=== PATIENT | female | born 1960 | race Caucasian/White ===

== ENCOUNTER → 2017-11-04 09:16 | Outpatient (CLI) | payer OTHER, SELFPAY ==
--- NOTE | 2017-11-04 | DI.MRI.S_ITS ---
PROCEDURE: MR KNEE RT W CON INDICATIONS: Right knee tear TECHNIQUE: After the administration of 50 mL of dilute intra-articular Gadolinium contrast, sagittal T1 spin echo with fat saturation and PD fast spin echo with fat saturation, coronal T1 spin echo with and without fat saturation, coronal T2 fast spin echo with fat saturation, axial PD fast spin echo with fat saturation through the knee. COMPARISON: [facility], MR, KNEE WITH CONTRAST, 07/26/2015, 10:11. FINDINGS: Image quality: Excellent. Menisci: Poorly defined, intrasubstance signal change within the medial meniscal body and posterior horn suggesting fluid degeneration. No definite intrasubstance gadolinium signal intensity. Overall, this appearance is unchanged The lateral meniscus appears intact. Cruciate ligaments: Postsurgical changes related to ACL graft as before. The graft appears intact. The PCL appears intact. Medial structures: The medial collateral ligament appears intact. The posterior oblique ligament, semimembranosus tendon insertions, oblique popliteal ligament, and meniscocapsular junction appear intact. Visualized portions of the pes anserinus tendons appear normal. No abnormal bursal fluid. Lateral structures: The lateral collateral ligament, long and short heads of the biceps femoris tendon appear intact. The popliteus tendon appears normal; the popliteofibular ligament appears intact. The posterosuperior and anteroinferior popliteomeniscal fascicles appear intact. The arcuate and fabellofibular ligaments appear intact around the lateral inferior geniculate artery. Iliotibial band appears normal. Anterior structures: The quadriceps and patellar tendons appear intact. Although there is mild, probably chronic patellar tendinopathy with unchanged appearance Patellar alignment is normal. No femoral trochlear dysplasia or ventral trochlear prominence. No edema in the infrapatellar fat pad. Bone and cartilage: No bone marrow contusions or fractures. Within the medial compartment, there are areas of central full-thickness femoral and tibial articular cartilage loss which appear progressed since the prior study. Within the lateral compartment, there is diffuse surface fraying and partial-thickness loss of the femoral cartilage. There is near full-thickness loss of the tibial cartilage adjacent to the tibial eminence, which appears progressed since prior study. Within the patellofemoral compartment, there is a full-thickness fissuring and small articular cartilage defects are present which are grossly unchanged. There is also full-thickness fissuring of the central femoral trochlear cartilage which appears unchanged. Joint space: No Guo's cyst. No intra-articular bodies. IMPRESSION: Intact ACL graft. 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 Interval progression of degenerative joint disease, most pronounced in the medial and lateral compartments. Chronic patellar tendinopathy. Dictated by: Jeffery Weinberg M.D. on 11/04/2017 at 11:37 Approved by: Jeffery Weinberg M.D. on 11/04/2017 at 11:48
--- NOTE | 2017-11-04 | DI.RAD.S_ITS ---
PROCEDURE: FL KNEE INJECTION MR/CT RT INDICATIONS: knee pain TECHNIQUE: The indications, alternatives, benefits, risks, and complications of the procedure were explained to the patient. Written informed consent was obtained and placed in the chart. The knee was examined fluoroscopically, and a site chosen for knee joint injection. The skin was prepped and draped in a sterile fashion, and 1% Lidocaine infiltrated from the skin down to the articular surface. A hypodermic needle was then introduced into the joint and iodinated contrast media was instilled to confirm the intra-articular needle tip placement. This was followed by approximately 50 mL dilute solution of a gadolinium containing MR contrast agent. The needle was removed and a bandage was applied. An Austin wrap was then applied around the knee joint to keep the contrast from collecting in the suprapatellar recess. The patient experienced no complications throughout the procedure and left the fluoroscopic suite in no apparent distress. FINDINGS: Single fluoroscopic spot image demonstrates intra-articular location to injected iodinated contrast. IMPRESSION: Successful fluoroscopically guided administration of dilute Gadolinium solution into the knee joint for MR arthrogram. Dictated by: Washington Granda M.D. on 11/04/2017 at 10:41 Approved by: Washington Granda M.D. on 11/04/2017 at 10:41
== END ==
PROVIDERS: PCP Nurse Practitioner Family; Visit Provider Orthopaedic Surgery
DX: S83.281A Other tear of lateral meniscus, current injury, right knee, initial encounter (principal); M17.11 Unilateral primary osteoarthritis, right knee
CPT/HCPCS: 20610; 73722; 77002

== ENCOUNTER → 2018-01-01 13:15 | Outpatient (CLI) | payer OTHER, SELFPAY ==
[2018-01-01 13:49] LABS: Add Manual Diff / Slide Review NO; Basophils Percent Auto 0.6 % (0-2); Eosinophils Percent Auto 0.9 % (2-4); Hematocrit 43.6 % (36-46); Hemoglobin 14.5 g/dL (12.0-16.0); Lymphocytes Percent Auto 26.9 % (25-40); Mean Corpuscular HGB Conc 33.2 % (30-36); Mean Corpuscular Hemoglobin 29.8 PG (26-34); Mean Corpuscular Volume 89.7 fL (80-100); Neutrophils Absolute Auto 5000 /uL (3000-5900); Neutrophils Percent Auto 65.6 % (50-75); Platelet Count 303 X10^3/uL (150-400); Red Blood Cell Count 4.86 X10^6/uL (4.0-5.2); Red Cell Distribution Width 13.6 % (11.6-14.8); White Blood Cell Count 7.6 X10^3/uL (4.5-11.0)
[2018-01-01 14:01] LABS: Carbon Dioxide 30 mmol/L (22-32); Chloride 102 mmol/L (98-107); HEMOLYSIS 17 (0-50); Potassium 4.3 mmol/L (3.4-5.1); Sodium 142 mmol/L (137-145)
== END ==
PROVIDERS: PCP Nurse Practitioner Family; Visit Provider Orthopaedic Surgery
DX: Z01.818 Encounter for other preprocedural examination (principal); Z01.812 Encounter for preprocedural laboratory examination
CPT/HCPCS: 36415; 80051; 85025; 93005; 93010

== ENCOUNTER 2018-01-18 13:41 | Emergency (ER) | payer OTHER, SELFPAY ==
[2018-01-18 13:45] VITALS: BP 139/75; PULSE 94; RESP 20; TEMP 36.6; O2SAT 100
--- NOTE | 2018-01-18 13:49 | ED.ABDPAIN ---
HPI - Abdominal Pain <MILE Camarena - Last Filed: 01/18/18 22:17> General Chief Complaint: Abdominal Pain Stated Complaint: states Lap band removed, complications Time Seen by Provider: 01/18/18 13:49 Source: patient Mode of arrival: ambulatory Limitations: no limitations History of Present Illness HPI narrative: a 57-year-old female with history of hypertension and lap band surgery that is a nonsmoker here for complaint of epigastric pain over the past couple of days. She reports that she had lap band removal surgery 10 days ago. She reports 2 days ago she started developing epigastric pain that radiates to her right upper quadrant and also into her back. She states she also has pain with deep inspiration. She denies any fevers or chills. She denies any complications with the incisions of the abdomen. Last bowel movement was yesterday and was unremarkable except she did have 1 episode of loose stool yesterday. She denies any urinary symptoms. she states that she has increased pain with standing. Decreased pain with lying down. She denies any chest pain. No cough no shortness of breath. MD complaint: abdominal pain Related Data Home Medications Medication Instructions Recorded Confirmed cyclobenzaprine 10 mg PO BIDP PRN 01/13/18 01/13/18 fluocinonide 1 sera TP BID PRN 01/13/18 polyethylene glycol 3350 1 cap PO DAILY 01/13/18 01/13/18 Previous Rx's Medication Instructions Recorded fluocinonide-emollient 1 sera TOPICAL BID #15 gm 01/31/17 [Fluocinonide-E] duloxetine 20 mg capsule,delayed 20 mg PO QDAY #90 cap 10/16/17 release duloxetine 30 mg capsule,delayed 30 mg PO QDAY #90 cap 10/16/17 release eletriptan 40 mg tablet 40 mg PO BID PRN #30 tab 10/16/17 estradiol 0.01% (0.1 mg/gram) 0.01 % VAGINAL HS #42.5 gram 10/16/17 vaginal cream gabapentin 300 mg capsule 300 mg PO TID #180 cap 10/16/17 lisinopril 20 1 tab PO Q DAY #90 tab 10/16/17 mg-hydrochlorothiazide 12.5 mg tablet ondansetron 4 mg disintegrating 4 mg SUBLINGUAL Q6HP PRN #20 odt 10/16/17 tablet oxycodone-acetaminophen 5 mg-325 1 tab PO Q4-6H PRN #60 tab 10/16/17 mg tablet valacyclovir 1 gram tablet 1,000 mg PO QDAY #90 tab 10/16/17 Allergies Allergy/AdvReac Type Severity Reaction Status Date / Time No Known Allergies Allergy Unknown Verified 01/13/18 14:02 [NO KNOWN ALLERGIES] NSAIDS (Non-Steroidal AdvReac Intermediate GI feels Verified 01/13/18 14:04 Anti-Inflamma like I've been punched in the stomach Review of Systems <MILE Camarena - Last Filed: 01/18/18 22:17> Constitutional Denies chills, Denies fever(s), Denies lethargy and Denies weakness Eyes Denies change in vision, Denies eye discharge, Denies irritation and Denies loss of vision Cardiovascular Denies chest pain, Denies irregular heart rhythm, Denies lightheadedness, Denies palpitations, Denies dyspnea, Denies dyspnea on exertion and Denies orthopnea Respiratory Denies cough, Denies dyspnea, Denies dyspnea on exertion and Denies wheezing Gastrointestinal Comments: Epigastric pain Genitourinary Denies hematuria, Denies flank pain, Denies urinary incontinence and Denies urinary urgency Musculoskeletal Denies back pain, Denies muscle weakness, Denies numbness and Denies tingling Integumentary/Breasts Denies pruritus, Denies erythema, Denies rash and Denies wounds Neurologic Denies confusion, Denies loss of vision, Denies numbness, Denies tingling and Denies weakness Psychiatric Denies anxiety, Denies confusion, Denies depression, Denies homicidal ideation and Denies suicidal ideation Endocrine Denies palpitations Hematologic/Lymphatic Denies easy bruising Allergic/Immunologic Denies wheezing Exam <MILE Camarena - Last Filed: 01/18/18 22:17> Initial Vital Signs Initial Vital Signs: Vital Signs Temperature 97.8 F 01/18/18 13:45 Pulse Rate 94 H 01/18/18 13:45 Respiratory Rate 20 01/18/18 13:45 Blood Pressure 139/75 01/18/18 13:45 Pulse Oximetry 100 01/18/18 13:45 Const General: cooperative and well developed Nutritional Appearance: well nourished Orientation: alert, awake, oriented x3 and not confused HENMT Mouth: oral mucosae normal and oropharynx normal Eyes Conjunctivae: conjunctivae normal Sclera: sclerae normal Pupils: PERRL EOM: EOM intact bilaterally Chest Chest: normal inspection of the chest Resp Effort & Inspection: normal respiratory effort, able to speak in complete sentences, no respiratory distress and no use of accessory muscles Auscultation: clear to auscultation bilaterally, no rales, no rhonchi and no wheezes Cardio Rate: regular rate Rhythm: regular rhythm Heart Sounds: no click, no gallops, no murmurs and no rubs Pulses: normal peripheral pulses GI Inspection: non-distended Palpation: soft, no hepatosplenomegaly, No guarding, No pulsatile mass and tender ( tenderness to epigastric area) Auscultation: normal bowel sounds Other: laparoscopic incision sites appear to be healing well with no signs of infection slight amount of ecchymosis to the incision site. no induration or fluctuance. General: No CVA tenderness Skin General: no rashes or lesions noted, No jaundice and No petechiae Neuro General: alert, oriented x3, gait normal and no focal motor deficits Speech: speech normal <Efren Tavarez DO - Last Filed: 01/21/18 04:51> Initial Vital Signs Initial Vital Signs: Vital Signs Temperature 97.8 F 01/18/18 13:45 Pulse Rate 94 H 01/18/18 13:45 Respiratory Rate 20 01/18/18 13:45 Blood Pressure 139/75 01/18/18 13:45 Pulse Oximetry 100 01/18/18 13:45 Course <MILE Camarena - Last Filed: 01/18/18 22:17> Orders Ordered: Discontinued Medications Sodium Chloride (Normal Saline 0.9%) 1,000 mls @ 150 mls/hr IV CONT MIREYA Last Infusion: 01/18/18 17:17 Dose: 150 mls/hr Admin: 01/18/18 14:28 Dose: 150 mls/hr Vital Signs - 8 hr 01/18/18 14:20 01/18/18 15:30 01/18/18 16:30 Pulse Rate 87 87 89 Respiratory Rate 13 13 13 Blood Pressure [Right Arm] 124/78 117/70 114/60 Pulse Oximetry 98 99 98 01/18/18 17:00 Pulse Rate 93 H Respiratory Rate 14 Blood Pressure [Right Arm] 124/75 Pulse Oximetry 97 <Efren Tavarez DO - Last Filed: 01/21/18 04:51> Orders Ordered: Discontinued Medications Sodium Chloride (Normal Saline 0.9%) 1,000 mls @ 150 mls/hr IV CONT MIREYA Last Infusion: 01/18/18 17:17 Dose: 150 mls/hr Admin: 01/18/18 14:28 Dose: 150 mls/hr Vital Signs - 8 hr 01/18/18 14:20 01/18/18 15:30 01/18/18 16:30 Pulse Rate 87 87 89 Respiratory Rate 13 13 13 Blood Pressure [Right Arm] 124/78 117/70 114/60 Pulse Oximetry 98 99 98 01/18/18 17:00 Pulse Rate 93 H Respiratory Rate 14 Blood Pressure [Right Arm] 124/75 Pulse Oximetry 97 MDM - Abdominal Pain <MILE Camarena - Last Filed: 01/18/18 22:17> Lab Data Result diagrams: 01/18/18 14:15 01/18/18 14:15 Lab Results 01/18/18 01/18/18 01/18/18 Range/Units 14:15 14:15 15:11 WBC 7.8 (4.5-11.0) X10^3/uL RBC 4.44 (4.0-5.2) X10^6/uL Hgb 13.3 (12.0-16.0) g/dL Hct 39.3 (36-46) % MCV 88.5 (80-100) fL MCH 30.0 (26-34) PG MCHC 33.9 (30-36) % RDW 13.5 (11.6-14.8) % Plt Count 282 (150-400) X10^3/uL Neut % (Auto) 65.1 (50-75) % Lymph % (Auto) 25.8 (25-40) % Toole % (Auto) 6.3 (3-14) % Eos % (Auto) 1.9 L (2-4) % Baso % (Auto) 0.9 (0-2) % Neut # (Auto) 5100 (8620-1909) /uL Sodium 141 (137-145) mmol/L Potassium 3.6 (3.4-5.1) mmol/L Chloride 104 (98-107) mmol/L Carbon Dioxide 29 (22-32) mmol/L BUN 14 (7-17) mg/dL Creatinine 0.70 (0.52-1.04) mg/dL Estimated GFR > 60.0 (>60) mL/min BUN/Creatinine Ratio 20.0 (6-22) Glucose 90 (70-100) mg/dL Calcium 8.8 (8.4-10.2) mg/dL Total Bilirubin 0.4 (0.2-1.3) mg/dL AST 25 (14-36) IU/L ALT 43 (9-52) IU/L Alkaline Phosphatase 81 (38-126) U/L Troponin I < 0.012 (0.01-0.034) ng/mL Total Protein 6.8 (6.3-8.2) g/dL Albumin 3.8 (3.5-5.0) g/dL Globulin 3.0 (1.7-4.1) g/dL Albumin/Globulin Ratio 1.3 (1.0-2.8) Lipase 161 (23-300) U/L Urine RBC 0-1/hpf (0-5/HPF) Urine WBC None seen (0-5/HPF) Urine Bacteria None seen (None) Ur Culture Indicated? Cult not indicated Micro UA Comment Not Reportable Point of care testing: Urine Dip Bedside Urine Glucose Negative Bedside Urine Bilirubin - Negative Bedside Urine Ketone - Negative Urine Specific [place] 1.010 Bedside Urine Occult Blood +/- Bedside Urine pH 6.5 Bedside Urine Protein - Negative Bedside Urine Urobilinogen - Negative Bedside Urine Nitrite - Negative Bedside Urine Leukocytes - Negative Esterase Imaging Data CT scan - abdomen: Radiologist's impression: Patient: Amy Thurston [facility]#: [id number] : 1960Acct:[id number] Age/Sex: 57 / FDate of Service: 01/18/18 Loc: ED Accession Number: [id number] Procedure: CT abdomen pelvis w con Ordering Provider: Ken Rosario PROCEDURE: CT ABDOMEN PELVIS W CON INDICATIONS: epigastric pain last 2 days status post lap band removal TECHNIQUE: After the administration of intravenous contrast, 5 mm thick sections acquired from the diaphragm to the symphysis. 5 mm coronal and sagittal reformats were acquired. For radiation dose reduction, the following was used: automated exposure control, adjustment of mA and/or kV according to patient size. COMPARISON: [facility], CT, CT ANGIO CHEST PE PROTOCOL, 01/18/2018, 15:26. FINDINGS: Image quality: Excellent. ABDOMEN: Lung bases: Lung bases are clear. Heart size is normal. A small hiatal hernia is incidentally noted. Solid organs: Liver is normal in size and enhancement. Gallbladder has been removed. Biliary system is non dilated. Pancreas enhances normally. Spleen is normal in size and enhancement. No adrenal nodules. Kidneys demonstrate normal size and enhancement, without hydronephrosis. Peritoneum and bowel: Bowel loops demonstrate normal wall thickness and caliber. No free fluid or air. Incidental note is made of a normal-appearing appendix. Nodes and vessels: No retroperitoneal or mesenteric adenopathy by size criteria. Aorta and inferior vena cava are normal in size. Miscellaneous: No ventral hernias. Postoperative changes in the anterior abdominal wall can be seen. PELVIS: Genitourinary: Bladder wall thickness is normal. This patient is status post hysterectomy. No adnexal masses are seen. Miscellaneous: No inguinal hernias or adenopathy. Bones: No suspicious bony lesions. No acute vertebral body compression fractures. There is a chronic appearing T12 anterior wedge deformity seen. This patient has transitional lumbar anatomy. For the purposes of this examination, the level with the vestigial ribs is considered to be T12. By this numbering scheme, the L5 level is transitional and highly sacralized on the left. IMPRESSION: No imaging explanation is found for this patient's presenting symptoms. Postoperative changes are seen of the anterior abdominal wall. Incidental note is made of: Cholecystectomy Normal appendix Chronic T12 compression deformity Transitional lumbar anatomy, with a partially sacralized L5 level. Dictated by: Jesus Singleton M.D. on 01/18/2018 at 16:19 Approved by: Jesus Singleton M.D. on 01/18/2018 at 16:22 CT scan - chest: Radiologist's impression: PROCEDURE: CT ANGIO CHEST PE PROTOCOL INDICATIONS: epigastric pain and pain with inspiration sp lap band chastity TECHNIQUE: After the administration of intravenous contrast, 2 mm thick sections acquired from the pulmonary apices to the posterior costophrenic angles. 3-dimensional maximum intensity projection (MIP) coronal and sagittal reformats were then acquired through the thorax. For radiation dose reduction, the following was used: automated exposure control, adjustment of mA and/or kV according to patient size. COMPARISON: [facility], CT, CT ABDOMEN PELVIS W CON, 01/18/2018, 15:26. [facility], CR, CHEST 2 VIEW, 12/05/2016, 7:38. FINDINGS: Image quality: Excellent. Pulmonary arteries: Pulmonary arteries are normal in size, and demonstrate no intraluminal filling defects to suggest central pulmonary embolism. Lungs and pleura: Lungs are clear. No pleural effusions or pneumothorax. Central and peripheral airways are patent. Mediastinum: Heart size is normal, without pericardial effusion. No mediastinal or hilar adenopathy. Thoracic aorta is normal in caliber and enhancement. Esophagus is normal in caliber. There is a small hiatal hernia. Bones and chest wall: No suspicious bony lesions. Age-appropriate bony degenerative changes are seen. Ribs and thoracic spine appear intact throughout. Thyroid gland demonstrates no significant CT abnormality. No axillary or supraclavicular adenopathy. Abdomen: Cholecystectomy clips are seen. Please see the accompanying report of the CT of the abdomen and pelvis. IMPRESSION: Negative for pulmonary embolism. Incidental note is made of: Small hiatal hernia Cholecystectomy Dictated by: Jesus Singleton M.D. on 01/18/2018 at 16:16 Approved by: Jesus Singleton M.D. on 01/18/2018 at 16:19 ECG Data Interpretation: EKG shows sinus rhythm with no ST elevation or depression. No ectopy. Ventricular rate of 86. Pr interval of 182. QRS duration of 98. QT of 369. EKG similar to prior EKG dated 01 January 2018 MDM Narrative Medical decision making narrative: CT of the abdomen was obtained was negative for acute findings. CT of chest was obtained to rule out PE was also negative for any acute findings. EKG shows sinus rhythm with no ST elevation or depression. No ectopy. Cardiac enzymes were obtained were negative. CBC and Chem panel lipase were obtained were negative. No apparent cause of her pain is seen on diagnostics today. Discussed case with Dr. hetal Waters who was on-call for [place] [facility] who is where patient had her lap band removal completed recommends her go using soft diet for the next couple of days and Prilosec. Patient refused the Prilosec she states she is currently on a anti acid medication that she has been prescribed before that she does not remember the name and she will use that instead. Patient is to follow up with the surgical office next week. [id number] Tylenol as needed for any discomfort. For any worsening symptoms return to the emergency room. <Efren Tavarez DO - Last Filed: 01/21/18 04:51> Lab Data Lab Results 01/18/18 01/18/18 01/18/18 Range/Units 14:15 14:15 15:11 WBC 7.8 (4.5-11.0) X10^3/uL RBC 4.44 (4.0-5.2) X10^6/uL Hgb 13.3 (12.0-16.0) g/dL Hct 39.3 (36-46) % MCV 88.5 (80-100) fL MCH 30.0 (26-34) PG MCHC 33.9 (30-36) % RDW 13.5 (11.6-14.8) % Plt Count 282 (150-400) X10^3/uL Neut % (Auto) 65.1 (50-75) % Lymph % (Auto) 25.8 (25-40) % [place]ole % (Auto) 6.3 (3-14) % Eos % (Auto) 1.9 L (2-4) % Baso % (Auto) 0.9 (0-2) % Neut # (Auto) 5100 (0856-3394) /uL Sodium 141 (137-145) mmol/L Potassium 3.6 (3.4-5.1) mmol/L Chloride 104 (98-107) mmol/L Carbon Dioxide 29 (22-32) mmol/L BUN 14 (7-17) mg/dL Creatinine 0.70 (0.52-1.04) mg/dL Estimated GFR > 60.0 (>60) mL/min BUN/Creatinine Ratio 20.0 (6-22) Glucose 90 (70-100) mg/dL Calcium 8.8 (8.4-10.2) mg/dL Total Bilirubin 0.4 (0.2-1.3) mg/dL AST 25 (14-36) IU/L ALT 43 (9-52) IU/L Alkaline Phosphatase 81 (38-126) U/L Troponin I < 0.012 (0.01-0.034) ng/mL Total Protein 6.8 (6.3-8.2) g/dL Albumin 3.8 (3.5-5.0) g/dL Globulin 3.0 (1.7-4.1) g/dL Albumin/Globulin Ratio 1.3 (1.0-2.8) Lipase 161 (23-300) U/L Urine RBC 0-1/hpf (0-5/HPF) Urine WBC None seen (0-5/HPF) Urine Bacteria None seen (None) Ur Culture Indicated? Cult not indicated Micro UA Comment Not Reportable Point of care testing: Urine Dip Bedside Urine Glucose Negative Bedside Urine Bilirubin - Negative Bedside Urine Ketone - Negative Urine Specific [place] 1.010 Bedside Urine Occult Blood +/- Bedside Urine pH 6.5 Bedside Urine Protein - Negative Bedside Urine Urobilinogen - Negative Bedside Urine Nitrite - Negative Bedside Urine Leukocytes - Negative Esterase Discharge Plan Departure Patient Disposition: Home Clinical Impression: Abdominal pain Discharge Date/Time: 01/18/18 17:20 Interventions: ED Discharge Assessment Last Done: 01/18/18 17:19 Activity Restrictions/Additional Instructions: laboratory results and imaging today were unremarkable. cause of your discomfort is not seen today on testing. Discussed case with Dr. Armendariz was on-call for Dr. velásquez who recommends using antiacid medication that you have already got prescribed and also soft diet for the next few days. Follow up with Dr. velásquez here later this week. Use [id number] Tylenol as needed for any discomfort. For any worsening symptoms return to the emergency room. Prescriptions: No Action duloxetine 20 mg capsule,delayed release(DR/EC) 20 mg PO QDAY Qty: 90 RF: 3 duloxetine [Cymbalta] 30 mg capsule,delayed release(DR/EC) 30 mg PO QDAY Qty: 90 RF: 3 eletriptan 40 mg tablet 40 mg PO BID PRN (Reason: migraine headache) Qty: 30 RF: 11 estradiol [Estrace] 0.01 % (0.1 mg/gram) cream 0.01 % Vaginal HS Qty: 42.5 RF: 11 gabapentin [Neurontin] 300 mg capsule 300 mg PO TID Qty: 180 RF: 3 lisinopril-hydrochlorothiazide 20-12.5 mg tablet 1 tab PO Q DAY Qty: 90 RF: 3 ondansetron [Zofran ODT] 4 mg tablet,disintegrating 4 mg Sublingual Q6HP PRN (Reason: nausea) Qty: 20 RF: 11 valacyclovir 1 gram tablet 1,000 mg PO QDAY Qty: 90 RF: 3 oxycodone-acetaminophen 5-325 mg tablet 1 tab PO Q4-6H PRN (Reason: pain) Qty: 60 RF: 0 fluocinonide-emollient [Fluocinonide-E] 0.05 % cream 1 sera Topical BID Qty: 15 RF: 5 cyclobenzaprine 10 MG tablet 10 mg PO BIDP PRN (Reason: Muscle Spasm) RF: 0 fluocinonide 0.1 % cream 1 sera TP BID PRN (Reason: Eczema) RF: 0 polyethylene glycol 3350 17 gram/dose Powder 1 cap PO DAILY RF: 0 Referrals: April Belcher ARNP [Primary Care Provider] - <Efren Tavarez DO - Last Filed: 01/21/18 04:51> Cosign ED Attending Jayshree Attestation: I was immediately available in the department for consultation. Documentation has been reviewed. I agree with assessment and plan.
--- NOTE | 2018-01-18 14:03 | DI.CT.S_ITS ---
PROCEDURE: CT ANGIO CHEST PE PROTOCOL INDICATIONS: epigastric pain and pain with inspiration sp lap band chastity TECHNIQUE: After the administration of intravenous contrast, 2 mm thick sections acquired from the pulmonary apices to the posterior costophrenic angles. 3-dimensional maximum intensity projection (MIP) coronal and sagittal reformats were then acquired through the thorax. For radiation dose reduction, the following was used: automated exposure control, adjustment of mA and/or kV according to patient size. COMPARISON: [facility], CT, CT ABDOMEN PELVIS W CON, 01/18/2018, 15:26. [facility], CR, CHEST 2 VIEW, 12/05/2016, 7:38. FINDINGS: Image quality: Excellent. Pulmonary arteries: Pulmonary arteries are normal in size, and demonstrate no intraluminal filling defects to suggest central pulmonary embolism. Lungs and pleura: Lungs are clear. No pleural effusions or pneumothorax. Central and peripheral airways are patent. Mediastinum: Heart size is normal, without pericardial effusion. No mediastinal or hilar adenopathy. Thoracic aorta is normal in caliber and enhancement. Esophagus is normal in caliber. There is a small hiatal hernia. Bones and chest wall: No suspicious bony lesions. Age-appropriate bony degenerative changes are seen. Ribs and thoracic spine appear intact throughout. Thyroid gland demonstrates no significant CT abnormality. No axillary or supraclavicular adenopathy. Abdomen: Cholecystectomy clips are seen. Please see the accompanying report of the CT of the abdomen and pelvis. IMPRESSION: Negative for pulmonary embolism. Incidental note is made of: Small hiatal hernia Cholecystectomy Dictated by: Jesus Singleton M.D. on 01/18/2018 at 16:16 Approved by: Jesus Singleton M.D. on 01/18/2018 at 16:19
--- NOTE | 2018-01-18 14:04 | DI.CT.S_ITS ---
PROCEDURE: CT ABDOMEN PELVIS W CON INDICATIONS: epigastric pain last 2 days status post lap band removal TECHNIQUE: After the administration of intravenous contrast, 5 mm thick sections acquired from the diaphragm to the symphysis. 5 mm coronal and sagittal reformats were acquired. For radiation dose reduction, the following was used: automated exposure control, adjustment of mA and/or kV according to patient size. COMPARISON: [facility], CT, CT ANGIO CHEST PE PROTOCOL, 01/18/2018, 15:26. FINDINGS: Image quality: Excellent. ABDOMEN: Lung bases: Lung bases are clear. Heart size is normal. A small hiatal hernia is incidentally noted. Solid organs: Liver is normal in size and enhancement. Gallbladder has been removed. Biliary system is non dilated. Pancreas enhances normally. Spleen is normal in size and enhancement. No adrenal nodules. Kidneys demonstrate normal size and enhancement, without hydronephrosis. Peritoneum and bowel: Bowel loops demonstrate normal wall thickness and caliber. No free fluid or air. Incidental note is made of a normal-appearing appendix. Nodes and vessels: No retroperitoneal or mesenteric adenopathy by size criteria. Aorta and inferior vena cava are normal in size. Miscellaneous: No ventral hernias. Postoperative changes in the anterior abdominal wall can be seen. PELVIS: Genitourinary: Bladder wall thickness is normal. This patient is status post hysterectomy. No adnexal masses are seen. Miscellaneous: No inguinal hernias or adenopathy. Bones: No suspicious bony lesions. No acute vertebral body compression fractures. There is a chronic appearing T12 anterior wedge deformity seen. This patient has transitional lumbar anatomy. For the purposes of this examination, the level with the vestigial ribs is considered to be T12. By this numbering scheme, the L5 level is transitional and highly sacralized on the left. IMPRESSION: No imaging explanation is found for this patient's presenting symptoms. Postoperative changes are seen of the anterior abdominal wall. Incidental note is made of: Cholecystectomy Normal appendix Chronic T12 compression deformity Transitional lumbar anatomy, with a partially sacralized L5 level. Dictated by: Jesus Singleton M.D. on 01/18/2018 at 16:19 Approved by: Jesus Singleton M.D. on 01/18/2018 at 16:22
[2018-01-18 14:20] VITALS: BP 124/78; PULSE 87; RESP 13; O2SAT 98
[2018-01-18 14:25] LABS: Add Manual Diff / Slide Review NO; Basophils Percent Auto 0.9 % (0-2); Eosinophils Percent Auto 1.9 % (2-4); Hematocrit 39.3 % (36-46); Hemoglobin 13.3 g/dL (12.0-16.0); Lymphocytes Percent Auto 25.8 % (25-40); Mean Corpuscular HGB Conc 33.9 % (30-36); Mean Corpuscular Volume 88.5 fL (80-100); Monocytes Percent Auto 6.3 % (3-14); Neutrophils Absolute Auto 5100 /uL (3000-5900); Neutrophils Percent Auto 65.1 % (50-75); Platelet Count 282 X10^3/uL (150-400); Red Blood Cell Count 4.44 X10^6/uL (4.0-5.2); Red Cell Distribution Width 13.5 % (11.6-14.8); White Blood Cell Count 7.8 X10^3/uL (4.5-11.0)
[2018-01-18] MEDS: SODIUM CHLORIDE 0.9% 1,000 ML 150 ML IV (14:28)
[2018-01-18 14:34] LABS: Alanine Aminotransferase 43 IU/L (9-52); Albumin 3.8 g/dL (3.5-5.0); Albumin Globulin Ratio 1.3 (1.0-2.8); Alkaline Phosphatase 81 U/L (38-126); Aspartate Aminotransferase 25 IU/L (14-36); Bilirubin Total 0.4 mg/dL (0.2-1.3); Blood Urea Nitrogen 14 mg/dL (7-17); Calcium 8.8 mg/dL (8.4-10.2); Carbon Dioxide 29 mmol/L (22-32); Chloride 104 mmol/L (98-107); Estimated Glomerular Filt Rate > 60.0 mL/min (>60); Glucose 90 mg/dL (70-100); HEMOLYSIS 20 (0-50); Lipase 161 U/L (23-300); Potassium 3.6 mmol/L (3.4-5.1); Sodium 141 mmol/L (137-145); Total Protein 6.8 g/dL (6.3-8.2)
[2018-01-18 14:49] LABS: Troponin I < 0.012 ng/mL (0.01-0.034)
[2018-01-18 15:27] LABS: Bacteria Urine None Seen; WBC Urine None Seen (0-5/HPF)
[2018-01-18 15:30] VITALS: BP 117/70; PULSE 87; RESP 13; O2SAT 99
[2018-01-18 15:41] LABS: RBC Urine 0-1/HPF (0-5/HPF)
[2018-01-18 15:42] LABS: Culture Indicated Urine Cult Not Indicated
[2018-01-18 16:30] VITALS: BP 114/60; PULSE 89; RESP 13; O2SAT 98
[2018-01-18 17:00] VITALS: BP 124/75; PULSE 93; RESP 14; O2SAT 97
== END 2018-01-18 17:20 | disposition home or self-care (01) ==
PROVIDERS: Emergency Provider Nurse Practitioner Family; PCP Nurse Practitioner Family
DX: R10.9 Unspecified abdominal pain (principal)
CPT/HCPCS: 71275; 74177; 80053; 81003; 81015; 83690; 84484; 85025; 93005; 96360; 96361; 99283; 99285; Q9967

== ENCOUNTER 2018-01-30 09:06 | Inpatient (IN) | payer OTHER, SELFPAY ==
[2018-01-13 13:47] VITALS: BMI 32.5
[2018-01-30] VITALS (11 sets, daily range): BP systolic 108–139; BP diastolic 67–82; PULSE 82–106; RESP 12–18; TEMP 35.8–36.8; O2SAT 90–98; BMI 32.5
--- NOTE | 2018-01-30 06:00 | DI.RAD.S_ITS ---
PROCEDURE: XR KNEE RT 1TO2V INDICATIONS: prosthesis placement TECHNIQUE: 2 view(s) of the knee acquired. COMPARISON: None. FINDINGS: Bones: Patient is status post right knee joint arthroplasty. Hardware components are in expected positions. Postsurgical changes compatible with prior anterior cruciate ligament tear noted. Visualized bony structures are intact. Soft tissues: Overlying postoperative changes are noted. Multiple skin joaquim noted. IMPRESSION: Expected postsurgical change for right knee arthroplasty. Dictated by: Sybil Henry MD, PhD on 01/30/2018 at 15:23 Approved by: Sybil Henry MD, PhD on 01/30/2018 at 15:24
[2018-01-30] MEDS: LACTATED RINGERS 1,000 ML 42 ML IV ×2 (09:46→13:48)
[2018-01-30] MEDS: ACETAMINOPHEN 325 MG TABLET 975 MG PO ×3 (09:48→22:43)
[2018-01-30] MEDS: PREGABALIN 75 MG CAPSULE PO (09:48)
[2018-01-30] MEDS: CELECOXIB 200 MG CAPSULE PO (09:48)
[2018-01-30] MEDS: ONDANSETRON 4 MG/2 ML INJ IV ×2 (10:16→15:53)
[2018-01-30] MEDS: DEXAMETHASONE 10 MG/ML VIAL 8 MG IV (10:17)
--- NOTE | 2018-01-30 11:10 | PM.PREOP ---
Pre-operative Note Interval Note Pre-op Check: Yes History & Physical Reviewed by Physician and Yes Exam Performed Changes: No
[2018-01-30] MEDS: CEFAZOLIN 2 GM/100 ML FROZ.PIGGY IV ×2 (12:02→20:01)
--- NOTE | 2018-01-30 12:17 | PM.OP.1 ---
Operative Date/Time/Diagnoses Date of procedure: 01/30/18 Time of procedure: 13:35 Pre-op diagnosis: Right knee osteoarthritis Post-op diagnosis: same Procedure & Clinicians Procedure: Right total knee arthroplasty Same procedure as scheduled: Yes Indications: The patient presents today for total knee arthroplasty after failure of conservative treatment. The nature of the procedure including the risks and benefits, alternatives, postoperative course and expected outcome were discussed and all questions answered. Consent was obtained. Operative site confirmed and marked. Surgeon: Hao Michaud Engraver Machine: Fabien Diaz Anesthesia Type: General, Spinal and Local Operative Notes Findings: Osteoarthritis. Closure Type: primary Specimen(s): none sent Implants & Drains: [employer] Journey 2 BCS : 5 femur, 3 tibia, 9 mm BCS poly and 32 mm x 9 mm patella. Applied: implant(s) Estimated Blood Loss (mL): 5 Blood products transfused: none Tourniquet time (min): 20 Procedure in detail: The patient was taken to the operative suite and placed under general and spinal anesthesia. The patient was given prophylactic antibiotics prior to surgery. The patient was also given tranexamic acid, 1 g, just prior to surgery for postoperative hemostasis. The lateral knee was prepped and the joint injected with 20 mL of 1% Lidocaine with epinephrine. The knee was then prepped and draped in usual sterile fashion. The leg was exsanguinated with an Esmarch dressing and the tourniquet raised to 250 torr. A 15 cm anterior incision was made. Next a medial trivector arthrotomy was made. The extensor mechanism was marked to ensure accurate repair. Initial exposing dissection was carried out medially and laterally. The knee was then extended and the patellar thickness was measured and a cut made removing approximately 9 mm of bone with a goal of restoring normal patellar thickness. The patella was then sized and drilled. Some excess lateral bone was excised and the patellofemoral ligament released. The tourniquet was then released. The knee was then flexed and the [employer] Visionaire femoral guide was placed. The anterior pins were placed and the distal rotation holes drilled. The distal cutting guide was placed and the templated distal femoral cut was made. The templating cutting block was then placed and the anterior, posterior and chamfer cuts made. The patient had metal in the tibia and a Visionaire guide could not be made. The external tibial guide was positioned to take approximately 9 mm off the less affected lateral side. The proximal tibial cut was then made with an oscillating saw. All meniscus and bony debris was then removed. Flexion extension gaps were checked. No specific balancing was required other than routine exposure and removal of osteophytes. The soft tissues were then injected with a combination of 20 mL of half percent Marcaine with epinephrine and 20 mL of Exparel. The trial components were then placed. The knee went into full extension and flexion beyond 120?. There was excellent medial- lateral balance throughout motion with just slight increased lateral laxity. Patellar tracking was excellent. The trial components were removed and size is confirmed for the final implants. The knee was then exsanguinated with an Esmarch dressing and the tourniquet reapplied for cementing. The knee was cleansed with Pulsavac irrigation and dried. The final components were cemented in with high viscosity vacuum mixed bone cement with antibiotics. The knee was held in extension and the patellar clamp until the cement had adequately cured. The knee was then irrigated with dilute Betadine solution. The extensor mechanism was closed with 5 interrupted #1 Vicryl sutures in 90 degrees of flexion. The joint was then injected with a combination of 1 g of tranexamic acid and 20 mL of quarter percent Marcaine with epinephrine. The subcutaneous tissue was closed with 2-0 Vicryl. The skin was closed with joaquim and surgical adhesive. An Aquacell] dressing and Austin wrap were then applied. Condition: stable Disposition: PACU Plan for aftercare: [facility] protocol for total knee arthroplasty.
--- NOTE | 2018-01-30 12:41 | SUR.OPER ---
Supine on padded OR bed. Pillow under head, arms secured on padded armboards <90 degree abduction. Safety belt across torso. Non-operative leg secured with tape over blanket over lower leg. Operative leg secured in DeMayo/Wyatt positioner. Foam padded brace at thigh of operative leg.
[2018-01-30] MEDS: BUPIVACAINE 0.5% W/ EPI (PF) 20 ML, BUPIVACAINE LIPOSOME 266 MG, SODIUM CHLORIDE 0.9% 2... INJ (12:48)
[2018-01-30] MEDS: BUPIVACAINE 0.5% (PF) 10 ML, TRANEXAMIC ACID 1,000 MG, SODIUM CHLORIDE 0.9% 20 ML INJ (12:50)
[2018-01-30] MEDS: LIDOCAINE 1% W/EPI INJ 20 ML INJ (12:51)
[2018-01-30] MEDS: POVIDONE-IODINE 15 ML, SODIUM CHLORIDE 0.9% 250 ML TOP (12:52)
[2018-01-30] MEDS: TRANEXAMIC ACID 1,000 MG VIAL 1000 MG INJ (12:54)
[2018-01-30] MEDS: LACTATED RINGERS 1,000 ML 125 ML IV ×2 (14:53→22:52)
--- NOTE | 2018-01-30 15:00 | PC.NURSE ---
Admission Pt arrived to floor a/o x3, 96% RA, Spinal effective, ache to R knee, 07/06. CMS+ PP+ SCDs in place, IVF running. Medicated for nausea/premedicated for narcotic. Dilaudid given. Pt feels meds wear off quickly, addressed options for pain control. Spouse at bedside.
[2018-01-30] MEDS: HYDROMORPHONE 0.5 MG INJ IV ×2 (15:56→18:16)
--- NOTE | 2018-01-30 17:12 | PT.IPTN ---
Current Diagnoses Unilateral primary osteoarthritis, right knee (01/30/18) Surgery Performed Operation Date: 01/30/18 10:30 Actual Procedures p Total Knee Arthroplasty(Right) - Hao Michaud MD Physical Therapy Treatment Note M3 PT-IP Subjective Start: 01/30/18 17:08 Freq: NEEDED Status: Active Protocol: Document 01/30/18 17:09 EA (Rec: 01/30/18 17:12 EA [id number]) Subjective Physical Therapy Visit Type Type Patient Refusal Notes Patient refused to participate in PT evaluation at this time (1700) due to incomplete sensation to RLE. Patient agreeable to perform it tomorrow a.m. Nurse in-charge informed with refusal and patient's pre- caution.
[2018-01-30] MEDS: ACYCLOVIR 400 MG TABLET 800 MG PO ×2 (17:53→22:42)
[2018-01-30] MEDS: GABAPENTIN 300 MG CAPSULE PO ×2 (17:56→20:03)
[2018-01-30] MEDS: CYCLOBENZAPRINE 10 MG TABLET PO (18:09)
[2018-01-30] MEDS: OXYCODONE IR 5 MG TABLET PO ×2 (20:01→22:42)
[2018-01-30] MEDS: ASPIRIN EC 81 MG TABLET PO (20:03)
[2018-01-30] MEDS: ONDANSETRON 4 MG ODT PO (20:06)
[2018-01-31] MEDS: HYDROMORPHONE 0.5 MG INJ IV ×7 (01:56→20:25)
--- NOTE | 2018-01-31 02:53 | PC.NURSE ---
Addendum entered by Rama Lord R.N. 01/31/18 05:25: States pain is again up to 8/10; medicated with IV Dilaudid. IVF stopped per MD order since patient taking good po intake. Original Note: Addendum entered by Rama Lord R.N. 01/31/18 03:27: Up to ambulate in tello. Walked with 2 assist and walker to room 223 and back. States pain is now 6/10; medicated with Oxycodone (+ Zofran to prevent nausea from narcotics). Original Note: Patient is alert and oriented. Breath sounds CTA with RA sat of 97%. HRR. Denies nausea. BT present but denies flatus. Able to move self in bed but requires 1 assist + walker when out of bed. Still has some numbness in plantar surface of right foot. Complains of 7/10 right knee pain and was medicated with IV Dilaudid and now states pain is 4/10. Voiding without difficulty. Wearing bilateral SCD's. Reports recent fall so fall risk score is high and bed alarm is activated.
[2018-01-31] MEDS: ONDANSETRON 4 MG ODT PO ×2 (03:21→07:34)
[2018-01-31] MEDS: OXYCODONE IR 5 MG TABLET PO ×5 (03:22→20:24)
[2018-01-31 03:25] VITALS: BP 124/76; PULSE 95; RESP 20; TEMP 36.5; O2SAT 97
[2018-01-31] MEDS: CEFAZOLIN 2 GM/100 ML FROZ.PIGGY IV (03:33)
[2018-01-31 05:30] LABS: Hematocrit 35.8 % (36-46)
[2018-01-31] MEDS: ACYCLOVIR 400 MG TABLET 800 MG PO ×5 (05:36→21:27)
[2018-01-31] MEDS: CYCLOBENZAPRINE 10 MG TABLET PO (07:35)
[2018-01-31 08:00] VITALS: BP 125/73; PULSE 91; RESP 16; TEMP 36.6; O2SAT 99
--- NOTE | 2018-01-31 09:15 | PT.IIE ---
Current Diagnoses Rheumatoid arthritis, unspecified (01/30/18) Unilateral primary osteoarthritis, right knee (01/30/18) Fibromyalgia (01/30/18) Presence of unspecified artificial knee joint (01/30/18) Surgery Performed Operation Date: 01/30/18 10:30 Actual Procedures p Total Knee Arthroplasty(Right) - Hao Michaud MD Surgical History (Last Reviewed 01/18/18 @ 14:21 by MILE Camarena) Hx of laparoscopic gastric banding (Chronic) History of esophagogastroduodenoscopy (EGD) (Acute) History of removal of laparoscopic gastric banding device (Acute 01/08/18) Status post delivery Status post knee surgery Medical History (Last Reviewed 01/30/18 @ 16:34 by Sean Baires, PT, [place]) Arthritis (Acute) Fatigue (Acute) History of hysterectomy (Acute) Knee pain, right (Acute) Postmenopausal (Acute) Rheumatoid arthritis (Acute) Actinic keratitis (Chronic 1979) Allergy (Chronic Unknown) Anxiety (Chronic 2000) Eczema (Chronic 2012) Fibromyalgia (Chronic 2002) Generalized headaches (Chronic Unknown) Hyperlipidemia (Chronic Unknown) Hypertension (Chronic Unknown) Hypothyroidism (Chronic Unknown) Migraines (Chronic Unknown) Rosacea (Chronic Unknown) Urinary incontinence (Chronic Unknown) Chickenpox (Resolved Unknown) Fibroids (Resolved Unknown) Foot pain (Resolved Unknown) Herpes (Resolved 1979) Shoulder pain (Resolved 2014) Skin cancer (Resolved Unknown) Physical Therapy Inpatient Evaluation/Re-Eval M1 PT/OT-IP Prior Functional Status Start: 01/30/18 17:08 Freq: NEEDED Status: Active Protocol: Document 01/31/18 09:15 AB (Rec: 01/31/18 11:26 AB [id number]) Medical Review Prior Functional Status Medical History Reviewed Yes Communication able to make needs known Mobility and Gait pt stated that she is independent with all mobilities and ambulation without AD but has used a SPC for ambulation after previous knee arthroscopy Social History Household Members spouse Living Arrangements House Number of Floors (Floors) Two Floors Number of Stairs To Enter/Railing? 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 Additional Social History Comment pt works at home and spouse works at home as well and can assist pt 19/11 if needed M2 PT-IP Current Condition Start: 01/30/18 17:08 Freq: NEEDED Status: Active Protocol: Document 01/31/18 09:15 AB (Rec: 01/31/18 11:26 AB [id number]) Physical Therapy Current Condition Current Condition Evaluation Date 01/31/18 Treatment Diagnosis s/p R TKA; difficulty in walking Onset Date 01/30/18 Weight Bearing Status Weight Bearing Status Weight Bear as Tolerated M3 PT-IP Subjective Start: 01/30/18 17:08 Freq: NEEDED Status: Active Protocol: Document 01/31/18 09:15 AB (Rec: 01/31/18 11:26 AB [id number]) Subjective Physical Therapy Visit Type Type Initial Evaluation Visit Start Time 09:15 Visit Stop Time 10:26 Total Visit Minutes 45 Notes pt seen for split visits due to request of having pain meds take effect first prior to moving Number of DIRECTOR REACTOR PROJECTS Visits 0 Physical Therapy Visit Comments Patient Comments c/o increase R knee pain but agreeable to do PT Therapy Pain Assessment Pain When Pain Assessed At Rest Pain Present Pain Present Pain Reported Location rt knee Intensity 8 Scale Used Numeric (1 - 10) Description Tightness Throbbing Pain Management Techniques Apply Cold Re-positioning Timing of Activity with Medications M4 PT-IP Mobility and Gait Start: 01/30/18 17:08 Freq: NEEDED Status: Active Protocol: Document 01/31/18 09:15 AB (Rec: 01/31/18 11:26 AB [id number]) PT-Bed Mobility Assessment Supine to Sit Supine to Sit Standby Assistance Head of Bed Elevated Sit to Supine Sit to Supine Moderate Assistance Maximum Assistance 1 Person Assistance Head of Bed Elevated Scooting Scooting to Edge of Bed Contact Guard Assistance PT-Transfer Assessment Sit to and From Stand Sit to and from Stand Minimal Assistance 1 Person Assistance Use of Upper Extremities Equipment Transfer Assistive Device Gait Belt Front Wheeled Walker Orthotic/Prosthetic Devices or Brace: No Transfers Transfer Destination Bed Chair Transfer Technique pt ambulated using FWW bed <> chair Transfer Ability Level of Assist Minimal Assistance 1 Person Assistance Use of Upper Extremities Comments Mobility Comments pt required mod to max A for elevating RLE up to bed. spouse assisted pt with LE per pt's requested. Gait Assessment Gait Gait Assistance Required: Minimum Assistance Distance (Feet) 12 Able to Maintain Weight Bearing Status Yes During Gait Assistive Devices Assistive Device Gait Belt Front Wheeled Walker Orthotic/Prosthetic Devices or Brace: No Gait Deviations General Gait Pattern Antalgic Decreased Stride Length Decreased Feet Clearance Step-to Gait Factors Limiting Gait Function Factors Limiting Gait Function Decreased Activity Tolerance Decreased Strength Limited Range of Motion Pain Poor Balance Comments Gait Comments pt ambulated to the chair using FWW ~ 12 ft min A and cues. pt presents with antalgic gait with difficulty weight bearing on RLE due to c /o pain. encouraged pt to sit up on chair but stated that she only had 2 hours of sleep and requested to go back to bed after ~ 5 min of sitting on chair. pt ambulated back to bed using FWW requiring min A and cues. positioned pt in bed. ice pack provided. call light and table placed within reach. Left pt with spouse in room. PT-Balance Assessment Sitting Balance and Reactions Static Sitting Balance Ability Good Dynamic Sitting Balance Ability Good Standing Balance and Reactions Static Standing Balance Ability Fair Dynamic Standing Balance Ability Fair Device Used FWW M5 PT-IP Objective Assessments Start: 01/30/18 17:08 Freq: NEEDED Status: Active Protocol: Document 01/31/18 09:15 AB (Rec: 01/31/18 11:26 AB [id number]) Orientation Orientation/Cognition Level of Alertness Alert Orientation Name Age Birthday Month Date Year Day of Week Place Situation Safety Awareness Decreased Safety Awareness Gross Range of Motion Lower Extremity ROM Assessment Right Impaired Impairments R knee flexion ~ 30 degrees with pain limiting movement Strength Lower Extremity Strength Assessment Right Impaired Knee 3+/5 Ankle 5/5 Sensation Assessment Sensation Gross Sensation WNL M6 PT-IP Treatment Start: 01/30/18 17:08 Freq: NEEDED Status: Active Protocol: Document 01/31/18 09:15 AB (Rec: 01/31/18 11:26 AB [id number]) Physical Therapy Treatment Education Education Provided Precautions Weight Bearing Status Post-Op Packet Safety M7 PT-IP Assessment and Plan Start: 01/30/18 17:08 Freq: NEEDED Status: Active Protocol: Document 01/31/18 09:15 AB (Rec: 01/31/18 11:26 AB [id number]) PT Summary Assessment and Plan Potential Rehabilitation Potential Good Status of Condition at Evaluation Evolving Summary Impairments Pain ROM Strength Balance Sensation Bed Mobility Transfers Gait Activity Tolerance Assessment Summary pt with c/o increase pain on RLE affecting mobility. pt requires min A with transfers and ambulation using FWW and unable to tolerate much activity due to pain. pt plans to go home with spouse to assist her. caregiver training will be conducted when appropriate and stair climbing training will be completed prior to d/c. Goals Bed Mobility Goal Standby Assistance Transfer Goal Standby Assistance Gait Goal Standby Assistance Gait Distance 150 Other Goals up/down 2 platform steps without rails Days to Meet Goals 3 Frequency of Treatment Frequency Of Treatment Twice a Day Treatment Plan Physical Therapy Treatment Plan Bed Mobility Training Transfer Training Gait Training Therapeutic Exercise Balance Retraining Post Op Education Discharge Planning Hot or Cold Pack Neuromuscular Re-ed Coordination Retraining Manual Therapy Recommendations To Nursing Amount of Assist Needed 1 Person Assist Discharge Recommendations PT Discharge Recommendations Home with Assistance Outpatient PT
[2018-01-31] MEDS: ACETAMINOPHEN 325 MG TABLET 975 MG PO ×3 (09:22→20:26)
[2018-01-31] MEDS: ASPIRIN EC 81 MG TABLET PO ×2 (09:22→20:26)
[2018-01-31] MEDS: DULOXETINE 20 MG CAPSULE PO (09:34)
[2018-01-31] MEDS: LISINOPRIL 20 MG TABLET PO (09:34)
[2018-01-31] MEDS: DULOXETINE 30 MG CAPSULE PO (09:34)
[2018-01-31] MEDS: valACYclovir 500 MG TABLET PO (09:34)
[2018-01-31] MEDS: GABAPENTIN 300 MG CAPSULE PO ×3 (09:34→20:26)
[2018-01-31] MEDS: IBUPROFEN 600 MG TABLET PO (09:36)
[2018-01-31] MEDS: SODIUM CHLORIDE 0.9% FLUSH 10 ML IV ×2 (09:43→20:26)
--- NOTE | 2018-01-31 10:11 | RT ---
Patient encouraged to use IS Q1 hour while awake. States this is her third surgery in a short amount of time, she knows she is to use the IS. Encouraged her to cough as well with IS use for secretion clearance.
--- NOTE | 2018-01-31 11:05 | PM.PNPO.1 ---
Subjective Date Patient Seen: 01/31/18 Time Patient Seen: 11:05 Interval history: POD #1 status post right total knee arthroplasty with Dr. Michaud. Patient's pain is not well controlled with Tylenol, IV Dilaudid, Percocet, and Flexeril, she states she is still at a 10/10 pain. Patient has history of fibromyalgia and rheumatoid arthritis. She has an intolerance to NSAIDs that cause nausea but no true anaphylactic allergy. She has taken Toradol in the past with no side effects. She has also taken Vistaril in the past with no side effects. She states she is both having muscle spasms and a deep pain in her knee. Exam Vital Signs (past 8 hours): - 01/31/18 03:25 01/31/18 08:00 Temperature 97.7 F 97.9 F Pulse Rate 95 H 91 H Respiratory Rate 20 16 Blood Pressure 124/76 125/73 Pulse Oximetry 97 99 Oxygen Delivery Method Room Air Oxygen Flow Rate 0 Narrative Exam Narrative: Patient lying in bed, visibly in pain. She is alert and oriented x3. Calves are soft, compressible, nontender bilaterally. Sensation intact light touch throughout bilateral lower extremities. She is able to actively dorsiflex and plantar flex. Objective Labs Result Diagrams: 01/31/18 05:10 Labs: Laboratory Results - last 24 hr 01/31/18 05:10 Hgb 12.0 Hct 35.8 L Assessment & Plan Post-op (1) S/P total knee arthroplasty: Current Visit: Yes Status: Acute (2) Rheumatoid arthritis: Current Visit: Yes Status: Acute (3) Fibromyalgia: Current Visit: Yes Status: Acute Postoperative Procedures Operation Date: 01/30/18 10:30 Actual Procedures Side Surgeon p Total Knee Arthroplasty Right Hao Michaud MD POD #1 status post right total knee arthroplasty with Dr. Michaud. DC ibuprofen. Patient renal function labs are normal and reviewed. Will do 1 time dose of IV Toradol 15 mg now. She will then do Toradol 10 mg p.o. dose every 8 hr for 24 hr. Flexeril DCd and changed to Vistaril. Patient has been up with physical therapy. Plan to discharge in next 1-2 days once pain is adequately controlled and mobilizing safely.
[2018-01-31] MEDS: hydrOXYzine pamoate 25 MG CAPSULE PO ×3 (11:24→19:17)
[2018-01-31] MEDS: KETOROLAC 15 MG/ML VIAL IV (11:27)
[2018-01-31 12:00] VITALS: BP 94/56; PULSE 83; RESP 16; TEMP 36.6; O2SAT 99
--- NOTE | 2018-01-31 12:30 | PC.NURSE ---
Lala states If there was an 11 on the 10 pain scale, that would be my pain when I get up and move. She states she has periodic stabbing pain even while resting in bed. Currently while at rest her pain is rated as 5/10. She currently seems a bit more relaxed as evidenced by no longer grimacing and crying out as compared to this AM. Lala has recently been given Percolone and Vistaril together as well as the stat IV Toradol 15 mg dose. Her R leg is elevated with ice packs. Ortho checks WDL except slight numbness bottom of R foot which has been on-going. Austin bandage clean/dry/intact. She has some edema present in R thigh. VSS. Able to eat general diet and to get up and void in BR. Slava supportive at bedside. Plan to pre-medicate with IV Dilaudid prior to PT session this PM. Verbal update given to Chandrika DODSON. PM discharge uncertain at this point due to pain management.
--- NOTE | 2018-01-31 13:20 | PC.NURSE ---
Lala states she cannot stand it anymore and Wants/needs stronger pain meds. FAX note sent to edmond Singh, who is in OR currently. Meantime yet another dose IV Dilaudid given for breakthru.
--- NOTE | 2018-01-31 15:40 | PT.IPTN ---
Current Diagnoses Rheumatoid arthritis, unspecified (01/30/18) Unilateral primary osteoarthritis, right knee (01/30/18) Fibromyalgia (01/30/18) Presence of unspecified artificial knee joint (01/30/18) Surgery Performed Operation Date: 01/30/18 10:30 Actual Procedures p Total Knee Arthroplasty(Right) - Hao Michaud MD Physical Therapy Treatment Note M2 PT-IP Current Condition Start: 01/30/18 17:08 Freq: NEEDED Status: Active Protocol: Document 01/31/18 09:15 AB (Rec: 01/31/18 11:26 AB [id number]) Physical Therapy Current Condition Current Condition Evaluation Date 01/31/18 Treatment Diagnosis s/p R TKA; difficulty in walking Onset Date 01/30/18 Weight Bearing Status Weight Bearing Status Weight Bear as Tolerated M3 PT-IP Subjective Start: 01/30/18 17:08 Freq: NEEDED Status: Active Protocol: Document 01/31/18 15:40 (Rec: 01/31/18 18:09 [email or web address]) Subjective Physical Therapy Visit Type Type Treatment Note Visit Start Time 15:40 Visit Stop Time 16:11 Total Visit Minutes 31 Number of HL7 INTERFACE DEVELOPER Visits 0 Physical Therapy Visit Comments Patient Comments Pain remains high. 4/10 at rest. 8/10 after any in-room ambulation. Pt agreeable to ambulation and attempting stairs with PT. Therapy Pain Assessment Pain When Pain Assessed At Rest Pain Present Pain Present Pain Reported Location rt knee Intensity 4 Scale Used Numeric (1 - 10) Pain Behaviors Calling Out Facial Grimacing Holding Area Wincing Pain Management Techniques Apply Cold Elevation Timing of Activity with Medications M4 PT-IP Mobility and Gait Start: 01/30/18 17:08 Freq: NEEDED Status: Active Protocol: Document 01/31/18 15:40 (Rec: 01/31/18 18:09 [email or web address]) PT-Bed Mobility Assessment Supine to Sit Supine to Sit Standby Assistance Sit to Supine Sit to Supine Minimal Assistance Scooting Scooting to Edge of Bed Standby Assistance Scooting Up and Down in Bed Standby Assistance PT-Transfer Assessment Sit to and From Stand Sit to and from Stand Contact Guard Assistance Use of Upper Extremities Equipment Transfer Assistive Device Gait Belt Front Wheeled Walker Orthotic/Prosthetic Devices or Brace: No Transfers Transfer Destination Bed Wheelchair Transfer Technique Pt ambulates to w/c using FWW with CGA Transfer Ability Level of Assist Standby Assistance Contact Guard Assistance Comments Mobility Comments Pt performs sit > supine with Michelle to assist lifting/guiding RLE to bed. All other bed mobilities are SBA. Pt reporting high levels of pain and needs Michelle x1 for placing pillows under her RLE to elevate. Sit <> stand is CGA for tactile cues to reach for the bed and remind pt to put RLE out in front. Gait Assessment Gait Gait Assistance Required: Standby Assistance Contact Guard Assist Distance (Feet) 80 Able to Maintain Weight Bearing Status Yes During Gait Assistive Devices Assistive Device Gait Belt Front Wheeled Walker Orthotic/Prosthetic Devices or Brace: No Gait Deviations General Gait Pattern Antalgic Decreased Stride Length Decreased Feet Clearance Step-to Gait Factors Limiting Gait Function Factors Limiting Gait Function Decreased Activity Tolerance Decreased Strength Limited Range of Motion Pain Poor Balance Poor Safety Awareness Comments Gait Comments Pt with antalgic gait. Pt remains CGA with FWW for all ambulation due to poor standing balance and very poor tolerance to weight bearing on post op leg. Ambulates 80 ft with FWW with CGA towards the stairs, then additional 55ft with FWW and CGA to return to room. Stair Climbing Assessment Evaluation Level of Assist On Stairs Maximal Assistance 2 Person Assistance Devices Stair Climbing Assistive Devices Front Wheel Walker Technique/Endurance Stair Climbing Direction Ascend and Descend Stair Climbing Technique Step to Step Number of Steps Climbed 1 Query Text: Stair Climbing Set # Repetitions (reps) 1 Comments Stair Climbing Comments Pt requiring max A x 2 with FWW to to perform 1 platform rising step up. She returns going backward with FWW, max A x2. She complains of sharp increased pain and refuses to attempt stairs again this session. Has significant difficulty bearing weight into RLE for up/down stairs. PT-Balance Assessment Sitting Balance and Reactions Static Sitting Balance Ability Good Dynamic Sitting Balance Ability Good Standing Balance and Reactions Static Standing Balance Ability Fair Dynamic Standing Balance Ability Fair Device Used FWW M5 PT-IP Objective Assessments Start: 01/30/18 17:08 Freq: NEEDED Status: Active Protocol: Document 01/31/18 15:40 (Rec: 01/31/18 18:09 [email or web address]) Orientation Orientation/Cognition Level of Alertness Alert Safety Awareness Decreased Safety Awareness Comments Pt is somewhat impulsive. M6 PT-IP Treatment Start: 01/30/18 17:08 Freq: NEEDED Status: Active Protocol: Document 01/31/18 15:40 (Rec: 01/31/18 18:09 [email or web address]) Physical Therapy Treatment Education Education Provided Precautions Weight Bearing Status Safety M7 PT-IP Assessment and Plan Start: 01/30/18 17:08 Freq: NEEDED Status: Active Protocol: Document 01/31/18 15:40 (Rec: 01/31/18 18:09 [email or web address]) PT Summary Assessment and Plan Potential Rehabilitation Potential Good Summary Impairments Pain ROM Strength Balance Coordination Transfers Gait Activity Tolerance Progress Towards Goals Slow Progress due to Pain Slow Progress due to Activity Tolerance Assessment Summary Pt progressing slowly with ambulation due to c/o high levels of pain. Requiring CGA and FWW for ambulation as she demonstrates poor tolerances to weight bearing on RLE. She is still unable to safely complete up/down 1 stair and currently requiring max A X2. Plan for next PT session is to continue progressing gait and stair training as well as caregiver instruction. Goals Bed Mobility Goal Independent Transfer Goal Standby Assistance Front Wheeled Walker Gait Goal Standby Assistance Front Wheel Walker Gait Distance 200 Other Goals Perform 1 platform steps x2 safely with CGA and FWW. Days to Meet Goals 3 Frequency of Treatment Frequency Of Treatment Twice a Day Treatment Plan Physical Therapy Treatment Plan Bed Mobility Training Transfer Training Gait Training Therapeutic Exercise Balance Retraining Post Op Education Discharge Planning Hot or Cold Pack Neuromuscular Re-ed Coordination Retraining Manual Therapy Recommendations To Nursing Amount of Assist Needed 1 Person Assist Discharge Recommendations PT Discharge Recommendations Home with Assistance Outpatient PT
--- NOTE | 2018-01-31 15:58 | CM.IDA ---
Discharge Planning/Care Management CM Discharge Assessment Start: 01/31/18 15:55 Freq: Status: Active Protocol: Document 01/31/18 15:55 EMMY (Rec: 01/31/18 15:58 EMMY [id number]) Discharge Planning Assessment Assigned Tripoler Idliaarchana Thomas, WEB MERCHANT DPOA/Assigned Designee Name Slava Thurston, spouse Contact Information [phone] Advance Directives? Yes History Provided By Patient Prior Living Arrangements House Household Members spouse Type of transporation used prior to Drives own vehicle admit Independent with ADL's Yes Is patient alert and oriented? Yes Barriers to Discharge No Comment Pt's biggest concern today is the amount of pain she has been in since her surgery. Pt states once they find the right coctail of drugs to manage her pain she will feel more confident about her return home w/her spouse. Discharge Plan Home Transportation Arrangement Spouse Referrals Initiated None needed Additional Comment Pt/spouse state they likely have what they need. Pt had increasing pain while this WEB MERCHANT in the room and requests WEB MERCHANT return tomorrow. Supportive spouse at bedside. RN Edna aware and attempting all pain mangement strategies that are available. Whiteboard Updated in Patient Room with Yes name and ext. # of Tripoler Review Status In Process Please Provide Date Initial DC 01/31/18 Assessment Was Performed Pre-Anesthesia Assessment Start: 01/13/18 13:47 Freq: Status: Complete Protocol: Document 01/13/18 13:47 RICKY (Rec: 01/13/18 14:01 [email or web address])
[2018-01-31 16:09] VITALS: BP 96/58; PULSE 80; RESP 18; TEMP 36.8; O2SAT 98
[2018-01-31] MEDS: HYDROMORPHONE 2 MG TABLET 4 MG PO ×2 (17:36→21:27)
[2018-01-31] MEDS: INFLUENZA VACCINE 0.5 ML SYRINGE IM (17:57)
[2018-01-31] MEDS: diazePAM 5 MG TABLET PO (19:17)
[2018-01-31] MEDS: KETOROLAC 10 MG TABLET PO (20:26)
[2018-01-31 20:30] VITALS: BP 97/57; PULSE 73; RESP 18; TEMP 36.7; O2SAT 97
--- NOTE | 2018-02-01 | DI.US.S_ITS ---
PROCEDURE: US PERIPH VENOUS LOW EXTREM BI INDICATIONS: rule out DVT TECHNIQUE: Real-time imaging, as well as color and pulse Doppler interrogation, were performed of the deep veins of both legs from the inguinal ligament to the popliteal fossa. COMPARISON: None. FINDINGS: The deep veins are normally compressible, and free of intraluminal thrombus. Color and pulse Doppler demonstrate normal phasic intravascular flow. There is normal augmentation response to distal compression maneuver. IMPRESSION: 1. No evidence of deep venous thrombosis in the right or left lower extremity. Dictated by: Hao Rice M.D. on 02/01/2018 at 11:14 Approved by: Hao Rice M.D. on 02/01/2018 at 11:14
[2018-02-01 04:40] VITALS: BP 107/68; PULSE 88; RESP 20; TEMP 36.6; O2SAT 92
[2018-02-01] MEDS: HYDROMORPHONE 2 MG TABLET 4 MG PO ×5 (04:54→21:04)
[2018-02-01] MEDS: KETOROLAC 10 MG TABLET PO ×3 (04:54→21:03)
--- NOTE | 2018-02-01 05:30 | PC.NURSE ---
Addendum entered by Rama Lord R.N. 02/01/18 06:21: Still unable to void but bladder scan indicates only 80cc in bladder so encouraging increased po fluid intake. Still with pain upon ambulation/ movement, but subjectively much improved from prior to pain meds. Assisted back into bed. Remains fuzzy and drowsy. Original Note: Patient slept entire shift until awakened at 0430. States pain at rest upon waking is 3/10 but after getting out of bed and walking to bathroom, during which she continually complained how awful the pain was, she stated pain was 9/10. Seems unsteady and forgetful; needed reminders of what meds she had taken and what meds this RN was gave for pain after receiving Dilaudid and Toradol. Was unable to void but states she just hasn't drank enough water and doesn't have any difficulty urinating so will allow her time to hydrate and try toileting again by 0600 and if still unable to void will bladder scan. Still has some numbness in plantar surface of right foot, otherwise CMS is intact. Had refused to have SCD's on per previous shift. Currently sitting up in chair talking on her cell phone.
[2018-02-01] MEDS: ACYCLOVIR 400 MG TABLET 800 MG PO (06:00)
[2018-02-01 08:40] VITALS: BP 112/67; PULSE 80; RESP 18; TEMP 36.6; O2SAT 96
--- NOTE | 2018-02-01 08:45 | PM.PN.1 ---
Subjective Date Patient Seen: 02/01/18 Time Patient Seen: 08:46 Interval history: Lala continues to note significant pain in her right leg from the thigh distally. She does not note specific or focal calf pain. She notes that she did sleep through the night and is doing much better on oral Dilaudid. She says that the medication is causing a little bit of confusion but is helping significantly with her pain control. She denies shortness of breath chest pain or other symptoms. Exam Vital Signs (past 8 hours): - 02/01/18 04:40 Temperature 98 F Pulse Rate 88 Respiratory Rate 20 Blood Pressure 107/68 Pulse Oximetry 92 Oxygen Delivery Method Room Air Oxygen Flow Rate 0 Narrative Exam Narrative: She is alert and oriented lungs are clear, cor regular rate and rhythm, right leg focal tenderness to palpation along the thigh and right calf with moderate guarding and slight dysesthetic sensation, ft is warm dorsalis pedis 2+ posterior tibial 2+ calf to is soft with global tenderness moderate pain with knee range of motion. Dressing is dry, no erythema Objective Labs Result Diagrams: 01/31/18 05:10 Assessment & Plan Plan: Assessment/Plan Narrative: Significant ongoing pain status post total knee arthroplasty. Unlikely but possible DVT. I am recommending an ultrasound to rule out a DVT. We will continue to mobilize her with physical therapy and continue with oral Dilaudid over the decreased her to 2 mg p.o. every 4-6 hours and only use 4 mg if needed.
[2018-02-01] MEDS: ACETAMINOPHEN 325 MG TABLET 975 MG PO ×3 (09:30→21:05)
[2018-02-01] MEDS: GABAPENTIN 300 MG CAPSULE PO ×3 (09:31→21:03)
[2018-02-01] MEDS: DULOXETINE 20 MG CAPSULE PO (09:31)
[2018-02-01] MEDS: ASPIRIN EC 81 MG TABLET PO ×2 (09:31→21:05)
[2018-02-01] MEDS: DULOXETINE 30 MG CAPSULE PO (09:31)
[2018-02-01] MEDS: valACYclovir 500 MG TABLET PO (09:33)
[2018-02-01] MEDS: SODIUM CHLORIDE 0.9% FLUSH 10 ML IV ×2 (09:33→21:04)
--- NOTE | 2018-02-01 10:05 | PT.IPTN ---
Current Diagnoses Rheumatoid arthritis, unspecified (01/30/18) Unilateral primary osteoarthritis, right knee (01/30/18) Fibromyalgia (01/30/18) Presence of unspecified artificial knee joint (01/30/18) Surgery Performed Operation Date: 01/30/18 10:30 Actual Procedures p Total Knee Arthroplasty(Right) - Hao Michaud MD Physical Therapy Treatment Note M2 PT-IP Current Condition Start: 01/30/18 17:08 Freq: NEEDED Status: Active Protocol: Document 01/31/18 09:15 AB (Rec: 01/31/18 11:26 AB [id number]) Physical Therapy Current Condition Current Condition Evaluation Date 01/31/18 Treatment Diagnosis s/p R TKA; difficulty in walking Onset Date 01/30/18 Weight Bearing Status Weight Bearing Status Weight Bear as Tolerated M3 PT-IP Subjective Start: 01/30/18 17:08 Freq: NEEDED Status: Active Protocol: Document 02/01/18 10:05 AB (Rec: 02/01/18 12:15 AB [id number]) Subjective Physical Therapy Visit Type Type Treatment Note Visit Start Time 10:05 Visit Stop Time 10:41 Total Visit Minutes 36 Number of SPRAYER AUTOMATIC SPRAY MACHINE Visits 0 Physical Therapy Visit Comments Patient Comments c/o too much pain on R thigh and knee Therapy Pain Assessment Pain When Pain Assessed At Rest Pain Present Pain Present Pain Reported Location rt knee Intensity 4 Scale Used increases to 9/10 with movement Description Stabbing Pain Behaviors Calling Out Facial Grimacing Guarding Wincing Pain Management Techniques Apply Cold Re-positioning Timing of Activity with Medications M4 PT-IP Mobility and Gait Start: 01/30/18 17:08 Freq: NEEDED Status: Active Protocol: Document 02/01/18 10:05 AB (Rec: 02/01/18 12:15 AB [id number]) PT-Bed Mobility Assessment Sit to Supine Sit to Supine Minimal Assistance 1 Person Assistance Head of Bed Elevated PT-Transfer Assessment Sit to and From Stand Sit to and from Stand Contact Guard Assistance 1 Person Assistance Equipment Transfer Assistive Device Gait Belt Front Wheeled Walker Orthotic/Prosthetic Devices or Brace: No Transfers Transfer Destination Toilet Transfer Technique pt ambulated to the toilet using FWW CGA Gait Assessment Gait Gait Assistance Required: Contact Guard Assist Distance (Feet) 20 Able to Maintain Weight Bearing Status Yes During Gait Assistive Devices Assistive Device Gait Belt Front Wheeled Walker Orthotic/Prosthetic Devices or Brace: No Gait Deviations General Gait Pattern Antalgic Decreased Stride Length Decreased Feet Clearance Factors Limiting Gait Function Factors Limiting Gait Function Decreased Activity Tolerance Decreased Strength Limited Range of Motion Pain Poor Balance Poor Safety Awareness Comments Gait Comments pt ambulated from the chair to the toilet using FWW CGA with spouse assisting. pt completed sit to stand from the toilet CGA and ambulated to the sink using FWW CGA and was able to maintain standing CGA while completing handwashing. pt ambulated back to bed using FWW CGA and cues. Stair Climbing Assessment Comments Stair Climbing Comments pt stated that she is not ready to do stair M5 PT-IP Objective Assessments Start: 01/30/18 17:08 Freq: NEEDED Status: Active Protocol: Document 01/31/18 15:40 (Rec: 01/31/18 18:09 [id number]) Orientation Orientation/Cognition Level of Alertness Alert Safety Awareness Decreased Safety Awareness Comments Pt is somewhat impulsive. M6 PT-IP Treatment Start: 01/30/18 17:08 Freq: NEEDED Status: Active Protocol: Document 02/01/18 10:05 AB (Rec: 02/01/18 12:15 AB [id number]) Physical Therapy Treatment Exercises Exercises Ankle Pumps Heel Slides Supine Hip Abduction Education Education Provided Precautions Weight Bearing Status Post-Op Packet Safety M7 PT-IP Assessment and Plan Start: 01/30/18 17:08 Freq: NEEDED Status: Active Protocol: Document 02/01/18 10:05 AB (Rec: 02/01/18 12:15 AB [id number]) PT Summary Assessment and Plan Potential Rehabilitation Potential Fair Summary Impairments Pain ROM Strength Balance Cognition Bed Mobility Transfers Gait Activity Tolerance Progress Towards Goals Slow Progress due to Pain Assessment Summary pt continues to c/o increase pain on R knee affecting mobility and activity tolerance. US was ordered by doctor to determine possible DVT. Pt's spouse was able to assist pt with mobility. will continue to assess. Goals Bed Mobility Goal Independent Transfer Goal Standby Assistance Front Wheeled Walker Gait Goal Standby Assistance Front Wheel Walker Gait Distance 200 Other Goals Perform 1 platform steps x2 safely with CGA and FWW. Days to Meet Goals 3 Frequency of Treatment Frequency Of Treatment Twice a Day Treatment Plan Physical Therapy Treatment Plan Bed Mobility Training Transfer Training Gait Training Therapeutic Exercise Balance Retraining Post Op Education Discharge Planning Hot or Cold Pack Neuromuscular Re-ed Coordination Retraining Manual Therapy Recommendations To Nursing Amount of Assist Needed 1 Person Assist Discharge Recommendations PT Discharge Recommendations Home with Assistance Outpatient PT
[2018-02-01] MEDS: SENNOSIDES 8.6 MG TABLET PO (11:18)
[2018-02-01] MEDS: diazePAM 5 MG TABLET PO ×2 (11:21→17:32)
[2018-02-01] MEDS: hydrOXYzine pamoate 25 MG CAPSULE PO ×3 (11:58→21:03)
[2018-02-01] MEDS: BISACODYL 10 MG SUPP PR (11:58)
--- NOTE | 2018-02-01 12:33 | CM.DPC ---
DCP Cont: Per Ortho MD, pt seems to be having better pain management but ordering an Ultrasound to rule out DVT prior to discharge. Per PT, currently recommending safe d/c home with spouse assist and outpt PT. Plan: SW to follow after ultrasound for likely pt d/c home with spouse assist and outpt PT. No SW needs at this time, please refer if indicated. PAT Gutierrez
--- NOTE | 2018-02-01 13:57 | PC.NURSE ---
Lala started the day very whoozy and only able to amb. to outside room 227 until she felt she had to sit down. She was uncoordinated, dropped her coffee cup full of coffee, and was recalling events from last night that did not occur, such as I had a [employer] game and democrat in the room with my sister last night. Therefore, her morning dose of Dilaudid was only 2 mg. At noontime she was given Valium 5 mg. Most recent dose of Dilaudid was 4 mg as Lala was clock watching, bargaining for early dosing, moaning, and stating pain was back up to a 10/10. She also received scheduled Toradol. [place]. of R leg was essentially normal per the report. [place] bandage was removed. Thigh of R leg has some eccymosis and edema present, however, Aquacel drsg. on knee is clean/dry/intact, and lower leg appears normal. Lala is worried she is quite constipated. Last documented BM 01/29. She was given Senna 8.6 mg PO and a Dulcolox suppository. She was able to expel some flatus but so far no BM. Additionally, she felt like she was not emptying her bladder. Lala was able to void after sitting on toilet and using noe-rinse bottle over perineum. However, later, she felt again unable to empty bladder. Bladder scan revealed 417 ml. Lala then became very focused on the fear that I'm really a germ freak and I'm afraid I have a UTI. Straight catheter done using sterile technique. 500 ml obtained. UOP clear, yellow, with no odor.
[2018-02-01 15:37] VITALS: BP 118/61; RESP 82; TEMP 36.6; O2SAT 95
--- NOTE | 2018-02-01 15:38 | PT.IPTN ---
Current Diagnoses Rheumatoid arthritis, unspecified (01/30/18) Unilateral primary osteoarthritis, right knee (01/30/18) Fibromyalgia (01/30/18) Presence of unspecified artificial knee joint (01/30/18) Surgery Performed Operation Date: 01/30/18 10:30 Actual Procedures p Total Knee Arthroplasty(Right) - Hao Michaud MD Physical Therapy Treatment Note M2 PT-IP Current Condition Start: 01/30/18 17:08 Freq: NEEDED Status: Active Protocol: Document 01/31/18 09:15 AB (Rec: 01/31/18 11:26 AB [id number]) Physical Therapy Current Condition Current Condition Evaluation Date 01/31/18 Treatment Diagnosis s/p R TKA; difficulty in walking Onset Date 01/30/18 Weight Bearing Status Weight Bearing Status Weight Bear as Tolerated M3 PT-IP Subjective Start: 01/30/18 17:08 Freq: NEEDED Status: Active Protocol: Document 02/01/18 15:37 AB (Rec: 02/01/18 15:38 AB [id number]) Subjective Physical Therapy Visit Type Type Patient Refusal Notes pt stated that she is in a lot of pain and cannot do PT. stated that she has been getting up to use the toilet and when pain is better later on she will ask the nurse to walk with her.
[2018-02-01] MEDS: HYDROMORPHONE 0.5 MG INJ IV (15:56)
[2018-02-01 20:15] VITALS: BP 113/62; PULSE 94; RESP 20; TEMP 36.7; O2SAT 98
[2018-02-01 22:56] VITALS: BP 114/76; PULSE 96; RESP 14; TEMP 36.8; O2SAT 97
--- NOTE | 2018-02-01 23:24 | PC.NURSE ---
Addendum entered by Rama Lord R.N. 02/02/18 05:06: BP low at 85/56 right arm. Patient is asymptomatic. States pain is 6/10 with movement and 4/10 at rest. Due to low BP did not want to give additional narcotics/muscle relaxant so patient agreeable to taking a.m. dose of Tylenol now. Will recheck BP in 30 minutes and if improved will give additional pain meds. Original Note: Addendum entered by Rama Lord R.N. 02/02/18 01:08: Up to bathroom and did much better than yesterday. Transfer went well without notable wincing, moaning or crying out. Patient even stated it went much better and states pain currently after being up is 6-7/10; medicated with Dilaudid + Vistaril. Original Note: Patient is oriented but still drowsy and falls asleep easily. Breath sounds CTA with RA sat of 97%. HRR. Denies nausea. BT persent and abdomen is soft; had BM earlier today. Denies any dysuria, frequency, urgency or incontinence. Gets up to bathroom with walker and 1 assist. Is able to turn self. Swelling of right leg noted. Still having a great deal of pain especially with any movement. Currently is having 7/10 pain and is aware she can have next pain meds around 0100 and requests to be awakened for them. Has right leg elevated on pillows and foot of bed is also elevated. Ice packs applied for additional comfort. Aquacel dressing to right knee is CDI. Still has some tingling in plantar surface right foot but improved; other CMS is intact. Refuses SCD's. Fall risk score is high and bed alarm is activated.
[2018-02-02] MEDS: hydrOXYzine pamoate 25 MG CAPSULE PO ×2 (00:59→07:55)
[2018-02-02] MEDS: HYDROMORPHONE 2 MG TABLET 4 MG PO ×3 (00:59→11:46)
[2018-02-02 05:00] VITALS: BP 85/56; PULSE 87; RESP 16; TEMP 36.8; O2SAT 90
[2018-02-02] MEDS: ACETAMINOPHEN 325 MG TABLET 975 MG PO ×2 (05:03→13:22)
[2018-02-02 05:45] VITALS: BP 114/67; PULSE 91; RESP 19; O2SAT 96
[2018-02-02 07:18] VITALS: BP 91/53; PULSE 88; RESP 16; TEMP 36.7; O2SAT 91
[2018-02-02] MEDS: DULOXETINE 20 MG CAPSULE PO (08:56)
[2018-02-02] MEDS: ASPIRIN EC 81 MG TABLET PO (08:57)
[2018-02-02] MEDS: valACYclovir 500 MG TABLET PO (08:59)
[2018-02-02] MEDS: GABAPENTIN 300 MG CAPSULE PO (08:59)
[2018-02-02] MEDS: SENNOSIDES 8.6 MG TABLET PO (08:59)
[2018-02-02] MEDS: DULOXETINE 30 MG CAPSULE PO (09:00)
[2018-02-02] MEDS: diazePAM 5 MG TABLET PO (09:07)
[2018-02-02 11:10] VITALS: BP 99/63; PULSE 83; RESP 18; TEMP 36.8; O2SAT 92
--- NOTE | 2018-02-02 12:33 | PT.IPTN ---
Current Diagnoses Rheumatoid arthritis, unspecified (01/30/18) Unilateral primary osteoarthritis, right knee (01/30/18) Fibromyalgia (01/30/18) Presence of unspecified artificial knee joint (01/30/18) Surgery Performed Operation Date: 01/30/18 10:30 Actual Procedures p Total Knee Arthroplasty(Right) - Hao Michaud MD Physical Therapy Treatment Note M2 PT-IP Current Condition Start: 01/30/18 17:08 Freq: NEEDED Status: Active Protocol: Document 01/31/18 09:15 AB (Rec: 01/31/18 11:26 AB [id number]) Physical Therapy Current Condition Current Condition Evaluation Date 01/31/18 Treatment Diagnosis s/p R TKA; difficulty in walking Onset Date 01/30/18 Weight Bearing Status Weight Bearing Status Weight Bear as Tolerated M3 PT-IP Subjective Start: 01/30/18 17:08 Freq: NEEDED Status: Active Protocol: Document 02/02/18 11:20 CLB (Rec: 02/02/18 12:33 CLB [id number]) Subjective Physical Therapy Visit Type Type Treatment Note Visit Start Time 11:20 Visit Stop Time 11:43 Number of TICKET PULLER Visits 1 Physical Therapy Visit Comments Patient Comments Pt up with NEUROSURGERY SPINE PHYSICIAN and was willing to do therapy. Therapy Pain Assessment Pain When Pain Assessed At Rest Pain Present Pain Present Pain Reported Location rt knee Intensity 9 Scale Used Numeric (1 - 10) Pain Behaviors Facial Grimacing Guarding Holding Area Wincing Pain Management Techniques Apply Cold Re-positioning Timing of Activity with Medications M4 PT-IP Mobility and Gait Start: 01/30/18 17:08 Freq: NEEDED Status: Active Protocol: Document 02/02/18 11:20 CLB (Rec: 02/02/18 12:33 CLB [id number]) PT-Transfer Assessment Sit to and From Stand Sit to and from Stand Contact Guard Assistance 1 Person Assistance Equipment Transfer Assistive Device Gait Belt Front Wheeled Walker Orthotic/Prosthetic Devices or Brace: No Transfers Transfer Destination Bed Chair Toilet Transfer Technique Stand Step Pivot Transfer Ability Level of Assist Standby Assistance Contact Guard Assistance Gait Assessment Gait Gait Assistance Required: Standby Assistance Distance (Feet) 20 Able to Maintain Weight Bearing Status Yes During Gait Assistive Devices Assistive Device Gait Belt Front Wheeled Walker Orthotic/Prosthetic Devices or Brace: No Gait Deviations General Gait Pattern Antalgic Decreased Stride Length Decreased Feet Clearance Factors Limiting Gait Function Factors Limiting Gait Function Decreased Activity Tolerance Decreased Strength Limited Range of Motion Pain Comments Gait Comments Pt ambulated from toilet to sink and felt pain was too high to walk in tello. Pt then walked to chair for ther ex then to bed. M5 PT-IP Objective Assessments Start: 01/30/18 17:08 Freq: NEEDED Status: Active Protocol: Document 01/31/18 15:40 (Rec: 01/31/18 18:09 [id number]) Orientation Orientation/Cognition Level of Alertness Alert Safety Awareness Decreased Safety Awareness Comments Pt is somewhat impulsive. M6 PT-IP Treatment Start: 01/30/18 17:08 Freq: NEEDED Status: Active Protocol: Document 02/02/18 11:20 CLB (Rec: 02/02/18 12:33 CLB [id number]) Physical Therapy Treatment Exercises Exercises Ankle Pumps Quad Sets Heel Slides Straight Leg Raises Education Education Provided Precautions Weight Bearing Status Post-Op Packet Safety M7 PT-IP Assessment and Plan Start: 01/30/18 17:08 Freq: NEEDED Status: Active Protocol: Document 02/02/18 11:20 CLB (Rec: 02/02/18 12:33 CLB [id number]) PT Summary Assessment and Plan Summary Impairments Pain ROM Strength Balance Cognition Bed Mobility Transfers Gait Activity Tolerance Progress Towards Goals Slow Progress due to Pain Assessment Summary Pt c/o pain in R knee and is unable to tolerate ambulation this session. Pt was SBA for sit-supine using LLE hooked under RLE to get leg into bed. Goals Bed Mobility Goal Independent Transfer Goal Standby Assistance Front Wheeled Walker Gait Goal Standby Assistance Front Wheel Walker Gait Distance 200 Other Goals Perform 1 platform steps x2 safely with CGA and FWW. Days to Meet Goals 3 Frequency of Treatment Frequency Of Treatment Twice a Day Treatment Plan Physical Therapy Treatment Plan Bed Mobility Training Transfer Training Gait Training Therapeutic Exercise Balance Retraining Post Op Education Discharge Planning Hot or Cold Pack Neuromuscular Re-ed Coordination Retraining Manual Therapy Recommendations To Nursing Amount of Assist Needed 1 Person Assist Discharge Recommendations PT Discharge Recommendations Home with Assistance Outpatient PT
--- NOTE | 2018-02-02 13:35 | P.DS_ITS ---
History of Present Illness Chief complaint: [id number] RIGHT TOTAL KNEE ARTHROPLASTY Discharge Providers Date of admission: 01/30/18 09:06 Primary care physician: MILE Welch Consults: 01/30/18 14:14 Consult to Discharge Planning Routine Comment: Consult to Physical Therapy Evaluate & Treat Comment: Physician Instructions: postop TKA protocol Consult to Respiratory Therapy Evaluate & Treat Comment: Physician Instructions: Evaluate and treat Discharge provider: Renae Bateman MD Discharge Date: 02/02/18 Summary Discharge Diagnosis: posttraumatic right knee oa Hospital Course: Patient underwent a right total knee arthroplasty. She had substantial problems with postoperative pain management. Eventually we were able to get her mobilized with a combination of oral Dilaudid, intermittent Vistaril, ibuprofen or other anti-inflammatories and Tylenol. She was also taking Valium for muscle spasms. An ultrasound was done to rule out a DVT. It was negative. She was afebrile throughout her hospital course. Her postop x- rays showed acceptable alignment. The patient's clinical examination showed pain along her thigh and tibia but she was neurologically and vascularly intact distally. She was using a substantial amount of ice. Time Spent with Patient Greater than 30 minutes Exam Vital Signs (past 8 hours): - 02/02/18 05:45 02/02/18 07:18 02/02/18 11:10 Temperature 98.1 F 98.2 F Pulse Rate 91 H 88 83 Respiratory Rate 19 16 18 Blood Pressure 114/67 91/53 L 99/63 Pulse Oximetry 96 91 92 Oxygen Delivery Method Room Air Oxygen Flow Rate 0 Narrative Exam Narrative: Her wound was benign. She had moderate pain with range of motion in her right knee. Her dressing was intact. She had some tenderness in her thigh but no palpable mass or cord. She was neurovascularly intact distally except for some minimal foot numbness. Objective Labs Result Diagrams: 01/31/18 05:10 Discharge Plan Discharge Plan Patient Disposition: Home Discharge comment: see pt prior to dc Discharge Med Rec/Prescriptions Prescriptions: New hydromorphone 2 mg Tablet 2 mg PO Q4HR PRN (Reason: Pain, Severe (7-10)) Qty: 30 RF: 0 ondansetron 4 mg Tablet,Disintegrating 4 mg PO Q4HR PRN (Reason: Nausea) Qty: 20 RF: 1 diazepam 5 mg Tablet 5 mg PO Q6HR PRN (Reason: Anxiety) Qty: 20 RF: 0 aspirin 81 mg Tablet,Delayed Release (Dr/Ec) 81 mg PO BID Qty: 60 RF: 0 hydroxyzine pamoate 25 mg Capsule 25 mg PO Q4HR PRN (Reason: Nausea) Qty: 30 RF: 1 Continue duloxetine 20 mg capsule,delayed release(DR/EC) 20 mg PO QDAY Qty: 90 RF: 3 duloxetine [Cymbalta] 30 mg capsule,delayed release(DR/EC) 30 mg PO QDAY Qty: 90 RF: 3 eletriptan 40 mg tablet 40 mg PO BID PRN (Reason: migraine headache) Qty: 30 RF: 11 estradiol [Estrace] 0.01 % (0.1 mg/gram) cream 0.01 % Vaginal HS Qty: 42.5 RF: 11 gabapentin [Neurontin] 300 mg capsule 300 mg PO TID Qty: 180 RF: 3 lisinopril-hydrochlorothiazide 20-12.5 mg tablet 1 tab PO Q DAY Qty: 90 RF: 3 fluocinonide-emollient [Fluocinonide-E] 0.05 % cream 1 sera Topical BID Qty: 15 RF: 5 cyclobenzaprine 10 MG tablet 10 mg PO BIDP PRN (Reason: Muscle Spasm) RF: 0 fluocinonide 0.1 % cream 1 sera TP BID PRN (Reason: Eczema) RF: 0 polyethylene glycol 3350 17 gram/dose Powder 1 cap PO DAILY RF: 0 acyclovir 800 mg Tablet 800 mg PO 5XD RF: 0 valacyclovir 1 gram tablet 500 mg PO QDAY RF: 0 aspirin [Aspir-81] 81 mg Tablet,Delayed Release (Dr/Ec) 81 mg PO DAILY RF: 0 tramadol 50 mg Tablet 50 mg PO Q4-6H PRN (Reason: pain) RF: 0 ondansetron [Zofran ODT] 4 mg tablet,disintegrating 4 mg Sublingual Q6HP PRN (Reason: nausea) Qty: 20 RF: 11 Discontinued oxycodone-acetaminophen 5-325 mg tablet 1 tab PO Q4-6H PRN (Reason: pain) Qty: 60 RF: 0 Follow up/Referrals: Hao Michaud MD [Physician] - Provider Discharge Instructions Diet: Diet as Tolerated Activity: out of bed multiple times a day, walk around the house Cold/Heat Therapy: ICE Skin/Wound/Dressing Care Report to your healthcare provider any signs of infection, such as:: chills, fever, night sweats, increased pain and unusual drainage Dressing: KEEP DRESSING ON Visit Report/Discharge Packet Instructions: DI for Knee Replacement Discharge Data Primary Care Provider: April Belcher Attending Provider: Hao Michaud Admit Date/Time: 01/30/18 09:06
--- NOTE | 2018-02-02 14:36 | PT.IPTN ---
Current Diagnoses Rheumatoid arthritis, unspecified (01/30/18) Unilateral primary osteoarthritis, right knee (01/30/18) Fibromyalgia (01/30/18) Presence of unspecified artificial knee joint (01/30/18) Surgery Performed Operation Date: 01/30/18 10:30 Actual Procedures p Total Knee Arthroplasty(Right) - Hao Michaud MD Physical Therapy Treatment Note M2 PT-IP Current Condition Start: 01/30/18 17:08 Freq: NEEDED Status: Active Protocol: Document 01/31/18 09:15 AB (Rec: 01/31/18 11:26 AB [id number]) Physical Therapy Current Condition Current Condition Evaluation Date 01/31/18 Treatment Diagnosis s/p R TKA; difficulty in walking Onset Date 01/30/18 Weight Bearing Status Weight Bearing Status Weight Bear as Tolerated M3 PT-IP Subjective Start: 01/30/18 17:08 Freq: NEEDED Status: Active Protocol: Document 02/02/18 13:15 CLB (Rec: 02/02/18 14:35 CLB [id number]) Subjective Physical Therapy Visit Type Type Treatment Note Visit Start Time 13:15 Visit Stop Time 13:23 Total Visit Minutes 23 Number of CARD BRUSHER Visits 2 Physical Therapy Visit Comments Patient Comments I want to go home. Patient Goals to go home Therapy Pain Assessment Pain When Pain Assessed During Mobility Pain Present Pain Present Pain Reported M4 PT-IP Mobility and Gait Start: 01/30/18 17:08 Freq: NEEDED Status: Active Protocol: Document 02/02/18 13:15 CLB (Rec: 02/02/18 14:35 CLB [id number]) PT-Bed Mobility Assessment Sit to Supine Sit to Supine Standby Assistance Scooting Scooting Up and Down in Bed Standby Assistance PT-Transfer Assessment Sit to and From Stand Sit to and from Stand Standby Assistance 1 Person Assistance Equipment Transfer Assistive Device Gait Belt Front Wheeled Walker Orthotic/Prosthetic Devices or Brace: No Transfers Transfer Destination Bed Transfer Technique Stand Step Pivot Transfer Ability Level of Assist Standby Assistance 1 Person Assistance Comments Mobility Comments Pt is SBA for all mobility and transfers. Gait Assessment Gait Gait Assistance Required: Standby Assistance Distance (Feet) 20 Able to Maintain Weight Bearing Status Yes During Gait Assistive Devices Assistive Device Gait Belt Front Wheeled Walker Orthotic/Prosthetic Devices or Brace: No Gait Deviations General Gait Pattern Antalgic Decreased Stride Length Decreased Feet Clearance Factors Limiting Gait Function Factors Limiting Gait Function Decreased Activity Tolerance Decreased Strength Limited Range of Motion Pain Comments Gait Comments Pt continues to state high pain in R knee with WB. Pt is able to ambulate SBA with good safety awareness. Stair Climbing Assessment Comments Stair Climbing Comments Pt respectfully refused stair training multiple times today. Pt states pain is too high to trial stairs. will borrow wheelchair from hospital to take pt up two platform stairs to get into house. Pt has no steps once in house. M5 PT-IP Objective Assessments Start: 01/30/18 17:08 Freq: NEEDED Status: Active Protocol: Document 01/31/18 15:40 (Rec: 01/31/18 18:09 [id number]) Orientation Orientation/Cognition Level of Alertness Alert Safety Awareness Decreased Safety Awareness Comments Pt is somewhat impulsive. M6 PT-IP Treatment Start: 01/30/18 17:08 Freq: NEEDED Status: Active Protocol: Document 02/02/18 13:15 CLB (Rec: 02/02/18 14:35 CLB [id number]) Physical Therapy Treatment Exercises Exercises Ankle Pumps Quad Sets Heel Slides Other Treatments Other Treatment Performed AA SLR M7 PT-IP Assessment and Plan Start: 01/30/18 17:08 Freq: NEEDED Status: Active Protocol: Document 02/02/18 13:15 CLB (Rec: 02/02/18 14:35 CLB [id number]) PT Summary Assessment and Plan Summary Impairments Pain ROM Strength Balance Cognition Bed Mobility Transfers Gait Activity Tolerance Progress Towards Goals Slow Progress due to Pain Assessment Summary Pt wanting to go home was able to ambulate ~20ft in room and perform ther ex. Pt respectfully refused stair training multiple times today and will take pt up stairs with WC. Pt and are comfortable with this plan. Goals Bed Mobility Goal Independent Transfer Goal Standby Assistance Front Wheeled Walker Gait Goal Standby Assistance Front Wheel Walker Gait Distance 200 Other Goals Perform 1 platform steps x2 safely with CGA and FWW. Days to Meet Goals 3 Frequency of Treatment Frequency Of Treatment Twice a Day Treatment Plan Physical Therapy Treatment Plan Bed Mobility Training Transfer Training Gait Training Therapeutic Exercise Balance Retraining Post Op Education Discharge Planning Hot or Cold Pack Neuromuscular Re-ed Coordination Retraining Manual Therapy Recommendations To Nursing Amount of Assist Needed 1 Person Assist Discharge Recommendations PT Discharge Recommendations Home with Assistance Outpatient PT
== END 2018-02-02 15:04 | disposition home or self-care (01) | DRG 470 ==
PROVIDERS: Admitting Provider Orthopaedic Surgery; PCP Nurse Practitioner Family; Visit Provider Orthopaedic Surgery
PROC: 0SRC0JZ Replacement of Right Knee Joint with Synthetic Substitute, Open Approach (ICD-10-PCS; CPT 27447; principal; 2018-01-30 10:30)
DX: M17.11 Unilateral primary osteoarthritis, right knee (principal); I10 Essential (primary) hypertension; E66.9 Obesity, unspecified; Z68.32 Body mass index [BMI] 32.0-32.9, adult; M25.861 Other specified joint disorders, right knee; F41.9 Anxiety disorder, unspecified; M06.9 Rheumatoid arthritis, unspecified; M79.7 Fibromyalgia; M79.661 Pain in right lower leg
CPT/HCPCS: 36415; 73560; 85014; 85018; 90471; 90656; 93970; 94760; 97110; 97116; 97162; 97530; C1776; C9290; J0690; J1100; J1170; J1885; J2250; J2405; J2704; J3010; Q2038

== ENCOUNTER 2018-02-09 12:17 | Emergency (ER) | payer OTHER, SELFPAY ==
[2018-01-30 09:28] VITALS: BMI 32.5
[2018-02-09 12:36] VITALS: BP 119/83; PULSE 95; RESP 18; TEMP 36.7; O2SAT 95; BMI 32.8
--- NOTE | 2018-02-09 13:11 | ED_ITS ---
HPI - Skin/Abscess/Foreign Bdy <Marilin Bustamante, COUNTRY DIRECTOR-BC - Last Filed: 02/09/18 13:32> General Chief complaint: Skin/Abscess/Foreign Body Stated complaint: RASH ON BACK Time Seen by Provider: 02/09/18 12:43 Source: patient and family Mode of arrival: ambulatory Limitations: no limitations History of Present Illness HPI narrative: Patient presents with chief complaint of rash on her back. She states that she was recently in the hospital for a knee replacement. She states she started having itching and rash on her back during her hospitalization at this point time. She states she has recurrent shingles. She states she was getting acyclovir as valacyclovir. She is concerned that her rash is spreading up around her back and around her abdomen. She denies any fevers, chills, nausea vomiting or diarrhea. She denies pain but she states presents with her shingles. She states that she has been using a combination of chlorhexidine as well as her antiviral medications. She denies any new conditioners, creams, lotions she improves or any skin exposures. However her states she has very sensitive skin. Related Data Home Medications Medication Instructions Recorded Confirmed cyclobenzaprine 10 mg PO BIDP PRN 01/13/18 01/30/18 fluocinonide 1 sera TP BID PRN 01/13/18 01/31/18 polyethylene glycol 3350 1 cap PO DAILY 01/13/18 01/30/18 acyclovir 800 mg PO 5XD 01/30/18 01/30/18 aspirin [Aspir-81] 81 mg PO DAILY 01/30/18 01/30/18 tramadol 50 mg PO Q4-6H PRN 01/30/18 01/30/18 valacyclovir 500 mg PO QDAY 01/30/18 01/30/18 Previous Rx's Medication Instructions Recorded fluocinonide-emollient 1 sera TOPICAL BID #15 gm 01/31/17 [Fluocinonide-E] duloxetine 20 mg capsule,delayed 20 mg PO QDAY #90 cap 10/16/17 release duloxetine 30 mg capsule,delayed 30 mg PO QDAY #90 cap 10/16/17 release eletriptan 40 mg tablet 40 mg PO BID PRN #30 tab 10/16/17 estradiol 0.01% (0.1 mg/gram) 0.01 % VAGINAL HS #42.5 gram 10/16/17 vaginal cream gabapentin 300 mg capsule 300 mg PO TID #180 cap 10/16/17 lisinopril 20 1 tab PO Q DAY #90 tab 10/16/17 mg-hydrochlorothiazide 12.5 mg tablet oxycodone-acetaminophen 5 mg-325 1 tab PO Q4-6H PRN #60 tab 10/16/17 mg tablet diazepam 5 mg PO Q6HR PRN #20 tab 02/02/18 hydromorphone 2 mg PO Q4HR PRN #30 tab 02/02/18 ondansetron 4 mg PO Q4HR PRN #20 tab 02/02/18 ondansetron [Zofran ODT] 4 mg SUBLINGUAL Q6HP PRN #20 odt 02/02/18 ranitidine HCl 150 mg PO DAILY #14 tab 02/09/18 triamcinolone acetonide 1 applictn TOP TID 14 Days #30 gram 02/09/18 Allergies Allergy/AdvReac Type Severity Reaction Status Date / Time NSAIDS (Non-Steroidal AdvReac Intermediate GI feels Verified 02/09/18 12:42 Anti-Inflamma like I've been punched in the stomach Review of Systems <ELMIRA Davis - Last Filed: 02/09/18 13:32> Review of Systems GENERAL: Denies chills, fatigue, malaise, fever, sweats. HEENT: Denies sinus pain, ear pain, sore throat, difficulty swallowing, dizziness. RESPIRATORY: Denies dyspnea, cough, wheezing, hemoptysis, sputum. CARDIOVASCULAR: Denies chest pain, palpitations, orthopnea, edema, GASTROINTESTINAL: Denies nausea, vomiting, abdominal pain, diarrhea, constipation, melena. : Denies dysuria, frequency, incontinence, hematuria, urinary retention. MUSCULOSKELETAL: denies weakness, joint pain, or bony pain SKIN: See HPI NEUROLOGIC: Denies weakness, headache, numbness, change in speech, confusion, seizures, incoordination. PSYCHIATRIC: No concerning psychosocial issues. 12 point review of systems is negative except for those stated above Exam <ELMIRA Davis - Last Filed: 02/09/18 13:32> Narrative Exam Narrative: GENERAL: This is a well-nourished, well-developed patient, sitting on stretcher. HEAD: Atraumatic. Normocephalic. No temporal or scalp tenderness. EYES: Pupils equal round and reactive. Extraocular motions intact. No scleral icterus. No injection or drainage. ENT: Nose without bleeding, purulent drainage or septal hematoma. Throat without erythema, tonsillar hypertrophy or exudate. Uvula midline. Airway patent. NECK: Trachea midline. No JVD or lymphadenopathy. Supple, nontender, no meningeal signs. CARDIOVASCULAR: Regular rate and rhythm without murmurs, gallops, or rubs. RESPIRATORY: No increased respiratory effort. No cough on exam. EXTREMITIES: practice assistant right knee is clean dry and intact. No spreading erythema, no significant swelling noted. BACK: Nontender without deformity or crepitance. No flank tenderness. NEURO: AOx3. SKIN: Macular papular rash diffusely spread over back. No crusting or vesicular rash. No spreading erythema. Spread over her entire back bilaterally. Surgical dressing on right knee is clean dry intact with no warmth or spreading erythema. Initial Vital Signs Initial Vital Signs: Vital Signs Temperature 98.0 F 02/09/18 12:36 Pulse Rate 95 H 02/09/18 12:36 Respiratory Rate 18 02/09/18 12:36 Blood Pressure 119/83 02/09/18 12:36 Pulse Oximetry 95 02/09/18 12:36 <Efren Tavarez DO - Last Filed: 02/09/18 17:07> Initial Vital Signs Initial Vital Signs: Vital Signs Temperature 98.0 F 02/09/18 12:36 Pulse Rate 95 H 02/09/18 12:36 Respiratory Rate 18 02/09/18 12:36 Blood Pressure 119/83 02/09/18 12:36 Pulse Oximetry 95 02/09/18 12:36 Course <ELMIRA Davis - Last Filed: 02/09/18 13:32> Orders Ordered: ED Orders 02/09/18 13:05 Wound Culture and Gram Stain Stat Vital Signs - 8 hr 02/09/18 12:36 Temperature 98.0 F Pulse Rate 95 H Respiratory Rate 18 Blood Pressure 119/83 Pulse Oximetry 95 <Efren Tavarez DO - Last Filed: 02/09/18 17:07> Orders Ordered: ED Orders 02/09/18 13:05 Wound Culture and Gram Stain Stat Vital Signs - 8 hr 02/09/18 12:36 Temperature 98.0 F Pulse Rate 95 H Respiratory Rate 18 Blood Pressure 119/83 Pulse Oximetry 95 MDM - Skin/Abscess/Foreign Bdy <Marilin HassanVIRAL bermudez-BC - Last Filed: 02/09/18 13:32> Differential Diagnosis Likely urticaria, allergic reaction to drug, eczema, insect bites and contact dermatitis MDM Narrative Medical decision making narrative: Patient presents with chief complaint of rash on her back present for over week. She is hemodynamically stable and nontoxic appearing. She felt the rash was shingles and was taking copious amounts of antivirals. Her exam and presentation is not consistent with shingles. She did have some relief of itching and symptoms with over-the- counter hydrocortisone. Her exam is consistent with a contact dermatitis, so prescribed a stronger steroid cream. She is taking an H1 eunice, so I added an H2 eunice for itching. I discussed not combining Hydroxyzine and Benadryl. Discussed follow up with primary care provider. Cultures were taken per her request though I did not see any evidence of viral or bacterial etiology. Patient no questions or concerns upon discharge. Discharge Plan Departure Patient Disposition: Home Clinical Impression: Rash Discharge Date/Time: 02/09/18 13:23 Interventions: ED Discharge Assessment Last Done: 02/09/18 13:23 Instructions: DI for Contact Dermatitis, DI for Rash Activity Restrictions/Additional Instructions: I am starting you on a stronger steroid cream for the rash on her back. You can continue taking your Vistaril. I am also adding ranitidine once a day. Please do not use any other creams or lotions in addition to the steroid cream, other than a moisturizing cream. Monitor for fever, vomiting, diarrhea or any other acute concerns. We are sending off a bacterial and viral culture to see if anything develops. These results take 48-72 hours. Please follow-up with your primary care provider. Prescriptions: New triamcinolone acetonide 0.1 % cream 1 applictn TOP TID 14 Days Qty: 30 RF: 0 ranitidine HCl 150 mg tablet 150 mg PO DAILY Qty: 14 RF: 0 No Action duloxetine 20 mg capsule,delayed release(DR/EC) 20 mg PO QDAY Qty: 90 RF: 3 duloxetine [Cymbalta] 30 mg capsule,delayed release(DR/EC) 30 mg PO QDAY Qty: 90 RF: 3 eletriptan 40 mg tablet 40 mg PO BID PRN (Reason: migraine headache) Qty: 30 RF: 11 estradiol [Estrace] 0.01 % (0.1 mg/gram) cream 0.01 % Vaginal HS Qty: 42.5 RF: 11 gabapentin [Neurontin] 300 mg capsule 300 mg PO TID Qty: 180 RF: 3 lisinopril-hydrochlorothiazide 20-12.5 mg tablet 1 tab PO Q DAY Qty: 90 RF: 3 oxycodone-acetaminophen 5-325 mg tablet 1 tab PO Q4-6H PRN (Reason: pain) Qty: 60 RF: 0 fluocinonide-emollient [Fluocinonide-E] 0.05 % cream 1 sera Topical BID Qty: 15 RF: 5 cyclobenzaprine 10 MG tablet 10 mg PO BIDP PRN (Reason: Muscle Spasm) RF: 0 fluocinonide 0.1 % cream 1 sera TP BID PRN (Reason: Eczema) RF: 0 polyethylene glycol 3350 17 gram/dose Powder 1 cap PO DAILY RF: 0 acyclovir 800 mg Tablet 800 mg PO 5XD RF: 0 valacyclovir 1 gram tablet 500 mg PO QDAY RF: 0 aspirin [Aspir-81] 81 mg Tablet,Delayed Release (Dr/Ec) 81 mg PO DAILY RF: 0 tramadol 50 mg Tablet 50 mg PO Q4-6H PRN (Reason: pain) RF: 0 hydromorphone 2 mg Tablet 2 mg PO Q4HR PRN (Reason: Pain, Severe (7-10)) Qty: 30 RF: 0 ondansetron 4 mg Tablet,Disintegrating 4 mg PO Q4HR PRN (Reason: Nausea) Qty: 20 RF: 1 diazepam 5 mg Tablet 5 mg PO Q6HR PRN (Reason: Anxiety) Qty: 20 RF: 0 ondansetron [Zofran ODT] 4 mg tablet,disintegrating 4 mg Sublingual Q6HP PRN (Reason: nausea) Qty: 20 RF: 11 Referrals: April Belcher ARNP [Primary Care Provider] - Stand Alone Forms: Against Medical Advice <Efren Tavarez DO - Last Filed: 02/09/18 17:07> Cosign ED Attending Cosignature Attestation: I was immediately available in the department for consultation. Documentation has been reviewed. I agree with assessment and plan.
== END 2018-02-09 13:23 | disposition home or self-care (01) ==
PROVIDERS: Emergency Provider Nurse Practitioner Family; PCP Nurse Practitioner Family
DX: R21 Rash and other nonspecific skin eruption (principal)
CPT/HCPCS: 87070; 87205; 87252; 99282; 99283

== ENCOUNTER 2018-03-12 14:48 | Day surgery (SDC) | payer OTHER, SELFPAY ==
[2018-01-30 09:28] VITALS: BMI 32.5
[2018-03-11 08:51] VITALS: BMI 32.5
[2018-03-12] VITALS (7 sets, daily range): BP systolic 130–160; BP diastolic 69–94; PULSE 73–88; RESP 9–20; TEMP 36.2–36.6; O2SAT 96–100; BMI 32.5
--- NOTE | 2018-03-12 17:07 | PM.PREOP ---
Pre-operative Note Interval Note Pre-op Check: Yes History & Physical Reviewed by Physician and Yes Exam Performed Changes: No
--- NOTE | 2018-03-12 17:14 | PM.OP.1 ---
Operative Date/Time/Diagnoses Date of procedure: 03/12/18 Time of procedure: 18:01 Pre-op diagnosis: Stiffness after right total knee arthroplasty Post-op diagnosis: same Procedure & Clinicians Procedure: Manipulation under anesthesia of right knee Same procedure as scheduled: Yes Indications: The patient presents today for manipulation under anesthesia of her right total knee after failure to achieve adequate motion at 6 weeks. The nature of the procedure including the risks and benefits, alternatives, postoperative course and expected outcome were discussed and all questions answered. Consent was obtained. Operative site confirmed and marked. Surgeon: Hao Michaud Click Yes if Unassisted: Yes Anesthesia Type: General and Local Operative Notes Findings: Pre manipulation range of motion: 15-95 Post manipulation range of motion: 0-130 and 122 with gravity alone. Closure Type: not applicable Specimen(s): none sent Blood products transfused: none Procedure in detail: The patient was taken to the operative suite and placed under general anesthesia. Pre manipulation motion was measured. The knee was then injected with a combination of 10 cc of 1% lidocaine, 10 cc of 0.5% Marcaine with epinephrine and 10 mg of dexamethasone. The knee was then manipulated in both extension and flexion. The patella was also manipulated. Lysis of adhesions was felt during the procedure. The patient tolerated procedure well and was returned recovery room in good condition. Complications: none Condition: stable Disposition: same day surgery Plan for aftercare: The patient will start 5 days per week physical therapy over the next 2 weeks.
[2018-03-12] MEDS: LACTATED RINGERS 1,000 ML 42 ML IV (17:20)
[2018-03-12] MEDS: BUPIVACAINE 0.5% (PF) VIAL 30 ML INJ (17:33)
[2018-03-12] MEDS: LIDOCAINE 1% W/EPI INJ 20 ML INJ (17:33)
[2018-03-12] MEDS: DEXAMETHASONE 10 MG/ML VIAL 8 MG IV (17:33)
--- NOTE | 2018-03-12 18:00 | SUR.PHASEI ---
Patient A&O, talking, denied pain on admit, states that she is starting to feel it in the right knee. Spoke with Dr. Michaud.
[2018-03-12] MEDS: HYDROMORPHONE 2 MG INJ 0.5 MG IV ×3 (18:04→18:33)
[2018-03-12] MEDS: HYDROMORPHONE 2 MG TABLET PO (18:33)
--- NOTE | 2018-03-12 18:39 | SUR.PHASEI ---
1830 Resting, no nausea, pain level stable; talked w/anesthesia regarding oral med. No drainage, moving well.
--- NOTE | 2018-03-12 18:46 | SUR.PHASEI ---
Stable and pleasant throughout pacu stay. Report given to [facility] RN, started to c/o itching on back; declines benadryl stating that she wants to wait and take her own med in the car.
--- NOTE | 2018-03-12 19:55 | SUR.PHASEII ---
Late note: Very anxious about pain control and mobilization post op. Pain described as spasm like. Spent a fair amount of time talking with patient and her about listening to the body versus brain, adding thought to all activity, and the role of anxiety increasing pain which was identified as being seen with the patient. There was a c/o of itching on arrival in [facility] and without med ordered for such, offer to get order from MD was declined. Patient stating she has hydroxyzine at home and that might benefit her both in regards to c/o itching and spasm pain. Patient desired discharge home and meeting d/c criteria was then d/c in the care of her .
== END 2018-03-12 19:05 | disposition home or self-care (01) ==
PROVIDERS: PCP Student in an Organized Health Care Education/Training Program; Visit Provider Orthopaedic Surgery
PROC: (CPT 27570; principal; 2018-03-12 16:45)
DX: T84.82XA Fibrosis due to internal orthopedic prosthetic devices, implants and grafts, initial encounter (principal); Z96.651 Presence of right artificial knee joint; E66.9 Obesity, unspecified; I10 Essential (primary) hypertension
CPT/HCPCS: 27570; J1100; J1170; J2405; J2704; J3010

== ENCOUNTER 2018-08-11 11:56 | Emergency (ER) | payer OTHER, SELFPAY ==
[2018-01-30 09:28] VITALS: BMI 32.5
[2018-08-11 12:09] VITALS: BP 145/96; PULSE 90; RESP 16; TEMP 36.9; O2SAT 98; BMI 34.2
[2018-08-11 12:31] LABS: Add Manual Diff / Slide Review NO; Basophils Absolute Auto 0 /uL (0-100); Basophils Percent Auto 0.3 % (0-2); Eosinophils Absolute Auto 100 /uL (0-450); Eosinophils Percent Auto 0.9 % (2-4); Hematocrit 42.9 % (36-46); Hemoglobin 14.2 g/dL (12.0-16.0); Lymphocytes Absolute Auto 1500 /uL (1100-4500); Lymphocytes Percent Auto 19.4 % (25-40); Mean Corpuscular HGB Conc 33.2 % (30-36); Mean Corpuscular Hemoglobin 29.6 PG (26-34); Mean Corpuscular Volume 89.2 fL (80-100); Monocytes Absolute Auto 400 /uL (0-900); Monocytes Percent Auto 5.5 % (3-14); Neutrophils Absolute Auto 5600 /uL (1500-7000); Neutrophils Percent Auto 73.9 % (50-75); Platelet Count 243 X10^3/uL (150-400); Red Blood Cell Count 4.81 X10^6/uL (4.0-5.2); Red Cell Distribution Width 13.1 % (11.6-14.8); White Blood Cell Count 7.5 X10^3/uL (4.5-11.0)
[2018-08-11 12:40] LABS: BUN Creatinine Ratio 14.3 (6-22); Blood Urea Nitrogen 10 mg/dL (7-17); Calcium 9.2 mg/dL (8.4-10.2); Carbon Dioxide 25 mmol/L (22-32); Chloride 105 mmol/L (98-107); Creatine Kinase 39 U/L (30-135); Estimated Glomerular Filt Rate > 60.0 mL/min (>60); Glucose 89 mg/dL (70-100); HEMOLYSIS < 15 (0-50); Magnesium 1.8 mg/dL (1.6-2.3); Potassium 3.9 mmol/L (3.4-5.1); Sodium 139 mmol/L (137-145)
[2018-08-11 12:50] LABS: B Type Natriuretic Peptide < 100 (<100)
[2018-08-11 12:51] LABS: Troponin I < 0.012 ng/mL (0.01-0.034)
[2018-08-11 12:54] LABS: Procalcitonin < 0.05 ng/mL (<0.5)
[2018-08-11 13:00] LABS: Lactate (Lactic Acid) 0.8 mmol/L (0.7-2.1)
[2018-08-11] MEDS: ACETAMINOPHEN 325 MG TABLET 650 MG PO (13:28)
[2018-08-11 13:30] VITALS: BP 127/68; PULSE 74; RESP 14; O2SAT 98
--- NOTE | 2018-08-11 14:21 | DI.RAD.S_ITS ---
PROCEDURE: XR CHEST 2V INDICATIONS: cough, chest pain TECHNIQUE: 2 views of the chest were acquired. COMPARISON: [facility], , CHEST 2 VIEW, 12/05/2016, 7:38. FINDINGS: Surgical changes and devices: None. Lungs and pleura: Lungs are clear. No pleural effusions or pneumothorax. Mediastinum: Mediastinal contours are normal. Heart size is normal. Bones and chest wall: No suspicious bony abnormalities. Soft tissues appear unremarkable. IMPRESSION: No acute cardiopulmonary pathology. Dictated by: Johann Flores M.D. on 08/11/2018 at 14:47 Approved by: Johann Flores M.D. on 08/11/2018 at 14:47
[2018-08-11] MEDS: MAG HYDROX/ALUMINUM/SIMETH SUS 20 ML, LIDOCAINE VISCOUS 2% 15 ML PO (15:02)
[2018-08-11 15:30] VITALS: BP 150/77; PULSE 83; RESP 16; O2SAT 98
[2018-08-11 16:00] VITALS: BP 147/83; PULSE 83; RESP 15; O2SAT 97
[2018-08-11 16:00] LABS: Creatine Kinase 30 U/L (30-135)
[2018-08-11] MEDS: PANTOPRAZOLE 40 MG VIAL IV (16:09)
[2018-08-11 16:13] LABS: Troponin I < 0.012 ng/mL (0.01-0.034)
[2018-08-11] MEDS: SUCRALFATE 1 GM/10 ML ORAL SUSP PO (17:02)
--- NOTE | 2018-08-11 17:19 | DI.CT.S_ITS ---
PROCEDURE: CT CHEST WO CON INDICATIONS: chest pain s/p egd TECHNIQUE: Noncontrast 5 mm thick sections acquired from the pulmonary apices to the posterior costophrenic angles. 7 mm thick coronal and sagittal MIP reformats were then acquired. For radiation dose reduction, the following was used: automated exposure control, adjustment of mA and/or kV according to patient size. COMPARISON: [facility], CR, XR CHEST 2V, 08/11/2018, 14:28. FINDINGS: Image quality: Excellent. Lungs and pleura: No acute air space opacities. No pleural effusions or pneumothorax. Central and peripheral airways are patent and normal in caliber. Mediastinum: Heart size is normal. No pericardial effusion. No mediastinal adenopathy by size criteria. Thoracic aorta and central pulmonary arteries are normal in size. Esophagus is normal in caliber. Small hiatal noted. Bones and chest wall: There is a 2.4 x 1.6 cm soft tissue density lesion in the left paratracheal upper mediastinum adjacent to the left common carotid artery. No suspicious bony lesions. Spine degenerative disease and facet arthropathy noted. Chronic appearing L1 compression deformity noted. No acute vertebral body compression fractures. No axillary or supraclavicular adenopathy by size criteria. Thyroid gland is within normal limits. Abdomen: Gallbladder is surgically absent. Visualized upper abdominal solid organs and bowel loops appear normal in the absence of contrast. IMPRESSION: 1. No acute disease process. 2. No pneumomediastinum or pneumothorax. 3. No consolidation or pleural fluid collections. 4. 2.4 x 1.6 cm soft tissue density mass in the superior mediastinum adjacent to the left margin of the trachea and the left common carotid artery. Recommend dedicated CT scan of the chest when clinically feasible for definitive characterization. Dictated by: Sybil Henry MD, PhD on 08/11/2018 at 17:36 Approved by: Sybil Henry MD, PhD on 08/11/2018 at 17:42
--- NOTE | 2018-08-11 18:16 | DI.CT.S_ITS ---
PROCEDURE: CT CHEST W CON INDICATIONS: mass on noncon TECHNIQUE: After the administration of intravenous contrast, 5 mm thick sections acquired from the pulmonary apices to the posterior costophrenic angles. 7 mm thick coronal and sagittal MIP reformats were acquired. For radiation dose reduction, the following was used: automated exposure control, adjustment of mA and/or kV according to patient size. COMPARISON: None. FINDINGS: Image quality: Excellent. Lungs and pleura: No acute air space opacities. No pleural effusions or pneumothorax. Central and peripheral airways are patent and normal in caliber. Mediastinum: Heart size is normal. No pericardial effusion. There is a 2.5 x 1.6 x 1.9 cm soft tissue density lesion inferior to the left lobe of the thyroid gland, adjacent to the left margin of the upper thoracic trachea and adjacent to the medial margin of the left common carotid artery. No hilar adenopathy by size criteria. Thoracic aorta and central pulmonary arteries are normal in size. Esophagus is normal in caliber. Small hiatal hernia. Bones and chest wall: No suspicious bony lesions. No vertebral body compression fractures. No axillary or supraclavicular adenopathy by size criteria. Thyroid gland is within normal limits. Abdomen: Visualized upper abdominal solid organs appear normal. Upper abdominal bowel loops are normal in caliber. IMPRESSION: Anterior-superior mediastinal mass. Differential diagnosis includes lymphadenopathy including metastatic disease and lymphoma,, thyroid neoplasm and thymoma. Dictated by: Sybil Henry MD, PhD on 08/11/2018 at 18:57 Approved by: Sybil Henry MD, PhD on 08/11/2018 at 19:03
[2018-08-11 18:23] VITALS: BP 171/97; PULSE 91; RESP 19; O2SAT 99
[2018-08-11 20:04] VITALS: BP 159/100; PULSE 88; RESP 18; O2SAT 98
--- NOTE | 2018-08-11 21:36 | ED.CHESTPAIN ---
HPI - Chest Pain <ELMIRA Davis - Last Filed: 08/11/18 21:44> General Chief Complaint: Chest Pain Stated Complaint: Chest pain, recent EGD Time Seen by Provider: 08/11/18 13:54 Source: patient Mode of arrival: ambulatory Limitations: no limitations History of Present Illness HPI narrative: The patient is a 57-year-old female former smoker presents with a chief complaint of chest pain radiating from her start him up. She states she has had 3 EGDs recently, with Guidry placement subsequent removal on Saturday with [facility] gastroenterology. She states that she felt fine the day after her Guidry was removed, ate pizza and did not feel this way. Then her chest pain started yesterday. It radiates up to the shoulders. She denies any fevers nausea vomiting diarrhea. She states her pain is worse after eating. She states it is worse when she is lying down. She states that her pain is worse if she leans forward. She denies any palpitations or swelling of the extremities. Related Data Home Medications Medication Instructions Recorded Confirmed duloxetine 20 mg PO DAILY 03/12/18 08/11/18 pantoprazole 40 mg PO DAILY 03/12/18 08/11/18 atorvastatin 10 mg PO BEDTIME 08/11/18 08/11/18 biotin 1 cap PO DAILY 08/11/18 08/11/18 duloxetine 30 mg PO DAILY 08/11/18 08/11/18 hyoscyamine sulfate 0.125 mg SUBLINGUAL Q6H PRN 08/11/18 08/11/18 lisinopril-hydrochlorothiazide 1 tab PO DAILY 08/11/18 08/11/18 meloxicam 15 mg PO DAILY 08/11/18 08/11/18 sucralfate 1 g PO QID 08/11/18 08/11/18 valacyclovir 1 g PO DAILY 08/11/18 08/11/18 Previous Rx's Medication Instructions Recorded gabapentin 300 mg capsule 300 mg PO TID #180 cap 10/16/17 Allergies Allergy/AdvReac Type Severity Reaction Status Date / Time NSAIDS (Non-Steroidal AdvReac Intermediate GI feels Verified 08/11/18 12:09 Anti-Inflamma like I've been punched in the stomach Review of Systems <ELMIRA Davis - Last Filed: 08/11/18 21:44> Review of Systems GENERAL: Denies chills, fatigue, malaise, fever, sweats. HEENT: Denies sinus pain, ear pain, sore throat, difficulty swallowing, dizziness. RESPIRATORY: See HPI CARDIOVASCULAR: See HPI GASTROINTESTINAL: Denies nausea, vomiting, abdominal pain, diarrhea, constipation, melena. : Denies dysuria, frequency, incontinence, hematuria, urinary retention. MUSCULOSKELETAL: denies weakness, joint pain, or bony pain SKIN: Denies rash, skin lesions, or other NEUROLOGIC: Denies weakness, headache, numbness, change in speech, confusion, seizures, incoordination. PSYCHIATRIC: No concerning psychosocial issues. 12 point review of systems is negative except for those stated above PFSH <ELMIRA Davis - Last Filed: 08/11/18 21:44> Medical History Anxiety (Chronic 2000) Arthritis (Chronic) Eczema (Chronic 2012) Fatigue (Chronic) Fibromyalgia (Chronic 2002) Generalized headaches (Chronic) Hayfever (Chronic) Herpes (Chronic 1979) Hyperlipidemia (Chronic) Hypertension (Chronic) Hypothyroidism (Chronic) Knee pain, right (Chronic) Migraines (Chronic) Rheumatoid arthritis (Chronic) Rosacea (Chronic) Urinary incontinence (Chronic 2004) Actinic keratosis (Resolved) Chicken pox (Resolved) Chickenpox (Resolved Unknown) Fibroids (Resolved) Foot pain (Resolved) Postmenopausal (Resolved) Shoulder pain (Resolved 2014) Skin cancer (Resolved) Surgical History Hx of laparoscopic gastric banding (Resolved) Anesthesia (Resolved) History of colonoscopy (Resolved 2005) History of colonoscopy with polypectomy (Resolved 06/04/17) History of esophagogastroduodenoscopy (EGD) (Resolved 06/04/17) History of esophagogastroduodenoscopy (EGD) (Resolved 09/30/17) History of partial hysterectomy (Resolved) History of removal of laparoscopic gastric banding device (Resolved 01/08/18) History of right knee surgery (Resolved 03/12/18) History of total right knee replacement (TKR) (Resolved 01/30/18) Status post delivery (Resolved 1988) Status post knee surgery (Resolved 2002) Family History Father Age: 85 Essential hypertension Hyperlipidemia Sister Age: 59 Essential hypertension Grandfather Breast cancer Mother No problems noted. Social History household members: spouse Smoking Status: Former smoker alcohol intake: current Family History Father Age: 85 Essential hypertension Hyperlipidemia Sister Age: 59 Essential hypertension Grandfather Breast cancer Mother No problems noted. Social History household members: spouse Smoking Status: Former smoker alcohol intake: current Exam <ELMIRA Davis - Last Filed: 08/11/18 21:44> Narrative Exam Narrative: GENERAL: This is a well-nourished, well-developed patient, appears anxious HEAD: Atraumatic. Normocephalic. No temporal or scalp tenderness. EYES: Pupils equal round and reactive. Extraocular motions intact. No scleral icterus. No injection or drainage. ENT: Nose without bleeding, purulent drainage or septal hematoma. Throat without erythema, tonsillar hypertrophy or exudate. Uvula midline. Airway patent. NECK: Trachea midline. No JVD or lymphadenopathy. Supple, nontender, no meningeal signs. no cough. CARDIOVASCULAR: Regular rate and rhythm without murmurs, gallops, or rubs. RESPIRATORY: Clear to auscultation. Breath sounds equal bilaterally. No wheezes, rales, or rhonchi. No pain on anterior posterior chest wall compression, no pain on lateral chest wall compression GASTROINTESTINAL: Abdomen soft, non-tender, nondistended. No hepato-splenomegaly, or palpable masses. No guarding. EXTREMITIES: No clubbing, cyanosis, or edema. No joint tenderness, effusion, or edema noted. BACK: Nontender without deformity or crepitance. No flank tenderness. NEURO: AOx3. SKIN: No rash or erythema. Initial Vital Signs Initial Vital Signs: Vital Signs Temperature 98.4 F 08/11/18 12:09 Pulse Rate 90 08/11/18 12:09 Respiratory Rate 16 08/11/18 12:09 Blood Pressure 145/96 H 08/11/18 12:09 Pulse Oximetry 98 08/11/18 12:09 <Marilin Pemberton DO - Last Filed: 08/12/18 07:36> Initial Vital Signs Initial Vital Signs: Vital Signs Temperature 98.4 F 08/11/18 12:09 Pulse Rate 90 08/11/18 12:09 Respiratory Rate 16 08/11/18 12:09 Blood Pressure 145/96 H 08/11/18 12:09 Pulse Oximetry 98 08/11/18 12:09 Course <VIRAL Davis-BC - Last Filed: 08/11/18 21:44> Orders Ordered: Discontinued Medications Acetaminophen (Tylenol) 650 mg PO NOW ONE Stop: 08/11/18 13:28 Last Admin: 08/11/18 13:28 Dose: 650 mg Al Hydrox/Mg Hydrox/Simethicone 20 ml/ Lidocaine HCl 15 ml 0 ml PO NOW ONE Stop: 08/11/18 14:22 Last Admin: 08/11/18 15:02 Dose: 30 ml Pantoprazole Sodium (Protonix) 40 mg IV NOW ONE Stop: 08/11/18 16:03 Last Admin: 08/11/18 16:09 Dose: 40 mg Sucralfate (Carafate) 1 gm PO Q6HR MIREYA Last Admin: 08/11/18 18:19 Dose: Not Given Admin: 08/11/18 17:02 Dose: 1 gm Vital Signs - 8 hr 08/11/18 15:30 08/11/18 16:00 08/11/18 18:23 Pulse Rate 83 83 91 H Respiratory Rate 16 15 19 Blood Pressure Blood Pressure [Left Arm] 150/77 H 147/83 H 171/97 H Pulse Oximetry 98 97 99 08/11/18 20:04 Pulse Rate 88 Respiratory Rate 18 Blood Pressure 159/100 H Blood Pressure [Left Arm] Pulse Oximetry 98 <Marilin Pemberton DO - Last Filed: 08/12/18 07:36> Orders Ordered: Discontinued Medications Acetaminophen (Tylenol) 650 mg PO NOW ONE Stop: 08/11/18 13:28 Last Admin: 08/11/18 13:28 Dose: 650 mg Al Hydrox/Mg Hydrox/Simethicone 20 ml/ Lidocaine HCl 15 ml 0 ml PO NOW ONE Stop: 08/11/18 14:22 Last Admin: 08/11/18 15:02 Dose: 30 ml Pantoprazole Sodium (Protonix) 40 mg IV NOW ONE Stop: 08/11/18 16:03 Last Admin: 08/11/18 16:09 Dose: 40 mg Sucralfate (Carafate) 1 gm PO Q6HR MIREYA Last Admin: 08/11/18 18:19 Dose: Not Given Admin: 08/11/18 17:02 Dose: 1 gm Vital Signs - 8 hr 08/11/18 15:30 08/11/18 16:00 08/11/18 18:23 Pulse Rate 83 83 91 H Respiratory Rate 16 15 19 Blood Pressure Blood Pressure [Left Arm] 150/77 H 147/83 H 171/97 H Pulse Oximetry 98 97 99 08/11/18 20:04 Pulse Rate 88 Respiratory Rate 18 Blood Pressure 159/100 H Blood Pressure [Left Arm] Pulse Oximetry 98 MDM - Chest Pain <GABRIEL Davis - Last Filed: 08/11/18 21:44> Lab Data Result diagrams: 08/11/18 12:20 08/11/18 12:20 Lab Results 08/11/18 08/11/18 08/11/18 Range/Units 12:20 12:20 12:20 WBC 7.5 (4.5-11.0) X10^3/uL RBC 4.81 (4.0-5.2) X10^6/uL Hgb 14.2 (12.0-16.0) g/dL Hct 42.9 (36-46) % MCV 89.2 (80-100) fL MCH 29.6 (26-34) PG MCHC 33.2 (30-36) % RDW 13.1 (11.6-14.8) % Plt Count 243 (150-400) X10^3/uL Neut % (Auto) 73.9 (50-75) % Lymph % (Auto) 19.4 L (25-40) % Elmore % (Auto) 5.5 (3-14) % Eos % (Auto) 0.9 L (2-4) % Baso % (Auto) 0.3 (0-2) % Neut # (Auto) 5600 (9765-5936) /uL Lymph # (Auto) 1500 (5603-1320) /uL Elmore # (Auto) 400 (0-900) /uL Eos # (Auto) 100 (0-450) /uL Baso # (Auto) 0 (0-100) /uL Sodium 139 (137-145) mmol/L Potassium 3.9 (3.4-5.1) mmol/L Chloride 105 (98-107) mmol/L Carbon Dioxide 25 (22-32) mmol/L BUN 10 (7-17) mg/dL Creatinine 0.70 (0.52-1.04) mg/dL Estimated GFR > 60.0 (>60) mL/min BUN/Creatinine Ratio 14.3 (6-22) Glucose 89 (70-100) mg/dL Lactate (0.7-2.1) mmol/L Calcium 9.2 (8.4-10.2) mg/dL Magnesium 1.8 (1.6-2.3) mg/dL Total Creatine Kinase 39 (30-135) U/L CK-MB (CK-2) TNP CK-MB (CK-2) Rel Index TNP Troponin I < 0.012 (0.01-0.034) ng/mL B-Natriuretic Peptide < 100 (<100) Procalcitonin < 0.05 (<0.5) ng/mL 08/11/18 08/11/18 Range/Units 12:40 15:40 WBC (4.5-11.0) X10^3/uL RBC (4.0-5.2) X10^6/uL Hgb (12.0-16.0) g/dL Hct (36-46) % MCV (80-100) fL MCH (26-34) PG MCHC (30-36) % RDW (11.6-14.8) % Plt Count (150-400) X10^3/uL Neut % (Auto) (50-75) % Lymph % (Auto) (25-40) % Elmore % (Auto) (3-14) % Eos % (Auto) (2-4) % Baso % (Auto) (0-2) % Neut # (Auto) (4966-3442) /uL Lymph # (Auto) (0302-4241) /uL Elmore # (Auto) (0-900) /uL Eos # (Auto) (0-450) /uL Baso # (Auto) (0-100) /uL Sodium (137-145) mmol/L Potassium (3.4-5.1) mmol/L Chloride (98-107) mmol/L Carbon Dioxide (22-32) mmol/L BUN (7-17) mg/dL Creatinine (0.52-1.04) mg/dL Estimated GFR (>60) mL/min BUN/Creatinine Ratio (6-22) Glucose (70-100) mg/dL Lactate 0.8 (0.7-2.1) mmol/L Calcium (8.4-10.2) mg/dL Magnesium (1.6-2.3) mg/dL Total Creatine Kinase 30 (30-135) U/L CK-MB (CK-2) TNP CK-MB (CK-2) Rel Index TNP Troponin I < 0.012 (0.01-0.034) ng/mL B-Natriuretic Peptide (<100) Procalcitonin (<0.5) ng/mL Imaging Data Chest x-ray: Radiologist's impression: Amy Thurston 57 F [address] [address] XRay Report Signed Patient: Amy Thurston [facility]#: [id number] : 1960Acct:[id number] Age/Sex: 57 / FDate of Service: 08/11/18 Loc: ED Accession Number: [id number] Procedure: XR chest 2V Ordering Provider: Marilin Bustamante- PROCEDURE: XR CHEST 2V INDICATIONS: cough, chest pain TECHNIQUE: 2 views of the chest were acquired. COMPARISON: [facility] , CHEST 2 VIEW, 12/05/2016, 7:38. FINDINGS: Surgical changes and devices: None. Lungs and pleura: Lungs are clear. No pleural effusions or pneumothorax. Mediastinum: Mediastinal contours are normal. Heart size is normal. Bones and chest wall: No suspicious bony abnormalities. Soft tissues appear unremarkable. IMPRESSION: No acute cardiopulmonary pathology. Dictated by: Johann Flores M.D. on 08/11/2018 at 14:47 Approved by: Johann Flores M.D. on 08/11/2018 at 14:[address] non con : Radiologist's impression: [address] [address] [address] Scan Report Signed Patient: Amy Thurston [facility]#: [id number] : 1960Acct:[id number] Age/Sex: 57 / FDate of Service: 08/11/18 Loc: ED Accession Number: [id number] Procedure: CT chest wo con Ordering Provider: Marilin Bustamante PROCEDURE: CT CHEST WO CON INDICATIONS: chest pain s/p egd TECHNIQUE: Noncontrast 5 mm thick sections acquired from the pulmonary apices to the posterior costophrenic angles. 7 mm thick coronal and sagittal MIP reformats were then acquired. For radiation dose reduction, the following was used: automated exposure control, adjustment of mA and/or kV according to patient size. COMPARISON: [facility], CR, XR CHEST 2V, 08/11/2018, 14:28. FINDINGS: Image quality: Excellent. Lungs and pleura: No acute air space opacities. No pleural effusions or pneumothorax. Central and peripheral airways are patent and normal in caliber. Mediastinum: Heart size is normal. No pericardial effusion. No mediastinal adenopathy by size criteria. Thoracic aorta and central pulmonary arteries are normal in size. Esophagus is normal in caliber. Small hiatal noted. Bones and chest wall: There is a 2.4 x 1.6 cm soft tissue density lesion in the left paratracheal upper mediastinum adjacent to the left common carotid artery. No suspicious bony lesions. Spine degenerative disease and facet arthropathy noted. Chronic appearing L1 compression deformity noted. No acute vertebral body compression fractures. No axillary or supraclavicular adenopathy by size criteria. Thyroid gland is within normal limits. Abdomen: Gallbladder is surgically absent. Visualized upper abdominal solid organs and bowel loops appear normal in the absence of contrast. IMPRESSION: 1. No acute disease process. 2. No pneumomediastinum or pneumothorax. 3. No consolidation or pleural fluid collections. 4. 2.4 x 1.6 cm soft tissue density mass in the superior mediastinum adjacent to the left margin of the trachea and the left common carotid artery. Recommend dedicated CT scan of the chest when clinically feasible for definitive characterization. Dictated by: Sybil Henry MD, PhD on 08/11/2018 at 17:36 Approved by: Sybil Henry MD, PhD on 08/11/2018 at 17:42 CT scan - chest: Radiologist's impression: [address] [address] [address] Scan Report Signed Patient: Amy Thurston [facility]#: [id number] : 1960Acct:[id number] Age/Sex: 57 / FDate of Service: 08/11/18 Loc: ED Accession Number: [id number] Procedure: CT chest w con Ordering Provider: Marilin Bustamante- PROCEDURE: CT CHEST W CON INDICATIONS: mass on noncon TECHNIQUE: After the administration of intravenous contrast, 5 mm thick sections acquired from the pulmonary apices to the posterior costophrenic angles. 7 mm thick coronal and sagittal MIP reformats were acquired. For radiation dose reduction, the following was used: automated exposure control, adjustment of mA and/or kV according to patient size. COMPARISON: None. FINDINGS: Image quality: Excellent. Lungs and pleura: No acute air space opacities. No pleural effusions or pneumothorax. Central and peripheral airways are patent and normal in caliber. Mediastinum: Heart size is normal. No pericardial effusion. There is a 2.5 x 1.6 x 1.9 cm soft tissue density lesion inferior to the left lobe of the thyroid gland, adjacent to the left margin of the upper thoracic trachea and adjacent to the medial margin of the left common carotid artery. No hilar adenopathy by size criteria. Thoracic aorta and central pulmonary arteries are normal in size. Esophagus is normal in caliber. Small hiatal hernia. Bones and chest wall: No suspicious bony lesions. No vertebral body compression fractures. No axillary or supraclavicular adenopathy by size criteria. Thyroid gland is within normal limits. Abdomen: Visualized upper abdominal solid organs appear normal. Upper abdominal bowel loops are normal in caliber. IMPRESSION: Anterior-superior mediastinal mass. Differential diagnosis includes lymphadenopathy including metastatic disease and lymphoma,, thyroid neoplasm and thymoma. Dictated by: Sybil Henry MD, PhD on 08/11/2018 at 18:57 Approved by: Sybil Henry MD, PhD on 08/11/2018 at 19:03 ECG Data Interpretation: Sinus rhythm. Ventricular rate 85. No ST elevation or depression noted. No ectopy. Reviewed by Dr Pemberton at 12:14 p.m. [facility] Narrative Medical decision making narrative: The patient is a 57-year-old female presents with epigastric pain. she had 2 sets of negative troponins, normal EKG and normal CBC CMP. She achieved some relief with a GI cocktail. Given her recent EGD procedures a soak with the on-call physician for [facility] gastroenterology regarding the possibility of perforation. I spoke with Dr. Aguilar regarding the patient, stated that the possibility of perforation is low, but to do a CT if concerned. Encouraged follow-up with them. Patient elected for a CT, and initial non contrast CT illustrated a mass the superior mediastinum. I discussed this with the patient, and discussed the possibility of doing a CT with contrast to help further differentiate the mass. I did discuss the increased risk of radiation with 2 CTs in rapid succession. Patient was okay with this and a contrast CT was obtained. I discussed at length the importance of following up with primary care physician. The patient plans on calling her PCP in the morning. Discussed the importance of following up with GI, patient states understanding. Discussed possible etiologies of the mass including lymphadenopathy, metastatic disease, thyroid mass. patient states she will followup has no questions or concerns upon discharge. Discussed coming back to the emergency department for any acute concerns. Patient was discharged with a disc with her imaging as well as copies of her imaging reports. <Marilin Pemberton, DO - Last Filed: 08/12/18 07:36> Lab Data Lab Results 08/11/18 08/11/18 08/11/18 Range/Units 12:20 12:20 12:20 WBC 7.5 (4.5-11.0) X10^3/uL RBC 4.81 (4.0-5.2) X10^6/uL Hgb 14.2 (12.0-16.0) g/dL Hct 42.9 (36-46) % MCV 89.2 (80-100) fL MCH 29.6 (26-34) PG MCHC 33.2 (30-36) % RDW 13.1 (11.6-14.8) % Plt Count 243 (150-400) X10^3/uL Neut % (Auto) 73.9 (50-75) % Lymph % (Auto) 19.4 L (25-40) % Elmore % (Auto) 5.5 (3-14) % Eos % (Auto) 0.9 L (2-4) % Baso % (Auto) 0.3 (0-2) % Neut # (Auto) 5600 (9618-2683) /uL Lymph # (Auto) 1500 (7630-6216) /uL Elmore # (Auto) 400 (0-900) /uL Eos # (Auto) 100 (0-450) /uL Baso # (Auto) 0 (0-100) /uL Sodium 139 (137-145) mmol/L Potassium 3.9 (3.4-5.1) mmol/L Chloride 105 (98-107) mmol/L Carbon Dioxide 25 (22-32) mmol/L BUN 10 (7-17) mg/dL Creatinine 0.70 (0.52-1.04) mg/dL Estimated GFR > 60.0 (>60) mL/min BUN/Creatinine Ratio 14.3 (6-22) Glucose 89 (70-100) mg/dL Lactate (0.7-2.1) mmol/L Calcium 9.2 (8.4-10.2) mg/dL Magnesium 1.8 (1.6-2.3) mg/dL Total Creatine Kinase 39 (30-135) U/L CK-MB (CK-2) TNP CK-MB (CK-2) Rel Index TNP Troponin I < 0.012 (0.01-0.034) ng/mL B-Natriuretic Peptide < 100 (<100) Procalcitonin < 0.05 (<0.5) ng/mL 08/11/18 08/11/18 Range/Units 12:40 15:40 WBC (4.5-11.0) X10^3/uL RBC (4.0-5.2) X10^6/uL Hgb (12.0-16.0) g/dL Hct (36-46) % MCV (80-100) fL MCH (26-34) PG MCHC (30-36) % RDW (11.6-14.8) % Plt Count (150-400) X10^3/uL Neut % (Auto) (50-75) % Lymph % (Auto) (25-40) % Elmore % (Auto) (3-14) % Eos % (Auto) (2-4) % Baso % (Auto) (0-2) % Neut # (Auto) (1342-7313) /uL Lymph # (Auto) (1207-4857) /uL Elmore # (Auto) (0-900) /uL Eos # (Auto) (0-450) /uL Baso # (Auto) (0-100) /uL Sodium (137-145) mmol/L Potassium (3.4-5.1) mmol/L Chloride (98-107) mmol/L Carbon Dioxide (22-32) mmol/L BUN (7-17) mg/dL Creatinine (0.52-1.04) mg/dL Estimated GFR (>60) mL/min BUN/Creatinine Ratio (6-22) Glucose (70-100) mg/dL Lactate 0.8 (0.7-2.1) mmol/L Calcium (8.4-10.2) mg/dL Magnesium (1.6-2.3) mg/dL Total Creatine Kinase 30 (30-135) U/L CK-MB (CK-2) TNP CK-MB (CK-2) Rel Index TNP Troponin I < 0.012 (0.01-0.034) ng/mL B-Natriuretic Peptide (<100) Procalcitonin (<0.5) ng/mL Discharge Plan Departure Patient Disposition: Home Clinical Impression: Mass Discharge Date/Time: 08/11/18 20:04 Interventions: ED Discharge Assessment Last Done: 08/11/18 20:04 Instructions: DI for Atypical Chest Pain Activity Restrictions/Additional Instructions: Please follow up with her primary care provider tomorrow as we discussed. We have given you a copy of your CT results. This mass needs to be worked up further. Please come back to the emergency department for any acute concerns. This includes chest pain, shortness of breath etc. Please also follow up with GI as well. Prescriptions: No Action gabapentin [Neurontin] 300 mg capsule 300 mg PO TID Qty: 180 RF: 3 duloxetine 20 mg capsule,delayed release(DR/EC) 20 mg PO DAILY RF: 0 pantoprazole 20 mg Tablet,Delayed Release (Dr/Ec) 40 mg PO DAILY RF: 0 atorvastatin 10 mg tablet 10 mg PO BEDTIME RF: 0 valacyclovir 1 gram tablet 1 g PO DAILY RF: 0 meloxicam 15 mg tablet 15 mg PO DAILY RF: 0 hyoscyamine sulfate 0.125 mg tablet, sublingual 0.125 mg Sublingual Q6H PRN (Reason: Spasms) RF: 0 lisinopril-hydrochlorothiazide 20-12.5 mg tablet 1 tab PO DAILY RF: 0 sucralfate 1 gram tablet 1 g PO QID RF: 0 duloxetine 30 mg Capsule,Delayed Release(Dr/Ec) 30 mg PO DAILY RF: 0 biotin 1 cap PO DAILY RF: 0 Referrals: Ish Colmenares MD [Primary Care Provider] - <Marilin Pemberton DO - Last Filed: 08/12/18 07:36> Cosign ED Attending Cosignature Attestation: I was immediately available in the department for consultation. This documentation has been reviewed and I agree with assessment and plan. Supervised by Marilin Pemberton DO
--- NOTE | 2018-08-11 21:44 | ED_ITS ---
HPI - Chest Pain <ELMIRA Davis - Last Filed: 08/11/18 21:44> General Chief Complaint: Chest Pain Stated Complaint: Chest pain, recent EGD Time Seen by Provider: 08/11/18 13:54 Source: patient Mode of arrival: ambulatory Limitations: no limitations History of Present Illness HPI narrative: The patient is a 57-year-old female former smoker presents with a chief complaint of chest pain radiating from her start him up. She states she has had 3 EGDs recently, with Guidry placement subsequent removal on Saturday with [facility] gastroenterology. She states that she felt fine the day after her Guidry was removed, ate pizza and did not feel this way. Then her chest pain started yesterday. It radiates up to the shoulders. She denies any fevers nausea vomiting diarrhea. She states her pain is worse after eating. She states it is worse when she is lying down. She states that her pain is worse if she leans forward. She denies any palpitations or swelling of the extremities. Related Data Home Medications Medication Instructions Recorded Confirmed duloxetine 20 mg PO DAILY 03/12/18 08/11/18 pantoprazole 40 mg PO DAILY 03/12/18 08/11/18 atorvastatin 10 mg PO BEDTIME 08/11/18 08/11/18 biotin 1 cap PO DAILY 08/11/18 08/11/18 duloxetine 30 mg PO DAILY 08/11/18 08/11/18 hyoscyamine sulfate 0.125 mg SUBLINGUAL Q6H PRN 08/11/18 08/11/18 lisinopril-hydrochlorothiazide 1 tab PO DAILY 08/11/18 08/11/18 meloxicam 15 mg PO DAILY 08/11/18 08/11/18 sucralfate 1 g PO QID 08/11/18 08/11/18 valacyclovir 1 g PO DAILY 08/11/18 08/11/18 Previous Rx's Medication Instructions Recorded gabapentin 300 mg capsule 300 mg PO TID #180 cap 10/16/17 Allergies Allergy/AdvReac Type Severity Reaction Status Date / Time NSAIDS (Non-Steroidal AdvReac Intermediate GI feels Verified 08/11/18 12:09 Anti-Inflamma like I've been punched in the stomach Review of Systems <ELMIRA Davis - Last Filed: 08/11/18 21:44> Review of Systems GENERAL: Denies chills, fatigue, malaise, fever, sweats. HEENT: Denies sinus pain, ear pain, sore throat, difficulty swallowing, dizziness. RESPIRATORY: See HPI CARDIOVASCULAR: See HPI GASTROINTESTINAL: Denies nausea, vomiting, abdominal pain, diarrhea, constipation, melena. : Denies dysuria, frequency, incontinence, hematuria, urinary retention. MUSCULOSKELETAL: denies weakness, joint pain, or bony pain SKIN: Denies rash, skin lesions, or other NEUROLOGIC: Denies weakness, headache, numbness, change in speech, confusion, seizures, incoordination. PSYCHIATRIC: No concerning psychosocial issues. 12 point review of systems is negative except for those stated above PFSH <ELMIRA Davis - Last Filed: 08/11/18 21:44> Medical History Anxiety (Chronic 2000) Arthritis (Chronic) Eczema (Chronic 2012) Fatigue (Chronic) Fibromyalgia (Chronic 2002) Generalized headaches (Chronic) Hayfever (Chronic) Herpes (Chronic 1979) Hyperlipidemia (Chronic) Hypertension (Chronic) Hypothyroidism (Chronic) Knee pain, right (Chronic) Migraines (Chronic) Rheumatoid arthritis (Chronic) Rosacea (Chronic) Urinary incontinence (Chronic 2004) Actinic keratosis (Resolved) Chicken pox (Resolved) Chickenpox (Resolved Unknown) Fibroids (Resolved) Foot pain (Resolved) Postmenopausal (Resolved) Shoulder pain (Resolved 2014) Skin cancer (Resolved) Surgical History Hx of laparoscopic gastric banding (Resolved) Anesthesia (Resolved) History of colonoscopy (Resolved 2005) History of colonoscopy with polypectomy (Resolved 06/04/17) History of esophagogastroduodenoscopy (EGD) (Resolved 06/04/17) History of esophagogastroduodenoscopy (EGD) (Resolved 09/30/17) History of partial hysterectomy (Resolved) History of removal of laparoscopic gastric banding device (Resolved 01/08/18) History of right knee surgery (Resolved 03/12/18) History of total right knee replacement (TKR) (Resolved 01/30/18) Status post delivery (Resolved 1988) Status post knee surgery (Resolved 2002) Family History Father Age: 85 Essential hypertension Hyperlipidemia Sister Age: 59 Essential hypertension Grandfather Breast cancer Mother No problems noted. Social History household members: spouse Smoking Status: Former smoker alcohol intake: current Family History Father Age: 85 Essential hypertension Hyperlipidemia Sister Age: 59 Essential hypertension Grandfather Breast cancer Mother No problems noted. Social History household members: spouse Smoking Status: Former smoker alcohol intake: current Exam <ELMIRA Davis - Last Filed: 08/11/18 21:44> Narrative Exam Narrative: GENERAL: This is a well-nourished, well-developed patient, appears anxious HEAD: Atraumatic. Normocephalic. No temporal or scalp tenderness. EYES: Pupils equal round and reactive. Extraocular motions intact. No scleral icterus. No injection or drainage. ENT: Nose without bleeding, purulent drainage or septal hematoma. Throat without erythema, tonsillar hypertrophy or exudate. Uvula midline. Airway patent. NECK: Trachea midline. No JVD or lymphadenopathy. Supple, nontender, no meningeal signs. no cough. CARDIOVASCULAR: Regular rate and rhythm without murmurs, gallops, or rubs. RESPIRATORY: Clear to auscultation. Breath sounds equal bilaterally. No wheezes, rales, or rhonchi. No pain on anterior posterior chest wall compression, no pain on lateral chest wall compression GASTROINTESTINAL: Abdomen soft, non-tender, nondistended. No hepato- splenomegaly, or palpable masses. No guarding. EXTREMITIES: No clubbing, cyanosis, or edema. No joint tenderness, effusion, or edema noted. BACK: Nontender without deformity or crepitance. No flank tenderness. NEURO: AOx3. SKIN: No rash or erythema. Initial Vital Signs Initial Vital Signs: Vital Signs Temperature 98.4 F 08/11/18 12:09 Pulse Rate 90 08/11/18 12:09 Respiratory Rate 16 08/11/18 12:09 Blood Pressure 145/96 H 08/11/18 12:09 Pulse Oximetry 98 08/11/18 12:09 <Marilin Pemberton DO - Last Filed: 08/12/18 07:36> Initial Vital Signs Initial Vital Signs: Vital Signs Temperature 98.4 F 08/11/18 12:09 Pulse Rate 90 08/11/18 12:09 Respiratory Rate 16 08/11/18 12:09 Blood Pressure 145/96 H 08/11/18 12:09 Pulse Oximetry 98 08/11/18 12:09 Course <VIRAL Davis-BC - Last Filed: 08/11/18 21:44> Orders Ordered: Discontinued Medications Acetaminophen (Tylenol) 650 mg PO NOW ONE Stop: 08/11/18 13:28 Last Admin: 08/11/18 13:28 Dose: 650 mg Al Hydrox/Mg Hydrox/Simethicone 20 ml/ Lidocaine HCl 15 ml 0 ml PO NOW ONE Stop: 08/11/18 14:22 Last Admin: 08/11/18 15:02 Dose: 30 ml Pantoprazole Sodium (Protonix) 40 mg IV NOW ONE Stop: 08/11/18 16:03 Last Admin: 08/11/18 16:09 Dose: 40 mg Sucralfate (Carafate) 1 gm PO Q6HR MIREYA Last Admin: 08/11/18 18:19 Dose: Not Given Admin: 08/11/18 17:02 Dose: 1 gm Vital Signs - 8 hr 08/11/18 15:30 08/11/18 16:00 08/11/18 18:23 Pulse Rate 83 83 91 H Respiratory Rate 16 15 19 Blood Pressure Blood Pressure [Left Arm] 150/77 H 147/83 H 171/97 H Pulse Oximetry 98 97 99 08/11/18 20:04 Pulse Rate 88 Respiratory Rate 18 Blood Pressure 159/100 H Blood Pressure [Left Arm] Pulse Oximetry 98 <Marilin Pemberton DO - Last Filed: 08/12/18 07:36> Orders Ordered: Discontinued Medications Acetaminophen (Tylenol) 650 mg PO NOW ONE Stop: 08/11/18 13:28 Last Admin: 08/11/18 13:28 Dose: 650 mg Al Hydrox/Mg Hydrox/Simethicone 20 ml/ Lidocaine HCl 15 ml 0 ml PO NOW ONE Stop: 08/11/18 14:22 Last Admin: 08/11/18 15:02 Dose: 30 ml Pantoprazole Sodium (Protonix) 40 mg IV NOW ONE Stop: 08/11/18 16:03 Last Admin: 08/11/18 16:09 Dose: 40 mg Sucralfate (Carafate) 1 gm PO Q6HR MIREYA Last Admin: 08/11/18 18:19 Dose: Not Given Admin: 08/11/18 17:02 Dose: 1 gm Vital Signs - 8 hr 08/11/18 15:30 08/11/18 16:00 08/11/18 18:23 Pulse Rate 83 83 91 H Respiratory Rate 16 15 19 Blood Pressure Blood Pressure [Left Arm] 150/77 H 147/83 H 171/97 H Pulse Oximetry 98 97 99 08/11/18 20:04 Pulse Rate 88 Respiratory Rate 18 Blood Pressure 159/100 H Blood Pressure [Left Arm] Pulse Oximetry 98 MDM - Chest Pain <GABRIEL Davis - Last Filed: 08/11/18 21:44> Lab Data Result diagrams: 08/11/18 12:20 08/11/18 12:20 Lab Results 08/11/18 08/11/18 08/11/18 Range/Units 12:20 12:20 12:20 WBC 7.5 (4.5-11.0) X10^3/uL RBC 4.81 (4.0-5.2) X10^6/uL Hgb 14.2 (12.0-16.0) g/dL Hct 42.9 (36-46) % MCV 89.2 (80-100) fL MCH 29.6 (26-34) PG MCHC 33.2 (30-36) % RDW 13.1 (11.6-14.8) % Plt Count 243 (150-400) X10^3/uL Neut % (Auto) 73.9 (50-75) % Lymph % (Auto) 19.4 L (25-40) % [place] % (Auto) 5.5 (3-14) % Eos % (Auto) 0.9 L (2-4) % Baso % (Auto) 0.3 (0-2) % Neut # (Auto) 5600 (9406-1262) /uL Lymph # (Auto) 1500 (7217-8205) /uL [place] # (Auto) 400 (0-900) /uL Eos # (Auto) 100 (0-450) /uL Baso # (Auto) 0 (0-100) /uL Sodium 139 (137-145) mmol/L Potassium 3.9 (3.4-5.1) mmol/L Chloride 105 (98-107) mmol/L Carbon Dioxide 25 (22-32) mmol/L BUN 10 (7-17) mg/dL Creatinine 0.70 (0.52-1.04) mg/dL Estimated GFR > 60.0 (>60) mL/min BUN/Creatinine Ratio 14.3 (6-22) Glucose 89 (70-100) mg/dL Lactate (0.7-2.1) mmol/L Calcium 9.2 (8.4-10.2) mg/dL Magnesium 1.8 (1.6-2.3) mg/dL Total Creatine Kinase 39 (30-135) U/L CK-MB (CK-2) TNP CK-MB (CK-2) Rel Index TNP Troponin I < 0.012 (0.01-0.034) ng/mL B-Natriuretic Peptide < 100 (<100) Procalcitonin < 0.05 (<0.5) ng/mL 08/11/18 08/11/18 Range/Units 12:40 15:40 WBC (4.5-11.0) X10^3/uL RBC (4.0-5.2) X10^6/uL Hgb (12.0-16.0) g/dL Hct (36-46) % MCV (80-100) fL MCH (26-34) PG MCHC (30-36) % RDW (11.6-14.8) % Plt Count (150-400) X10^3/uL Neut % (Auto) (50-75) % Lymph % (Auto) (25-40) % [place] % (Auto) (3-14) % Eos % (Auto) (2-4) % Baso % (Auto) (0-2) % Neut # (Auto) (8989-9667) /uL Lymph # (Auto) (4025-4695) /uL [place] # (Auto) (0-900) /uL Eos # (Auto) (0-450) /uL Baso # (Auto) (0-100) /uL Sodium (137-145) mmol/L Potassium (3.4-5.1) mmol/L Chloride (98-107) mmol/L Carbon Dioxide (22-32) mmol/L BUN (7-17) mg/dL Creatinine (0.52-1.04) mg/dL Estimated GFR (>60) mL/min BUN/Creatinine Ratio (6-22) Glucose (70-100) mg/dL Lactate 0.8 (0.7-2.1) mmol/L Calcium (8.4-10.2) mg/dL Magnesium (1.6-2.3) mg/dL Total Creatine Kinase 30 (30-135) U/L CK-MB (CK-2) TNP CK-MB (CK-2) Rel Index TNP Troponin I < 0.012 (0.01-0.034) ng/mL B-Natriuretic Peptide (<100) Procalcitonin (<0.5) ng/mL Imaging Data Chest x-ray: Radiologist's impression: Amy Thurston 57 F [address] [address] XRay Report Signed Patient: Amy Thurston [facility]#: [id number] : 1960Acct:[id number] Age/Sex: 57 / FDate of Service: 08/11/18 Loc: ED Accession Number: [id number] Procedure: XR chest 2V Ordering Provider: Marilin Bustamante- PROCEDURE: XR CHEST 2V INDICATIONS: cough, chest pain TECHNIQUE: 2 views of the chest were acquired. COMPARISON: [facility] , CHEST 2 VIEW, 12/05/2016, 7:38. FINDINGS: Surgical changes and devices: None. Lungs and pleura: Lungs are clear. No pleural effusions or pneumothorax. Mediastinum: Mediastinal contours are normal. Heart size is normal. Bones and chest wall: No suspicious bony abnormalities. Soft tissues appear unremarkable. IMPRESSION: No acute cardiopulmonary pathology. Dictated by: Johann Flores M.D. on 08/11/2018 at 14:47 Approved by: Johann Flores M.D. on 08/11/2018 at 14:[address] non con : Radiologist's impression: [address] [address] [address] Scan Report Signed Patient: Amy Thurston [facility]#: [id number] : 1960Acct:[id number] Age/Sex: 57 / FDate of Service: 08/11/18 Loc: ED Accession Number: [id number] Procedure: CT chest wo con Ordering Provider: Marilin Bustamante PROCEDURE: CT CHEST WO CON INDICATIONS: chest pain s/p egd TECHNIQUE: Noncontrast 5 mm thick sections acquired from the pulmonary apices to the posterior costophrenic angles. 7 mm thick coronal and sagittal MIP reformats were then acquired. For radiation dose reduction, the following was used: automated exposure control, adjustment of mA and/or kV according to patient size. COMPARISON: [facility], CR, XR CHEST 2V, 08/11/2018, 14:28. FINDINGS: Image quality: Excellent. Lungs and pleura: No acute air space opacities. No pleural effusions or pneumothorax. Central and peripheral airways are patent and normal in caliber. Mediastinum: Heart size is normal. No pericardial effusion. No mediastinal adenopathy by size criteria. Thoracic aorta and central pulmonary arteries are normal in size. Esophagus is normal in caliber. Small hiatal noted. Bones and chest wall: There is a 2.4 x 1.6 cm soft tissue density lesion in the left paratracheal upper mediastinum adjacent to the left common carotid artery. No suspicious bony lesions. Spine degenerative disease and facet arthropathy noted. Chronic appearing L1 compression deformity noted. No acute vertebral body compression fractures. No axillary or supraclavicular adenopathy by size criteria. Thyroid gland is within normal limits. Abdomen: Gallbladder is surgically absent. Visualized upper abdominal solid organs and bowel loops appear normal in the absence of contrast. IMPRESSION: 1. No acute disease process. 2. No pneumomediastinum or pneumothorax. 3. No consolidation or pleural fluid collections. 4. 2.4 x 1.6 cm soft tissue density mass in the superior mediastinum adjacent to the left margin of the trachea and the left common carotid artery. Recommend dedi cated CT scan of the chest when clinically feasible for definitive characterization. Dictated by: Sybil Henry MD, PhD on 08/11/2018 at 17:36 Approved by: Sybil Henry MD, PhD on 08/11/2018 at 17:42 CT scan - chest: Radiologist's impression: [address] [address] [address] Scan Report Signed Patient: Amy Thurston [facility]#: [id number] : 1960Acct:[id number] Age/Sex: 57 / FDate of Service: 08/11/18 Loc: ED Accession Number: [id number] Procedure: CT chest w con Ordering Provider: Marilin Bustamante [employer]- PROCEDURE: CT CHEST W CON INDICATIONS: mass on noncon TECHNIQUE: After the administration of intravenous contrast, 5 mm thick sections acquired from the pulmonary apices to the posterior costophrenic angles. 7 mm thick coronal and sagittal MIP reformats were acquired. For radiation dose reduction, the following was used: automated exposure control, adjustment of mA and/or kV according to patient size. COMPARISON: None. FINDINGS: Image quality: Excellent. Lungs and pleura: No acute air space opacities. No pleural effusions or pneumothorax. Central and peripheral airways are patent and normal in caliber. Mediastinum: Heart size is normal. No pericardial effusion. There is a 2.5 x 1.6 x 1.9 cm soft tissue density lesion inferior to the left lobe of the thyroid gland, adjacent to the left margin of the upper thoracic trachea and adjacent to the medial margin of the left common carotid artery. No hilar adenopathy by size criteria. Thoracic aorta and central pulmonary arteries are normal in size. Esophagus is normal in caliber. Small hiatal hernia. Bones and chest wall: No suspicious bony lesions. No vertebral body compression fractures. No axillary or supraclavicular adenopathy by size criteria. Thyroid gland is within normal limits. Abdomen: Visualized upper abdominal solid organs appear normal. Upper abdominal bowel loops are normal in caliber. IMPRESSION: Anterior-superior mediastinal mass. Differential diagnosis includes lymphadenopathy including metastatic disease and lymphoma,, thyroid neoplasm and thymoma. Dictated by: Sybil Henry MD, PhD on 08/11/2018 at 18:57 Approved by: Sybil Henry MD, PhD on 08/11/2018 at 19:03 ECG Data Interpretation: Sinus rhythm. Ventricular rate 85. No ST elevation or depression noted. No ectopy. Reviewed by Dr Pemberton at 12:14 p.m. [facility] Narrative Medical decision making narrative: The patient is a 57-year-old female presents with epigastric pain. she had 2 sets of negative troponins, normal EKG and normal CBC CMP. She achieved some relief with a GI cocktail. Given her recent EGD procedures a soak with the on-call physician for [facility] gastroenterology regarding the possibility of perforation. I spoke with Dr. Aguilar regarding the patient, stated that the possibility of perforation is low, but to do a CT if concerned. Encouraged follow-up with them. Patient elected for a CT, and initial non contrast CT illustrated a mass the superior mediastinum. I discussed this with the patient, and discussed the possibility of doing a CT with contrast to help further differentiate the mass. I did discuss the increased risk of radiation with 2 CTs in rapid succession. Patient was okay with this and a contrast CT was obtained. I discussed at length the importance of following up with primary care physician. The patient plans on calling her PCP in the morning. Discussed the importance of following up with GI, patient states understanding. Discussed possible etiologies of the mass including lymphadenopathy, metastatic disease, thyroid mass. patient states she will followup has no questions or concerns upon discharge. Discussed coming back to the emergency department for any acute concerns. Patient was discharged with a disc with her imaging as well as copies of her imaging reports. <Marilin Pemberton, DO - Last Filed: 08/12/18 07:36> Lab Data Lab Results 08/11/18 08/11/18 08/11/18 Range/Units 12:20 12:20 12:20 WBC 7.5 (4.5-11.0) X10^3/uL RBC 4.81 (4.0-5.2) X10^6/uL Hgb 14.2 (12.0-16.0) g/dL Hct 42.9 (36-46) % MCV 89.2 (80-100) fL MCH 29.6 (26-34) PG MCHC 33.2 (30-36) % RDW 13.1 (11.6-14.8) % Plt Count 243 (150-400) X10^3/uL Neut % (Auto) 73.9 (50-75) % Lymph % (Auto) 19.4 L (25-40) % [place] % (Auto) 5.5 (3-14) % Eos % (Auto) 0.9 L (2-4) % Baso % (Auto) 0.3 (0-2) % Neut # (Auto) 5600 (4423-1185) /uL Lymph # (Auto) 1500 (2942-8205) /uL [place] # (Auto) 400 (0-900) /uL Eos # (Auto) 100 (0-450) /uL Baso # (Auto) 0 (0-100) /uL Sodium 139 (137-145) mmol/L Potassium 3.9 (3.4-5.1) mmol/L Chloride 105 (98-107) mmol/L Carbon Dioxide 25 (22-32) mmol/L BUN 10 (7-17) mg/dL Creatinine 0.70 (0.52-1.04) mg/dL Estimated GFR > 60.0 (>60) mL/min BUN/Creatinine Ratio 14.3 (6-22) Glucose 89 (70-100) mg/dL Lactate (0.7-2.1) mmol/L Calcium 9.2 (8.4-10.2) mg/dL Magnesium 1.8 (1.6-2.3) mg/dL Total Creatine Kinase 39 (30-135) U/L CK-MB (CK-2) TNP CK-MB (CK-2) Rel Index TNP Troponin I < 0.012 (0.01-0.034) ng/mL B-Natriuretic Peptide < 100 (<100) Procalcitonin < 0.05 (<0.5) ng/mL 08/11/18 08/11/18 Range/Units 12:40 15:40 WBC (4.5-11.0) X10^3/uL RBC (4.0-5.2) X10^6/uL Hgb (12.0-16.0) g/dL Hct (36-46) % MCV (80-100) fL MCH (26-34) PG MCHC (30-36) % RDW (11.6-14.8) % Plt Count (150-400) X10^3/uL Neut % (Auto) (50-75) % Lymph % (Auto) (25-40) % [place] % (Auto) (3-14) % Eos % (Auto) (2-4) % Baso % (Auto) (0-2) % Neut # (Auto) (3291-1985) /uL Lymph # (Auto) (6085-0196) /uL [place] # (Auto) (0-900) /uL Eos # (Auto) (0-450) /uL Baso # (Auto) (0-100) /uL Sodium (137-145) mmol/L Potassium (3.4-5.1) mmol/L Chloride (98-107) mmol/L Carbon Dioxide (22-32) mmol/L BUN (7-17) mg/dL Creatinine (0.52-1.04) mg/dL Estimated GFR (>60) mL/min BUN/Creatinine Ratio (6-22) Glucose (70-100) mg/dL Lactate 0.8 (0.7-2.1) mmol/L Calcium (8.4-10.2) mg/dL Magnesium (1.6-2.3) mg/dL Total Creatine Kinase 30 (30-135) U/L CK-MB (CK-2) TNP CK-MB (CK-2) Rel Index TNP Troponin I < 0.012 (0.01-0.034) ng/mL B-Natriuretic Peptide (<100) Procalcitonin (<0.5) ng/mL Discharge Plan Departure Patient Disposition: Home Clinical Impression: Mass Discharge Date/Time: 08/11/18 20:04 Interventions: ED Discharge Assessment Last Done: 08/11/18 20:04 Instructions: DI for Atypical Chest Pain Activity Restrictions/Additional Instructions: Please follow up with her primary care provider tomorrow as we discussed. We have given you a copy of your CT results. This mass needs to be worked up further. Please come back to the emergency department for any acute concerns. This includes chest pain, shortness of breath etc. Please also follow up with GI as well. Prescriptions: No Action gabapentin [Neurontin] 300 mg capsule 300 mg PO TID Qty: 180 RF: 3 duloxetine 20 mg capsule,delayed release(DR/EC) 20 mg PO DAILY RF: 0 pantoprazole 20 mg Tablet,Delayed Release (Dr/Ec) 40 mg PO DAILY RF: 0 atorvastatin 10 mg tablet 10 mg PO BEDTIME RF: 0 valacyclovir 1 gram tablet 1 g PO DAILY RF: 0 meloxicam 15 mg tablet 15 mg PO DAILY RF: 0 hyoscyamine sulfate 0.125 mg tablet, sublingual 0.125 mg Sublingual Q6H PRN (Reason: Spasms) RF: 0 lisinopril-hydrochlorothiazide 20-12.5 mg tablet 1 tab PO DAILY RF: 0 sucralfate 1 gram tablet 1 g PO QID RF: 0 duloxetine 30 mg Capsule,Delayed Release(Dr/Ec) 30 mg PO DAILY RF: 0 biotin 1 cap PO DAILY RF: 0 Referrals: Ish Colmenares MD [Primary Care Provider] - <Marilin Pemberton DO - Last Filed: 08/12/18 07:36> Cosign ED Attending Cosignature Attestation: I was immediately available in the department for consultation. This documentation has been reviewed and I agree with assessment and plan. Supervised by Marilin Pemberton DO
== END 2018-08-11 20:04 | disposition home or self-care (01) ==
PROVIDERS: Emergency Medicine; Emergency Provider Nurse Practitioner Family; PCP Student in an Organized Health Care Education/Training Program
DX: R22.9 Localized swelling, mass and lump, unspecified (principal); R07.89 Other chest pain
CPT/HCPCS: 36415; 36591; 71046; 71250; 71260; 80048; 82550; 83605; 83735; 83880; 84145; 84484; 85025; 93005; 93010; 96374; 99283; 99285; C9113; Q9967

== ENCOUNTER 2019-09-25 09:01 | Emergency (ER) | payer OTHER, SELFPAY ==
[2018-01-30 09:28] VITALS: BMI 32.5
[2019-09-25 09:05] VITALS: BP 127/73; PULSE 83; RESP 16; TEMP 36.8; O2SAT 95; BMI 36.3
--- NOTE | 2019-09-25 09:09 | DI.RAD.S_ITS ---
PROCEDURE: XR RIBS LT MIN 3V W CXR1V INDICATIONS: fall in bathtub TECHNIQUE: 2 views of the left ribs were acquired, along with a single view chest. COMPARISON: None. FINDINGS: Surgical changes and devices: None. Bones and chest wall: No fractures or dislocations. No suspicious bony lesions. Overlying soft tissues appear unremarkable. Lungs and pleura: No pleural effusions or pneumothorax. Lungs appear clear. Mediastinum: Mediastinal contours appear normal. Heart size is normal. IMPRESSION: Relatively light film technique, no definite trauma found. Please note that a rib fracture that is not significantly displaced may not become visible until periosteal reaction developed. If unusual pain persists followup by repeat rib plain films in approximately 5 days may be warranted. Dictated by: Yosef Ballard M.D. on 09/25/2019 at 9:40 Approved by: Yosef Ballard M.D. on 09/25/2019 at 9:49
--- NOTE | 2019-09-25 09:25 | ED.FALL ---
HPI - Fall General Chief Complaint: Fall Stated Complaint: FELL YESTURDAY LEFT WRIST PAIN Time Seen by Provider: 09/25/19 09:12 Source: patient Mode of arrival: Ambulatory History of Present Illness HPI Narrative: CC: The patient states that she slipped and fell in the bathtub yesterday injuring her left lower ribs. HPI: The patient is a 59-year-old female who states that she was in the shower last night slipped and fell as she opened her neck and was reaching forward and landed on her left ribs. She develops severe pain and discomfort in her left ribs. She was unable to sleep all night. She has had severe sharp pain and discomfort. She is only short of breath with the pain and discomfort. It hurts to deep breathe and to move. She has had no coughing. She has a history of tennis elbow for which she is wearing a a brace on her left wrist. Only she denies any loss of consciousness have but has been lightheaded with the pain. She states that she only has shortness of breath with the chest pain but no shortness of breath otherwise. She did not lose consciousness. She denies any headache head injury neck pain or back pain. The pain and discomfort is sharp and 10/10 in intensity when she moves. She denies a history of diabetes mellitus congestive heart failure myocardial infarction COPD or asthma. She admits to a history of hypertension. She does not smoke cigarettes arm drinks alcohol occasionally she had 1 drink after she fell last night which did not help the pain and discomfort. She periodically smokes marijuana and uses CBD oil for pain and discomfort in her arm elbow and arm. Related Data Home Medications Medication Instructions Recorded Confirmed biotin 1 cap PO DAILY 08/11/18 09/23/19 Respironics Dreamstation CPAP #1 ea 11/18/18 09/23/19 coenzyme Q10-red yeast rice 60 cap PO 09/23/19 09/23/19 mg-600 mg capsule Previous Rx's Medication Instructions Recorded acyclovir 400 mg tablet 400 mg PO TID PRN #20 tab 05/28/19 atorvastatin 10 mg tablet 10 mg PO BEDTIME #90 tab 05/28/19 duloxetine 20 mg capsule,delayed 20 mg PO DAILY #90 cap 05/28/19 release duloxetine 30 mg capsule,delayed 30 mg PO DAILY #90 cap 05/28/19 release eletriptan 40 mg tablet 40 mg PO .COMPLEX #14 tab 05/28/19 estradiol 1 gram VAG DAILY #42.5 gram 05/28/19 gabapentin 300 mg capsule 1,200 mg PO BEDTIME #360 cap 05/28/19 lisinopril 20 1 tab PO DAILY #90 tab 05/28/19 mg-hydrochlorothiazide 12.5 mg tablet ondansetron 4 mg disintegrating 4 mg PO Q6H PRN #30 tab 05/28/19 tablet pantoprazole 20 mg tablet,delayed 40 mg PO BID #360 tab 05/28/19 release valacyclovir 1 gram tablet 1,000 mg PO DAILY #90 tab 05/28/19 cyclobenzaprine 10 mg tablet 10 mg PO BID #60 tab 08/17/19 diclofenac sodium 1 % topical gel 2 gram TOP QID PRN #100 gram 09/23/19 cyclobenzaprine 10 mg PO TID PRN #15 tab 09/25/19 lidocaine 1 patch TOP DAILY #10 each 09/25/19 ondansetron HCl [Zofran] 4 mg PO Q6H PRN #12 tab 09/25/19 oxycodone-acetaminophen [Percocet] 1 tab PO Q6H PRN #12 tab 09/25/19 Allergies Allergy/AdvReac Type Severity Reaction Status Date / Time NSAIDS (Non-Steroidal AdvReac Intermediate GI feels Verified 09/25/19 09:11 Anti-Inflamma like I've been punched in the stomach Review of Systems Review of Systems Narrative: REVIEW OF SYSTEMS: CONSTITUTIONAL: Denies any fever chills or sweats. NEUROLOGICAL: She denies any head injury neck injury headache numbness tingling paresthesias anesthesia is or paresis. EENT: She has had no change in vision sore throat or trouble swallowing. CARDIO-PULMONARY: She has lower left lateral anterior rib pain on the left side that is sharp and stabbing. The pain feels much better when she is wearing her bra with pressure. She denies any shortness of breath cough palpitations or dizziness otherwise. GASTROINTESTINAL: No abdominal pain nausea vomiting diarrhea incontinence of stool GENITAL URINARY: No urinary symptoms or incontinence of urine MUSCULOSKELETAL/ RHEUMATOLOGICAL: No back pain chest left lower rib pain as previously described. Patient History Medical History Actinic keratosis (Resolved) Anxiety (Chronic 2000) Arthritis (Chronic) BCC (basal cell carcinoma of skin) (Acute) Chicken pox (Resolved) Chickenpox (Resolved Unknown) Depression (Acute) Eczema (Chronic 2012) Fatigue (Chronic) Fibroids (Resolved) Fibromyalgia (Chronic 2002) Foot pain (Resolved) Generalized headaches (Chronic) Hayfever (Chronic) Herpes (Chronic 1979) HSV (herpes simplex virus) anogenital infection (Acute) Hyperlipidemia (Chronic) Hypertension (Chronic) Hypothyroidism (Chronic) Knee pain, right (Chronic) Mediastinal mass (Acute) Memory change (Acute) Migraines (Chronic) Obesity (BMI 35.0-39.9 without comorbidity) (Acute) Postmenopausal (Resolved) Prediabetes (Acute) Recurrent UTI (Acute) Rheumatoid arthritis (Chronic) Rosacea (Chronic) Shoulder pain (Resolved 2014) Skin cancer (Resolved) Urinary incontinence (Chronic 2004) Surgical History Anesthesia (Resolved) History of colonoscopy (Resolved 2005) History of colonoscopy with polypectomy (Resolved 06/04/17) History of esophagogastroduodenoscopy (EGD) (Resolved 06/04/17) History of esophagogastroduodenoscopy (EGD) (Resolved 09/30/17) History of partial hysterectomy (Resolved) History of removal of laparoscopic gastric banding device (Resolved 01/08/18) History of right knee surgery (Resolved 03/12/18) History of total right knee replacement (TKR) (Resolved 01/30/18) Hx of laparoscopic gastric banding (Resolved) Status post delivery (Resolved 1988) Status post knee surgery (Resolved 2002) Social History household members: spouse Smoking Status: Former smoker alcohol intake: current (2-3 glasses weekly) substance use type: does not use Smoking Status: Former smoker alcohol intake frequency: a few times a week Substance Use Type: does not use and other Exam Narrative Exam Narrative: PHYSICAL EXAM: CONSTITUTIONAL: Awake, Alert, Oriented, Coherent, Cooperative in moderate distress standing holding her left anterior lateral ribs. The patient states that it hurts to sit down HEAD: AT/NC EENT: PERRL, FROM of eyes, no discharge, no nystagmus NECK: Supple, no obvious JVD, Trachea is midline without stridor, no palpable LN. SPINE: Palpationof the cervical, Thoracic, Lumbar or Sacral spine reveals no gross deformity or tenderness. No CVA tenderness. THORAX: The patient's left lower lateral chest wall underneath her breast is exquisitely tender arm to palpation there is no crepitus. The ribs are exquisitely tender. LUNGS: Clear, symmetrical breath sounds without respiratory distress. The patient has splinting respirations on the the left. HEART: Normal heart tones, regular rhythm and rate without murmur. ABDOMEN: Soft, nontender except at the left costal margin with mild tenderness arm there is no guarding or rebound no palpable spleen or organomegaly EXTREMITIES: No edema, deformity, tenderness or cyanosis. SKIN: No rash, bruising, petechiae or purpura. NEURO: Awake, alert, oriented, conversive, cranial nerves II-XII are symmetrical , moves all 4 extremities and is ambulatory. Initial Vital Signs Initial Vital Signs: Vital Signs Temperature 98.3 F 09/25/19 09:05 Pulse Rate 83 09/25/19 09:05 Respiratory Rate 16 09/25/19 09:05 Blood Pressure 127/73 09/25/19 09:05 Pulse Oximetry 95 09/25/19 09:05 Course Course Course Narrative: 0951: Chest x-ray and left rib x-rays revealed: Relatively light film technique, no definite trauma found. Please note that a rib fracture that is not significantly displaced may not become visible until periosteal reactions developed. If unusual pain persists follow-up by repeat rib plain films in approximately 5 days may be warranted. No fractures or dislocations or suspicious bony lesions were noted on the patient's x-rays. Lungs revealed no pleural effusions or pneumothorax. The lungs were clear and symmetrical. Mediastinum appeared normal. Orders Ordered: ED Orders 09/25/19 09:50 Basic Metabolic Panel Stat Complete Blood Count AUTO DIFF Stat Lipase Stat Discontinued Medications Diphenhydramine HCl (Benadryl) 25 mg IV NOW ONE Stop: 09/25/19 09:37 Last Admin: 09/25/19 09:57 Dose: 25 mg Documented by: ABRAHAN Lidocaine (Lidoderm) 1 each TOP NOW ONE Stop: 09/25/19 10:07 Last Admin: 09/25/19 10:33 Dose: 1 each Documented by: ABRAHAN Morphine Sulfate (Morphine) 4 mg IV NOW ONE Stop: 09/25/19 09:37 Last Admin: 09/25/19 09:57 Dose: 4 mg Documented by: ABRAHAN Ondansetron HCl (Zofran) 4 mg IV NOW ONE Stop: 09/25/19 09:37 Last Admin: 09/25/19 09:56 Dose: 4 mg Documented by: ABRAHAN Vital Signs Vital signs: Vital Signs - 8 hr 09/25/19 09:05 Temperature 98.3 F Pulse Rate 83 Respiratory Rate 16 Blood Pressure 127/73 Pulse Oximetry 95 MDM - Fall Lab Data Result diagrams: 09/25/19 09:50 09/25/19 09:50 Labs: Lab Results 09/25/19 09/25/19 Range/Units 09:50 09:50 WBC 5.8 (4.5-11.0) X10^3/uL RBC 4.46 (4.0-5.2) X10^6/uL Hgb 13.4 (12.0-16.0) g/dL Hct 39.3 (36-46) % MCV 88.1 (80-100) fL MCH 30.0 (26-34) PG MCHC 34.1 (30-36) % RDW 13.4 (11.6-14.8) % Plt Count 274 (150-400) X10^3/uL Neut % (Auto) 58.4 (50-75) % Lymph % (Auto) 32.6 (25-40) % Dawson % (Auto) 7.3 (3-14) % Eos % (Auto) 0.9 L (2-4) % Baso % (Auto) 0.8 (0-2) % Neut # (Auto) 3400 (4261-8817) /uL Lymph # (Auto) 1900 (3536-9128) /uL Dawson # (Auto) 400 (0-900) /uL Eos # (Auto) 100 (0-450) /uL Baso # (Auto) 0 (0-100) /uL Sodium 135 L (137-145) mmol/L Potassium 4.0 (3.4-5.1) mmol/L Chloride 102 (98-107) mmol/L Carbon Dioxide 28 (22-32) mmol/L BUN 17 (7-17) mg/dL Creatinine 0.76 (0.52-1.04) mg/dL Estimated GFR > 60.0 (>60) mL/min BUN/Creatinine Ratio 22.4 H (6-22) Glucose 95 (70-100) mg/dL Calcium 9.4 (8.4-10.2) mg/dL Lipase 74 (23-300) U/L Discharge Plan Departure Patient Disposition: Home Clinical Impression: Rib pain on left side Fall Qualifiers: Encounter type: initial encounter Qualified Code(s): W19.XXXA - Unspecified fall, initial encounter Contusion of chest wall Qualifiers: Encounter type: initial encounter Laterality: left Qualified Code(s): S20.212A - Contusion of left front wall of thorax, initial encounter Discharge Date/Time: 09/25/19 10:47 Instructions: DI for Rib Fracture, DI for Contusion, DI for Rib Contusion Activity Restrictions/Additional Instructions: 1. Follow-up with your primary care physician for continued pain management. 2. Return to the emergency department if you develop worsening chest pain, shortness of breath, dizziness, lightheadedness, passing out, racing of your heart, abdominal pain, persistent nausea or vomiting or proceed to the nearest emergency department. 3. Cyclobenzaprine 10 mg 3 times a day as needed for muscle spasms and cramps. 4. Percocet 10/325 1 tablet p.o. 3 times a day as needed for severe pain and discomfort. 5. If the pain persists you need to return in 3-5 days for repeat chest x-ray and or CT of the chest to evaluate your rib and chest wall pain. 6. CLINICALLY you have left-sided rib fractures with chest wall contusion. However, your chest x-ray and rib x-rays do not show any fractures or bruising of the lungs. It is very important that if you develop increasing shortness of breath, worsening pain, fever, you need to return to the emergency department for pain and discomfort. 7. To the area of your rib pain you need to apply a lidocaine patch as prescribed. Prescriptions: New cyclobenzaprine 10 mg tablet 10 mg PO TID PRN (Reason: muscle spasm) Qty: 15 RF: 0 oxycodone-acetaminophen [Percocet] 10-325 mg tablet 1 tab PO Q6H PRN (Reason: pain) Qty: 12 RF: 0 ondansetron HCl [Zofran] 4 mg tablet 4 mg PO Q6H PRN (Reason: nausea and vomiting) Qty: 12 RF: 0 lidocaine 5 % adhesive patch,medicated 1 patch TOP DAILY Qty: 10 RF: 0 No Action (DME) Respironics Dreamstation CPAP Qty: 1 RF: 0 atorvastatin 10 mg tablet 10 mg PO BEDTIME Qty: 90 RF: 3 duloxetine 20 mg capsule,delayed release(DR/EC) 20 mg PO DAILY Qty: 90 RF: 3 duloxetine 30 mg capsule,delayed release(DR/EC) 30 mg PO DAILY Qty: 90 RF: 3 eletriptan [Relpax] 40 mg tablet 40 mg PO .COMPLEX Qty: 14 RF: 3 estradiol 0.01 % (0.1 mg/gram) cream 1 gram VAG DAILY Qty: 42.5 RF: 11 gabapentin [Neurontin] 300 mg capsule 1,200 mg PO BEDTIME Qty: 360 RF: 3 lisinopril-hydrochlorothiazide 20-12.5 mg tablet 1 tab PO DAILY Qty: 90 RF: 3 ondansetron 4 mg tablet,disintegrating 4 mg PO Q6H PRN (Reason: nausea and vomiting) Qty: 30 RF: 6 pantoprazole 20 mg tablet,delayed release (DR/EC) 40 mg PO BID Qty: 360 RF: 3 valacyclovir 1 gram tablet 1,000 mg PO DAILY Qty: 90 RF: 3 acyclovir 400 mg tablet 400 mg PO TID PRN (Reason: HSV outbreak) Qty: 20 RF: 3 cyclobenzaprine 10 mg tablet 10 mg PO BID Qty: 60 RF: 0 co Q10-red yeast rice 60-600 mg capsule PO RF: 0 diclofenac sodium [Voltaren] 1 % gel 2 gram TOP QID PRN (Reason: pain, mild) Qty: 100 RF: 2 biotin 1 cap PO DAILY RF: 0 Referrals: Eva Tadeo ARNP [Primary Care Provider] -
[2019-09-25] MEDS: ONDANSETRON 4 MG/2 ML INJ IV (09:56)
[2019-09-25 09:57] LABS: Add Manual Diff / Slide Review NO; Basophils Absolute Auto 0 /uL (0-100); Basophils Percent Auto 0.8 % (0-2); Eosinophils Absolute Auto 100 /uL (0-450); Eosinophils Percent Auto 0.9 % (2-4); Hematocrit 39.3 % (36-46); Hemoglobin 13.4 g/dL (12.0-16.0); Lymphocytes Absolute Auto 1900 /uL (1100-4500); Lymphocytes Percent Auto 32.6 % (25-40); Mean Corpuscular HGB Conc 34.1 % (30-36); Mean Corpuscular Volume 88.1 fL (80-100); Monocytes Absolute Auto 400 /uL (0-900); Monocytes Percent Auto 7.3 % (3-14); Neutrophils Absolute Auto 3400 /uL (1500-7000); Neutrophils Percent Auto 58.4 % (50-75); Platelet Count 274 X10^3/uL (150-400); Red Blood Cell Count 4.46 X10^6/uL (4.0-5.2); Red Cell Distribution Width 13.4 % (11.6-14.8); White Blood Cell Count 5.8 X10^3/uL (4.5-11.0)
[2019-09-25] MEDS: MORPHINE 4 MG/ML INJ IV (09:57)
[2019-09-25] MEDS: diphenhydrAMINE 50 MG/ML VIAL 25 MG IV (09:57)
[2019-09-25 10:13] LABS: BUN Creatinine Ratio 22.4 (6-22); Blood Urea Nitrogen 17 mg/dL (7-17); Calcium 9.4 mg/dL (8.4-10.2); Carbon Dioxide 28 mmol/L (22-32); Chloride 102 mmol/L (98-107); Estimated Glomerular Filt Rate > 60.0 mL/min (>60); Glucose 95 mg/dL (70-100); HEMOLYSIS 16 (0-50); Lipase 74 U/L (23-300); Sodium 135 mmol/L (137-145)
[2019-09-25] MEDS: LIDOCAINE PATCH 1 EACH ADH..PATCH TOP (10:33)
[2019-09-25 10:44] VITALS: BP 125/65; PULSE 66; RESP 18; O2SAT 98
== END 2019-09-25 10:47 | disposition home or self-care (01) ==
PROVIDERS: Emergency Provider Emergency Medicine; PCP Nurse Practitioner
DX: R07.81 Pleurodynia (principal); S20.212A Contusion of left front wall of thorax, initial encounter; W18.2XXA Fall in (into) shower or empty bathtub, initial encounter
CPT/HCPCS: 36415; 71101; 80048; 83690; 85025; 96374; 96375; 99284; J1200; J2270; J2405

== ENCOUNTER → 2019-11-20 14:21 | Outpatient (CLI) | payer OTHER, SELFPAY ==
[2018-01-30 09:28] VITALS: BMI 32.5
--- NOTE | 2019-11-20 14:23 | DI.US.S_ITS ---
ULTRASOUND OF LEFT BREAST: 11/20/2019 CLINICAL: Focal left breast pain. Comparison is made to exams dated: 11/20/2019 mammogram - [facility], 07/29/2017 mammogram, and 05/21/2007 mammogram - [facility]. Ultrasound of the left breast was performed on the area of interest. Art scale images of the real-time examination were reviewed. IMPRESSION: NEGATIVE There is no sonographic evidence of malignancy. There is no mammographic or sonographic abnormality seen in the left breast to correspond with the pain in the upper outer quadrant, however, clinical followup is recommended. A 1 year screening mammogram is recommended. This exam was interpreted at Station ID: [id number]. Electronically Signed By: Lucero carmona/:11/20/2019 15:38:45 letter sent: Clinical Evaluation Ultrasound BI-RADS: 1 Negative
--- NOTE | 2019-11-20 14:23 | DI.MG.S_ITS ---
BILATERAL DIGITAL DIAGNOSTIC MAMMOGRAM 3D/2D: 11/20/2019 CLINICAL: Left breast pain. Comparison is made to exams dated: 07/29/2017 mammogram and 05/21/2007 mammogram - [facility]. The tissue of both breasts is predominantly fatty. No significant masses, calcifications, or other findings are seen in either breast. IMPRESSION: INCOMPLETE: NEEDS ADDITIONAL IMAGING EVALUATION There is no mammographic abnormality seen in the left breast to correspond with the pain, however, targeted ultrasound of the left breast is recommended and will be performed immediately following this exam. This exam was interpreted at Station ID: [id number]. NOTE: For mammograms, a report in lay terms will be sent to the patient. Approximately 15% of breast malignancies will not be visualized mammographically. In the management of a palpable breast mass, a negative mammogram must not discourage biopsy of a clinically suspicious lesion. Electronically Signed By: Lucero Barrera M.D. lk/:11/20/2019 14:55:33 ACR BI-RADS Category 0: Incomplete [id number]
== END ==
PROVIDERS: PCP Nurse Practitioner; Referring Provider Nurse Practitioner; Visit Provider Nurse Practitioner
DX: R92.8 Other abnormal and inconclusive findings on diagnostic imaging of breast (principal); N64.4 Mastodynia
CPT/HCPCS: 76642; 77066; G0279

== ENCOUNTER 2019-12-02 18:38 | Emergency (ER) | payer OTHER, SELFPAY ==
[2018-01-30 09:28] VITALS: BMI 32.5
[2019-12-02 18:49] VITALS: BP 131/77; PULSE 89; RESP 16; TEMP 36.4; O2SAT 100; BMI 35.4
--- NOTE | 2019-12-02 19:10 | ED_ITS ---
HPI - Headache General Chief Complaint: Headache Stated Complaint: migraine Time Seen by Provider: 12/02/19 19:10 History of Present Illness HPI Narrative: 59-year-old woman with a history of migraine headache, hyperlipidemia fibromyalgia presents with 18 hours of severe migraine. She st ates that it is very similar to all of her previous ones. This 1 seems to be focused around the left side of her face. This morning she took Relpax and oral Toradol as well as Claritin with minimal relief. She has continued to vomit through the day and is getting progressively worse. She denies fevers chills, cough, chest pain, palpitations, dyspnea. Related Data Home Medications Medication Instructions Recorded Confirmed biotin 1 cap PO DAILY 08/11/18 09/28/19 Respironics Dreamstation CPAP #1 ea 11/18/18 09/28/19 coenzyme Q10-red yeast rice 60 cap PO 09/23/19 09/28/19 mg-600 mg capsule meloxicam 15 mg tablet 15 mg PO DAILY 09/28/19 09/28/19 Previous Rx's Medication Instructions Recorded acyclovir 400 mg tablet 400 mg PO TID PRN #20 tab 05/28/19 atorvastatin 10 mg tablet 10 mg PO BEDTIME #90 tab 05/28/19 duloxetine 20 mg capsule,delayed 20 mg PO DAILY #90 cap 05/28/19 release duloxetine 30 mg capsule,delayed 30 mg PO DAILY #90 cap 05/28/19 release eletriptan 40 mg tablet 40 mg PO .COMPLEX #14 tab 05/28/19 estradiol 1 gram VAG DAILY #42.5 gram 05/28/19 gabapentin 300 mg capsule 1,200 mg PO BEDTIME #360 cap 05/28/19 lisinopril 20 1 tab PO DAILY #90 tab 05/28/19 mg-hydrochlorothiazide 12.5 mg tablet valacyclovir 1 gram tablet 1,000 mg PO DAILY #90 tab 05/28/19 cyclobenzaprine 10 mg tablet 10 mg PO BID #60 tab 08/17/19 diclofenac sodium 1 % topical gel 2 gram TOP QID PRN #100 gram 09/23/19 cyclobenzaprine 10 mg PO TID PRN #15 tab 09/25/19 lidocaine 1 patch TOP DAILY #10 each 09/25/19 ondansetron HCl [Zofran] 4 mg PO Q6H PRN #12 tab 09/25/19 hydrocodone 5 mg-acetaminophen 325 1 tab PO Q8H PRN #21 tab 09/28/19 mg tablet lidocaine 5 % topical patch 2 patch TOP DAILY #30 each 10/16/19 pantoprazole 20 mg tablet,delayed 40 mg PO BID #360 tab 10/28/19 release Allergies Allergy/AdvReac Type Severity Reaction Status Date / Time acetaminophen [From Percocet] Allergy ITCHING Verified 09/28/19 12:38 oxycodone [From Percocet] Allergy ITCHING Verified 09/28/19 12:38 NSAIDS (Non-Steroidal AdvReac Intermediate GI feels Verified 09/28/19 12:22 Anti-Inflamma like I've been punched in the stomach Review of Systems Review of Systems Narrative: Pertinent positive and negative findings as per HPI Remainder of review of systems is otherwise unremarkable for Constitutional: weakness ENT: No sore throat, neck pain, ear pain CV: Chest pain, palpitations, dyspnea on exertion Respiratory: Cough, wheeze, dyspnea : Dysuria, hematuria, flank pain MS: Muscle weakness, numbness, joint swelling or warmth Skin: Rashes, nonhealing lesions Neuro: Syncope, dizziness, tingling Patient History Medical History Actinic keratosis (Resolved) Anxiety (Chronic 2000) Arthritis (Chronic) BCC (basal cell carcinoma of skin) (Acute) Chicken pox (Resolved) Chickenpox (Resolved Unknown) Depression (Acute) Eczema (Chronic 2012) Fatigue (Chronic) Fibroids (Resolved) Fibromyalgia (Chronic 2002) Foot pain (Resolved) Generalized headaches (Chronic) Hayfever (Chronic) Herpes (Chronic 1979) HSV (herpes simplex virus) anogenital infection (Acute) Hyperlipidemia (Chronic) Hypertension (Chronic) Hypothyroidism (Chronic) Knee pain, right (Chronic) Mediastinal mass (Acute) Memory change (Acute) Migraines (Chronic) Obesity (BMI 35.0-39.9 without comorbidity) (Acute) Postmenopausal (Resolved) Prediabetes (Acute) Recurrent UTI (Acute) Rheumatoid arthritis (Chronic) Rosacea (Chronic) Shoulder pain (Resolved 2014) Skin cancer (Resolved) Urinary incontinence (Chronic 2004) Surgical History Anesthesia (Resolved) History of colonoscopy (Resolved 2005) History of colonoscopy with polypectomy (Resolved 06/04/17) History of esophagogastroduodenoscopy (EGD) (Resolved 06/04/17) History of esophagogastroduodenoscopy (EGD) (Resolved 09/30/17) History of partial hysterectomy (Resolved) History of removal of laparoscopic gastric banding device (Resolved 01/08/18) History of right knee surgery (Resolved 03/12/18) History of total right knee replacement (TKR) (Resolved 01/30/18) Hx of laparoscopic gastric banding (Resolved) Status post delivery (Resolved 1988) Status post knee surgery (Resolved 2002) Family History Father Age: 86 Essential hypertension Hyperlipidemia Sister Age: 60 Essential hypertension Grandfather Breast cancer Mother No problems noted. Social History household members: spouse Smoking Status: Former smoker alcohol intake: current (2-3 glasses weekly) substance use type: does not use Smoking Status: Former smoker alcohol intake frequency: holidays/special occasions only Substance Use Type: does not use and other Exam Narrative Exam Narrative: General: Healthy appearing, in mild distress, sensitive the light Able to give a complete and coherent history. Well-nourished well- developed HEENT: Moist mucous membranes, mildly injected sclera bilaterally with reactive pupils, Neck: No JVD, supple Respiratory: Lungs are clear to auscultation, no wheezing no rales no rhonchi. Full and symmetrical air movement Cardiac: Regular rate and rhythm no murmurs no bruits Abdomen: Soft nontender good bowel tones, no flank pain Skin: Warm and dry, no rashes Neurologic: Grossly neurologically intact with no obvious asymmetries or abnormalities Extremities: No trauma, well perfused Psych: Cooperative, appropriate insight and affect Initial Vital Signs Initial Vital Signs: Vital Signs Temperature 97.6 F 12/02/19 18:49 Pulse Rate 89 12/02/19 18:49 Respiratory Rate 16 12/02/19 18:49 Blood Pressure 131/77 12/02/19 18:49 Pulse Oximetry 100 12/02/19 18:49 Course Orders Ordered: Discontinued Medications Dexamethasone (Decadron) 10 mg IV NOW ONE Stop: 12/02/19 19:23 Last Admin: 12/02/19 19:55 Dose: 10 mg Documented by: PIOTR Diphenhydramine HCl (Benadryl) 25 mg IV NOW ONE Stop: 12/02/19 19:23 Last Admin: 12/02/19 19:47 Dose: 25 mg Documented by: PIOTR Sodium Chloride (Normal Saline 0.9%) 1,000 mls @ 1,000 mls/hr IV BOLUS ONE Stop: 12/02/19 20:21 Last Admin: 12/02/19 19:58 Dose: 1,000 mls/hr Documented by: PIOTR Ketorolac Tromethamine (Toradol) 15 mg IV NOW ONE Stop: 12/02/19 19:23 Last Admin: 12/02/19 19:43 Dose: 15 mg Documented by: PIOTR Metoclopramide HCl (Reglan) 10 mg IV NOW ONE Stop: 12/02/19 19:23 Last Admin: 12/02/19 19:40 Dose: 10 mg Documented by: PIOTR Prochlorperazine (Compazine) 10 mg IV NOW ONE Stop: 12/02/19 19:23 Last Admin: 12/02/19 19:45 Dose: 10 mg Documented by: PIOTR Vital Signs Vital signs: Vital Signs - 8 hr 12/02/19 18:49 Temperature 97.6 F Pulse Rate 89 Respiratory Rate 16 Blood Pressure 131/77 Pulse Oximetry 100 MDM - Headache MDM Narrative Medical decision making narrative: Migraine headache that feels like her usual migraines. Resolved with fluid, Toradol, Compazine, Benadryl and Decadron. Safe for home discharge Discharge Plan Departure Patient Disposition: Home Clinical Impression: Migraine Qualifiers: Migraine type: without aura Status migrainosus presence: without status migrainosus Intractability: not intractable Qualified Code(s): G43.009 - Migraine without aura, not intractable, without status migrainosus Instructions: DI for Migraine Activity Restrictions/Additional Instructions: I hope you are feeling better and that tomorrow goes well for you. Prescriptions: No Action (DME) Respironics Dreamstation CPAP Qty: 1 RF: 0 atorvastatin 10 mg tablet 10 mg PO BEDTIME Qty: 90 RF: 3 duloxetine 20 mg capsule,delayed release(DR/EC) 20 mg PO DAILY Qty: 90 RF: 3 duloxetine 30 mg capsule,delayed release(DR/EC) 30 mg PO DAILY Qty: 90 RF: 3 eletriptan [Relpax] 40 mg tablet 40 mg PO .COMPLEX Qty: 14 RF: 3 estradiol 0.01 % (0.1 mg/gram) cream 1 gram VAG DAILY Qty: 42.5 RF: 11 gabapentin [Neurontin] 300 mg capsule 1,200 mg PO BEDTIME Qty: 360 RF: 3 lisinopril-hydrochlorothiazide 20-12.5 mg tablet 1 tab PO DAILY Qty: 90 RF: 3 valacyclovir 1 gram tablet 1,000 mg PO DAILY Qty: 90 RF: 3 acyclovir 400 mg tablet 400 mg PO TID PRN (Reason: HSV outbreak) Qty: 20 RF: 3 cyclobenzaprine 10 mg tablet 10 mg PO BID Qty: 60 RF: 0 lidocaine 5 % adhesive patch,medicated 2 patch TOP DAILY Qty: 30 RF: 2 pantoprazole 20 mg tablet,delayed release (DR/EC) 40 mg PO BID Qty: 360 RF: 3 co Q10-red yeast rice 60-600 mg capsule PO RF: 0 diclofenac sodium [Voltaren] 1 % gel 2 gram TOP QID PRN (Reason: pain, mild) Qty: 100 RF: 2 meloxicam 15 mg tablet 15 mg PO DAILY RF: 0 hydrocodone-acetaminophen 5-325 mg tablet 1 tab PO Q8H PRN (Reason: pain) Qty: 21 RF: 0 biotin 1 cap PO DAILY RF: 0 cyclobenzaprine 10 mg tablet 10 mg PO TID PRN (Reason: muscle spasm) Qty: 15 RF: 0 ondansetron HCl [Zofran] 4 mg tablet 4 mg PO Q6H PRN (Reason: nausea and vomiting) Qty: 12 RF: 0 lidocaine 5 % adhesive patch,medicated 1 patch TOP DAILY Qty: 10 RF: 0 Referrals: Eva Tadeo ARNP [Primary Care Provider] -
[2019-12-02] MEDS: METOCLOPRAMIDE 10 MG/2 ML INJ IV (19:40)
[2019-12-02] MEDS: KETOROLAC 60 MG/2 ML VIAL 15 MG IV (19:43)
[2019-12-02] MEDS: PROCHLORPERAZINE 10 MG/2 ML VIAL IV (19:45)
[2019-12-02] MEDS: diphenhydrAMINE 50 MG/ML VIAL 25 MG IV (19:47)
[2019-12-02] MEDS: DEXAMETHASONE 10 MG/ML VIAL IV (19:55)
[2019-12-02] MEDS: SODIUM CHLORIDE 0.9% 1,000 ML 1000 ML IV (19:58)
[2019-12-02 20:47] VITALS: BP 131/72; PULSE 77; RESP 16; O2SAT 99
== END 2019-12-02 20:49 | disposition home or self-care (01) ==
PROVIDERS: Emergency Provider Emergency Medicine; PCP Nurse Practitioner
DX: G43.009 Migraine without aura, not intractable, without status migrainosus (principal)
CPT/HCPCS: 36415; 96361; 96374; 96375; 99284; J0780; J1100; J1200; J1885; J2765

== ENCOUNTER → 2020-02-23 17:05 | Outpatient (CLI) | payer OTHER, SELFPAY ==
[2018-01-30 09:28] VITALS: BMI 32.5
[2020-02-25 13:32] LABS: Candida species Negative (Negative); Gardnerella vaginalis Negative (Negative); Trichomoas vaginalis Negative (Negative)
== END ==
PROVIDERS: PCP Nurse Practitioner; Visit Provider Obstetrics & Gynecology
DX: N76.0 Acute vaginitis (principal)
CPT/HCPCS: 87070; 87075; 87205; 87480; 87510; 87660

== ENCOUNTER → 2020-03-17 12:05 | Outpatient (CLI) | payer OTHER, SELFPAY ==
[2018-01-30 09:28] VITALS: BMI 32.5
--- NOTE | 2020-03-17 12:08 | DI.CT.S_ITS ---
PROCEDURE: CT PELVIS W CON INDICATIONS: L lower quad pain. Mass TECHNIQUE: After the administration of oral contrast and intravenous contrast, 5 mm thick sections acquired from the iliac crests to the symphysis. 5 mm thick coronal and sagittal reformats were acquired. For radiation dose reduction, the following was used: automated exposure control, adjustment of mA and/or kV according to patient size. COMPARISON: None. FINDINGS: Image quality: Excellent. Peritoneum and bowel: Contrast enhanced bowel loops demonstrate normal wall thickness and caliber. The appendix is thin walled and gas filled. No free fluid or air. Genitourinary: Bladder wall thickness is normal. Nodes and vessels: No iliac, pelvic, or inguinal adenopathy. Iliac vessels demonstrate normal size and enhancement. Bones: No suspicious bony lesions. Miscellaneous: No inguinal hernias. IMPRESSION: 1. No discrete mass visualized within the left labia or vagina. However, CT is less sensitive for soft tissue discrimination. If further characterization is warranted, gynecologic protocol MRI could be used. 2. No acute pelvic findings. Normal appendix. Dictated by: Lucero Barrera M.D. on 03/17/2020 at 15:00 Approved by: Lucero Barrera M.D. on 03/17/2020 at 15:11
[2020-03-17 16:19] LABS: Thyroid Stimulating Hormone 1.58 uIU/mL (0.47-4.68)
== END ==
PROVIDERS: PCP Nurse Practitioner; Referring Provider Obstetrics & Gynecology; Visit Provider Obstetrics & Gynecology
DX: R10.32 Left lower quadrant pain (principal); R61 Generalized hyperhidrosis
CPT/HCPCS: 36415; 72193; 84443; Q9967

== ENCOUNTER → 2020-04-13 08:09 | Outpatient (CLI) | payer OTHER, SELFPAY ==
[2018-01-30 09:28] VITALS: BMI 32.5
[2020-04-13 09:34] LABS: Alanine Aminotransferase 32 IU/L (<35); Albumin 4.1 g/dL (3.5-5.0); Albumin Globulin Ratio 1.3 (1.0-2.8); Alkaline Phosphatase 76 U/L (38-126); Aspartate Aminotransferase 25 IU/L (14-36); BUN Creatinine Ratio 27.3 (6-22); Bilirubin Total 0.5 mg/dL (0.2-1.3); Blood Urea Nitrogen 18 mg/dL (7-17); Calcium 9.3 mg/dL (8.4-10.2); Carbon Dioxide 30 mmol/L (22-32); Chloride 102 mmol/L (98-107); Cholesterol 166 mg/dL (140-199); Estimated Glomerular Filt Rate > 60.0 mL/min (>60); Globulin 3.2 g/dL (1.7-4.1); Glucose 95 mg/dL (70-100); HDL Cholesterol 47 mg/dL (40-60); HEMOLYSIS < 15 (0-50); LDL Cholesterol Calculated 95 mg/dL (<100); Sodium 136 mmol/L (137-145); Total Protein 7.3 g/dL (6.3-8.2); Triglycerides 122 mg/dL (35-150)
[2020-04-13 09:37] LABS: Microalbumin Urine Random < 0.6 mg/dL (0-1.6)
[2020-04-13 11:57] LABS: COVID19 -Nasal RAPID Negative (Negative)
== END ==
PROVIDERS: Surgery; PCP Nurse Practitioner; Referring Provider Nurse Practitioner; Visit Provider Nurse Practitioner
DX: E78.5 Hyperlipidemia, unspecified (principal); F32.9 Major depressive disorder, single episode, unspecified; I10 Essential (primary) hypertension; M06.9 Rheumatoid arthritis, unspecified; M79.7 Fibromyalgia; Z79.899 Other long term (current) drug therapy; Z20.828 Contact with and (suspected) exposure to other viral communicable diseases
CPT/HCPCS: 36415; 80053; 80061; 82043; 82570; 87635

== ENCOUNTER 2020-04-14 13:22 | Day surgery (SDC) | payer OTHER, SELFPAY ==
[2018-01-30 09:28] VITALS: BMI 32.5
[2020-04-14 13:47] VITALS: BP 103/63; PULSE 84; RESP 16; TEMP 37; O2SAT 96
[2020-04-14] MEDS: LACTATED RINGERS 1,000 ML 200 ML IV (13:54)
--- NOTE | 2020-04-14 14:41 | PM.HP.1 ---
History of Present Illness History of Present Illness Date Patient Seen: 04/14/20 Time Patient Seen: 14:42 Chief complaint: SCREENING COLONOSCOPY Narrative: The patient presents for colorectal sreening. She had previous colonoscopy 5 years ago outside institution significant for benign polyps. No personal or family history of colon cancer. On further history denies any recent gastrointestinal symptoms. No nausea, vomiting, abdominal pain, loss of appetite, unexplained weight loss, change in bowel habits, diarrhea, constipation, melena, hematochezia, or bright red blood per rectum. Patient History Medical History Actinic keratosis Anxiety (2000) Arthritis BCC (basal cell carcinoma of skin) Chicken pox Chickenpox (Unknown) Depression Eczema (2012) Fatigue Fibroids Fibromyalgia (2002) Foot pain Generalized headaches Hayfever Herpes (1979) HSV (herpes simplex virus) anogenital infection Hyperlipidemia Hypertension Hypothyroidism Knee pain, right Mediastinal mass Memory change Migraines Obesity (BMI 35.0-39.9 without comorbidity) Postmenopausal Prediabetes Recurrent UTI Rheumatoid arthritis Rosacea Shoulder pain (2014) Skin cancer Urinary incontinence (2004) Surgical History Anesthesia History of colonoscopy (2005) History of colonoscopy with polypectomy (06/04/17) History of esophagogastroduodenoscopy (EGD) (06/04/17) History of esophagogastroduodenoscopy (EGD) (09/30/17) History of partial hysterectomy History of removal of laparoscopic gastric banding device (01/08/18) History of right knee surgery (03/12/18) History of total right knee replacement (TKR) (01/30/18) Hx of laparoscopic gastric banding Status post delivery (1988) Status post knee surgery (2002) Family & Social History Family History Father Age: 87 Essential hypertension Hyperlipidemia Sister Age: 61 Essential hypertension Grandfather Breast cancer Mother No problems noted. Social History: household members spouse Tobacco & Substance use: Smoking Status Former smoker alcohol intake never alcohol intake frequency holiday/special occasion Substance Use Type other,does not use Meds Home Medications and Allergies Home Medications Medication Instructions Recorded Confirmed Type biotin 1 cap PO DAILY 08/11/18 02/23/20 History Respironics Dreamstation CPAP #1 ea 11/18/18 02/23/20 History acyclovir 400 mg tablet 400 mg PO TID PRN #20 tab 05/28/19 02/23/20 Rx duloxetine 20 mg capsule,delayed 20 mg PO DAILY #90 cap 05/28/19 02/23/20 Rx release duloxetine 30 mg capsule,delayed 30 mg PO DAILY #90 cap 05/28/19 02/23/20 Rx release estradiol 1 gram VAG DAILY #42.5 gram 05/28/19 02/23/20 Rx gabapentin 300 mg capsule 1,200 mg PO BEDTIME #360 cap 05/28/19 02/23/20 Rx lisinopril 20 1 tab PO DAILY #90 tab 05/28/19 02/23/20 Rx mg-hydrochlorothiazide 12.5 mg tablet valacyclovir 1 gram tablet 1,000 mg PO DAILY #90 tab 05/28/19 02/23/20 Rx coenzyme Q10-red yeast rice 60 cap PO 09/23/19 02/23/20 History mg-600 mg capsule diclofenac sodium 1 % topical gel 2 gram TOP QID PRN #100 gram 09/23/19 02/23/20 Rx ondansetron HCl [Zofran] 4 mg PO Q6H PRN #12 tab 09/25/19 02/23/20 Rx meloxicam 15 mg tablet 15 mg PO DAILY 09/28/19 02/23/20 History pantoprazole 20 mg tablet,delayed 40 mg PO BID #360 tab 10/28/19 02/23/20 Rx release atorvastatin 10 mg tablet 10 mg PO BEDTIME #90 tab 02/23/20 Rx cyclobenzaprine 10 mg tablet 10 mg PO TID PRN #15 tab 02/29/20 Rx sucralfate 1 gram tablet 1 g PO QID #30 tab 04/01/20 Rx eletriptan 40 mg tablet 40 mg PO .COMPLEX #14 tab 04/05/20 Rx hydroxyzine pamoate 25 mg capsule 25 mg PO Q6HR PRN #20 cap 04/06/20 Rx Allergies Allergy/AdvReac Type Severity Reaction Status Date / Time acetaminophen [From Percocet] Allergy ITCHING Verified 02/23/20 16:02 oxycodone [From Percocet] Allergy ITCHING Verified 10/27/20 16:02 NSAIDS (Non-Steroidal AdvReac Intermediate GI feels Verified 02/23/20 16:02 Anti-Inflamma like I've been punched in the stomach Review of Systems Review of Systems Narrative: A 10 point review of systems is negative except as noted in the HPI Exam Vital Signs (past 8 hours): - 04/14/20 13:47 Temperature 98.6 F Pulse Rate 84 Respiratory Rate 16 Blood Pressure 103/63 Pulse Oximetry 96 Oxygen Delivery Method Room Air Narrative Exam Narrative: General-no acute distress, well nourished adult woman HEENT-moist mucous membranes, no scleral icterus Neck-supple, no lymphadenopathy Chest- non labored respirations, clear to auscultation bilaterally Cardiac-regular rate no peripheral edema Abdomen-soft, nontender, non distended Extremities-warm, well perfused Neurological-alert and oriented, no focal deficits Assessment & Plan Assessment & Plan narrative: The patient requires colorectal screening and colonoscopy is recommended. Technical details were discussed. Risks, benefits, alternatives explained. Risks including but not limited to myocardial infarction, aspiration, bleeding, pain, missed lesion, incomplete examination, need for further radiographic studies, colonic perforation, and need for major abdominal surgery were discussed. All questions were answered to their satisfaction, and they are in agreement with this plan.
[2020-04-14] MEDS: fentaNYL 250 MCG/5 ML INJ IV ×2 (14:50→15:12)
[2020-04-14] MEDS: MIDAZOLAM 5 MG/5 ML VIAL IV ×3 (14:50→15:13)
--- NOTE | 2020-04-14 15:17 | PM.OP.ENDO ---
Operative Date/Time/Diagnoses Date of procedure: 04/14/20 Time of procedure: 15:17 Pre-op diagnosis: Personal history of colonic polyps Post-op diagnosis: same Procedure & Clinicians Study performed: Colonoscopy Same procedure as scheduled: Yes Indications: 59-year-old woman colonoscopy 5 years ago demonstrated benign polyps here for routine screening Surgeon: Robson Cho Procedure Notes Procedure in detail: Medications: Conscious sedation using 11mg IV midazolam and 350mcg IV of fentanyl The history and physical was performed/updated and the patient is ASA class is 2. The procedure was discussed in detail with the patient. Potential risks complications including infection, bleeding, missed diagnosis, perforation, need for surgery, and were explained. Their questions were answered and informed consent was obtained. Patient was brought to the procedure room and placed standard monitoring equipment. The patient's vital signs were monitored continuously throughout the entire procedure. Prior to starting time-out was performed. The patient was placed in the left lateral recumbent position. Procedural sedation was administered. Examination began with a thorough inspection of the perianal area there was no evidence of fissures, fistulae, external hemorrhoids or cutaneous malignancy. The colonoscopy scope was then placed into the anal canal and was advanced to the cecum, which was identified by the ileocecal valve, the appendiceal orifice and the confluence of the taenia. The scope was then slowly withdrawn examining colon thoroughly in all directions, irrigating it of any residual stool. No masses polyps The patient tolerated the procedure well. They will be discharged once criteria are met. The prep was of good/excellent quality. The withdrawl time was 6 minutes. The sedation time was 27 minutes. Specimen(s): none sent Complications: none Impression: Normal colonoscopy Post-procedure Recommendations: Colonscopy in 10 years Disposition: same day surgery
[2020-04-14 15:22] VITALS: BP 131/69; PULSE 91; RESP 12; TEMP 36.3; O2SAT 92
[2020-04-14 15:27] VITALS: BP 108/73; PULSE 91; RESP 13; O2SAT 95
[2020-04-14 15:32] VITALS: BP 120/81; PULSE 101; RESP 15; O2SAT 99
[2020-04-14 15:38] VITALS: BP 109/87; PULSE 96; RESP 20; O2SAT 93
== END 2020-04-14 15:47 | disposition home or self-care (01) ==
PROVIDERS: PCP Nurse Practitioner; Referring Provider Surgery; Visit Provider Surgery
PROC: 0DJD8ZZ Inspection of Lower Intestinal Tract, Via Natural or Artificial Opening Endoscopic (ICD-10-PCS; CPT 45378; principal; 2020-04-14 14:30)
DX: Z12.11 Encounter for screening for malignant neoplasm of colon (principal); Z86.010 Personal history of colon polyps; I10 Essential (primary) hypertension; E66.9 Obesity, unspecified; Z68.35 Body mass index [BMI] 35.0-35.9, adult; E78.5 Hyperlipidemia, unspecified; E03.9 Hypothyroidism, unspecified; F41.9 Anxiety disorder, unspecified; F32.9 Major depressive disorder, single episode, unspecified
CPT/HCPCS: 45378; 99152; 99153; J2250; J3010

== ENCOUNTER → 2020-04-20 08:47 | Outpatient (CLI) | payer OTHER, SELFPAY ==
[2018-01-30 09:28] VITALS: BMI 32.5
--- NOTE | 2020-04-20 09:50 | DI.CT.S_ITS ---
PROCEDURE: CT ABDOMEN W CON INDICATIONS: worsening epigastric pain over 3 weeks TECHNIQUE: After the administration of oral and intravenous contrast, 5 mm thick sections acquired from the diaphragms to the iliac crests. 5 mm thick coronal and sagittal reformats were acquired. For radiation dose reduction, the following was used: automated exposure control, adjustment of mA and/or kV according to patient size. COMPARISON: None. FINDINGS: Image quality: Excellent. Lung bases: Lung bases are clear. Heart size is normal. Solid organs: Liver is normal in size . Hepatic steatosis is seen, no discrete hepatic lesion. Gallbladder is surgically absent. There is mild intrahepatic biliary ductal dilatation. Common bile duct size measures up to 8 mm which is normal for post cholecystectomy patients. Pancreas enhances normally. Spleen is normal in size and enhancement. No adrenal nodules. Kidneys are normal in size, without hydronephrosis. Peritoneum and bowel: Contrast enhanced bowel loops appear normal in caliber. No free fluid or air. Significant fecal stasis throughout the colon is seen. Nodes and vessels: No retroperitoneal or mesenteric adenopathy by size criteria. Aorta and inferior vena cava are normal in size. Bones: No suspicious bony lesions. Age indeterminate anterior wedge compression deformity involving L1 vertebral body is seen with up to 50% loss of L1 vertebral body height. Miscellaneous: No ventral hernias. IMPRESSION: 1. Mild constipation. No evidence of bowel obstruction or abnormal bowel wall thickening. No free fluid or free air. 2. Hepatic steatosis, no discrete hepatic lesion. Prior cholecystectomy. Mild intrahepatic biliary ductal dilatation. Common bile duct size is in the upper limits of normal for post cholecystectomy patient. Dictated by: Johann Flores M.D. on 04/20/2020 at 9:57 Approved by: Johann Flores M.D. on 04/20/2020 at 10:03
== END ==
PROVIDERS: PCP Nurse Practitioner; Referring Provider Nurse Practitioner; Visit Provider Nurse Practitioner
DX: R10.13 Epigastric pain (principal); K21.00 Gastro-esophageal reflux disease with esophagitis, without bleeding; K83.8 Other specified diseases of biliary tract; K59.00 Constipation, unspecified; K76.0 Fatty (change of) liver, not elsewhere classified; Z90.49 Acquired absence of other specified parts of digestive tract
CPT/HCPCS: 74160; Q9967

== ENCOUNTER → 2020-05-11 16:37 | Outpatient (CLI) | payer OTHER, SELFPAY ==
[2018-01-30 09:28] VITALS: BMI 32.5
[2020-05-11 17:07] LABS: COVID19 -Nasal RAPID Negative (Negative)
== END ==
PROVIDERS: PCP Nurse Practitioner; Visit Provider Surgery
DX: Z01.812 Encounter for preprocedural laboratory examination (principal); Z20.822 Contact with and (suspected) exposure to COVID-19
CPT/HCPCS: 87635; C9803

== ENCOUNTER 2020-05-12 13:27 | Day surgery (SDC) | payer OTHER, SELFPAY ==
[2018-01-30 09:28] VITALS: BMI 32.5
[2020-05-12] VITALS (8 sets, daily range): BP systolic 146–159; BP diastolic 72–98; PULSE 84–96; RESP 10–16; TEMP 36.2–36.7; O2SAT 94–100; BMI 36.3
--- NOTE | 2020-05-12 | PATH_ITS ---
[facility] Accession Number: [id number] . 01 Material submitted: . esophagus, E-G Junction - GE JUNCTION . 01 Clinical history: . EGD . 02 Diagnosis: Gastroesophageal Junction, Biopsy: Squamous epithelium with no diagnostic abnormality. Intraepithelial eosinophils are not increased. Negative for dysplasia and malignancy. V 05/17/2020 1038 Local . 02 Electronically signed: . April Macario MD, Pathologist NPI- [id number] . 01 Gross description: . GE JUNCTION: Received in formalin are 2 fragment(s) of maharaj, soft tissue measuring 0.1 x 0.1 x 0.1 cm to 0.3 x 0.2 x 0.2 cm submitted entirely in 1 cassette(s) /HUMAIRA 05/13/20202058 Local . 02 Pathologist provided ICD-10: K21.9 . 02 CPT . 998352 Performed at: 01 [facility] [address] [facility], [place], [place] [id number] MD Hao Polo MD Phone: [phone] Performed at: 02 [facility] [address] [place], [place] [id number] MD April Macario MD Phone: [phone]
[2020-05-12] MEDS: LACTATED RINGERS 1,000 ML 200 ML IV (14:10)
--- NOTE | 2020-05-12 14:41 | PM.PREOP ---
Pre-operative Note COVID-19 COVID-19 status: Negative Interval Note History & Physical reviewed/Exam performed by Physician: Yes Changes to H&P: No ASA Class (for procedural sedation): II
--- NOTE | 2020-05-12 15:04 | PM.OP.ENDO ---
Operative Date/Time/Diagnoses Date of procedure: 05/12/20 Time of procedure: 15:04 Pre-op diagnosis: GERD Post-op diagnosis: same Procedure & Clinicians Study performed: Esophagoduodenoscopy Same procedure as scheduled: Yes Indications: 59-year-old woman history of gastric band and GERD says with worsening epigastric pain here for EGD Surgeon: Robson Cho Procedure Notes Procedure in detail: Patient placed in left lateral decubitus position. Time out was performed. Procedural sedation was administered with Versed and Fentanyl. A bite block was placed. the scope was inserted into the mouth and advanced through the esophagus and into the stomach. The pylorus was intubated and the duodenum was normal to the 2nd portion. The scope was retroflexed within the stomach and there was no hiatal hernia. No ulcers, or gastritis. The scope was withdrawn into the esophagus the Z line was seen at 35 cm from the incisions. There was no Chaves's esophagitis or masses or strictures. I performed biopsies of GE junction using the biopsy forceps. Stomach was desufflated and scope removed. Patient tolerated procedure well. Sedation minutes: 12 Specimen(s): other (GE junction) Complications: none Impression: Normal esophagoduodenoscopy Post-procedure Recommendations: Other recommendation (Biopsy results to follow) Disposition: same day surgery
[2020-05-12] MEDS: LIDOCAINE 4% SOLN 50 ML 20 ML TOP (15:06)
[2020-05-12] MEDS: MIDAZOLAM 5 MG/5 ML VIAL IV (15:07)
[2020-05-12] MEDS: fentaNYL 250 MCG/5 ML INJ IV (15:09)
[2020-05-12] MEDS: ONDANSETRON 4 MG/2 ML INJ IV (15:57)
== END 2020-05-12 16:16 | disposition home or self-care (01) ==
PROVIDERS: PCP Nurse Practitioner; Referring Provider Nurse Practitioner; Visit Provider Surgery
PROC: 0DJ08ZZ Inspection of Upper Intestinal Tract, Via Natural or Artificial Opening Endoscopic (ICD-10-PCS; CPT 43235; principal; 2020-05-12 14:30)
DX: K21.9 Gastro-esophageal reflux disease without esophagitis (principal); Z98.890 Other specified postprocedural states
CPT/HCPCS: 43239; 99152; J2250; J2405; J3010

== ENCOUNTER 2020-07-17 19:20 | Observation (INO) | payer OTHER, SELFPAY ==
[2018-01-30 09:28] VITALS: BMI 32.5
[2020-07-17] VITALS (14 sets, daily range): BP systolic 99–160; BP diastolic 55–82; PULSE 66–90; RESP 12–30; TEMP 36.3–37.1; O2SAT 94–99; BMI 33.6
--- NOTE | 2020-07-17 19:39 | DI.RAD.S_ITS ---
PROCEDURE: XR CHEST 1V INDICATIONS: chest pain TECHNIQUE: One view of the chest was acquired. COMPARISON: [facility], CR, XR CHEST 2V, 08/11/2018, 14:28. FINDINGS: Surgical changes and devices: None. Lungs and pleura: Right basilar atelectasis is seen. No focal infiltrate. No pleural effusions or pneumothorax. Mediastinum: Mediastinal contours appear normal. Heart size is normal. Bones and chest wall: No suspicious bony lesions. Overlying soft tissues appear unremarkable. IMPRESSION: Right basilar atelectasis. No focal infiltrate, pleural effusion or pneumothorax. Dictated by: Johann Flores M.D. on 07/17/2020 at 19:56 Approved by: Johann Flores M.D. on 07/17/2020 at 20:05
[2020-07-17 19:46] LABS: Add Manual Diff / Slide Review NO; Basophils Absolute Auto 100 /uL (0-100); Eosinophils Absolute Auto 100 /uL (0-450); Eosinophils Percent Auto 0.8 % (2-4); Hematocrit 41.7 % (36-46); Hemoglobin 14.1 g/dL (12.0-16.0); Lymphocytes Absolute Auto 2300 /uL (1100-4500); Lymphocytes Percent Auto 23.2 % (25-40); Mean Corpuscular HGB Conc 33.9 % (30-36); Mean Corpuscular Hemoglobin 29.9 PG (26-34); Mean Corpuscular Volume 88.3 fL (80-100); Monocytes Absolute Auto 700 /uL (0-900); Monocytes Percent Auto 6.8 % (3-14); Neutrophils Absolute Auto 6600 /uL (1500-7000); Neutrophils Percent Auto 68.2 % (50-75); Platelet Count 274 X10^3/uL (150-400); Red Blood Cell Count 4.73 X10^6/uL (4.0-5.2); Red Cell Distribution Width 14.3 % (11.6-14.8); White Blood Cell Count 9.7 X10^3/uL (4.5-11.0)
[2020-07-17 19:51] LABS: INR 1.2 (0.9-1.3); Prothrombin Time 13.4 SECONDS (10.1-12.7)
[2020-07-17 19:54] LABS: PTT Partial Thromboplastin Tim 33 SECONDS (26.4-36.2)
[2020-07-17] MEDS: ASPIRIN 81 MG CHEW TAB 324 MG PO (19:54)
[2020-07-17] MEDS: NITROGLYCERIN 0.4 MG SL TAB SL ×3 (19:54→20:29)
[2020-07-17 19:57] LABS: Alanine Aminotransferase 45 IU/L (<35); Albumin 4.4 g/dL (3.5-5.0); Albumin Globulin Ratio 1.4 (1.0-2.8); Alkaline Phosphatase 73 U/L (38-126); Aspartate Aminotransferase 33 IU/L (14-36); BUN Creatinine Ratio 20.6 (6-22); Bilirubin Total 0.3 mg/dL (0.2-1.3); Blood Urea Nitrogen 14 mg/dL (7-17); Calcium 9.7 mg/dL (8.4-10.2); Carbon Dioxide 28 mmol/L (22-32); Chloride 100 mmol/L (98-107); Creatine Kinase 64 U/L (30-135); Estimated Glomerular Filt Rate > 60.0 mL/min (>60); Globulin 3.2 g/dL (1.7-4.1); Glucose 103 mg/dL (70-100); HEMOLYSIS < 15 (0-50); Lipase 108 U/L (23-300); Potassium 3.6 mmol/L (3.4-5.1); Sodium 137 mmol/L (137-145); Total Protein 7.6 g/dL (6.3-8.2)
[2020-07-17 20:09] LABS: Troponin I < 0.012 ng/mL (0.01-0.034)
[2020-07-17] MEDS: METOPROLOL IR 25 MG TABLET 50 MG PO (20:13)
[2020-07-17 20:31] LABS: D Dimer 257 ng/mL (<230)
--- NOTE | 2020-07-17 20:39 | ED.CHESTPAIN ---
HPI - Chest Pain General Chief Complaint: Chest Pain Stated Complaint: states might have blockage in heart Time Seen by Provider: 07/17/20 19:33 Source: patient Mode of arrival: Ambulatory Limitations: no limitations History of Present Illness HPI narrative: 59-year-old female former smoker with history of hypertension and hyperlipidemia presents with a chief complaint of left-sided chest pressure with radiation to her back that has largely been present for the past 7-10 days. She denies any sudden onset of the symptoms and states that it is just gradually become present. She denies any provocation, palliation of her discomfort. She does state that she has become increasingly short of breath and notes in increasing intolerance of exertion over the past week or so. She states that over that time frame each day she has had an increasingly difficult time catching her breath with minimal exertion. She denies any nausea or vomiting. She denies any fever or chills. She denies recent travel, history of blood clot or known cancer. MD complaint: chest pain Onset (ago): day(s) Duration: constant Pain location: left chest Severity: moderate Quality: tightness and heaviness Pain radiation: back Relieving factors: nothing Exacerbating factors: nothing Treatments prior to arrival chest pain: none Related Data On Oral Contraceptives: No Home Medications Medication Instructions Recorded Confirmed Respironics Dreamstation CPAP #1 ea 11/18/18 07/18/20 eletriptan [Relpax] 40 mg PO .COMPLEX PRN 05/12/20 07/17/20 gabapentin [Neurontin] 600 mg PO BEDTIME 05/12/20 07/17/20 valacyclovir 500 mg PO DAILY 05/12/20 07/17/20 hydroxyzine pamoate 25 mg PO PRN PRN 07/17/20 07/17/20 lidocaine 5 patch TRANSDERMAL Q24W 07/17/20 07/17/20 Previous Rx's Medication Instructions Recorded acyclovir 400 mg tablet 400 mg PO TID PRN #20 tab 04/19/20 atorvastatin 10 mg tablet 10 mg PO BEDTIME #90 tab 04/19/20 cyclobenzaprine 10 mg tablet 10 mg PO TID PRN #15 tab 04/19/20 diclofenac sodium 1 % topical gel 2 g TOP QID PRN #100 gram 04/19/20 duloxetine 20 mg capsule,delayed 20 mg PO DAILY #90 cap 04/19/20 release duloxetine 30 mg capsule,delayed 30 mg PO DAILY #90 cap 04/19/20 release estradiol 1 g VAG DAILY #42.5 gram 04/19/20 lisinopril 20 1 tab PO DAILY #90 tab 04/19/20 mg-hydrochlorothiazide 12.5 mg tablet ondansetron HCl 4 mg tablet 4 mg PO Q6H PRN #12 tab 04/19/20 pantoprazole 40 mg tablet,delayed 40 mg PO BID #180 tab 07/13/20 release Allergies Allergy/AdvReac Type Severity Reaction Status Date / Time oxycodone [From Percocet] Allergy ITCHING Verified 05/12/20 13:42 NSAIDS (Non-Steroidal AdvReac Intermediate GI feels Verified 05/12/20 13:42 Anti-Inflamma like I've been punched in the stomach Review of Systems Constitutional Constitutional: Denies chills, Denies fatigue, Denies fever(s), Denies frequent falls, Denies lethargy and Denies weakness Eyes Eyes: Denies change in vision, Denies eye discharge, Denies irritation and Denies loss of vision ENT Ears, Nose, Mouth, and Throat: Denies change in voice, Denies dizziness, Denies neck pain, Denies sore throat and Denies throat swelling Cardiovascular Cardiovascular: Reports chest pain, Denies irregular heart rhythm, Denies lightheadedness, Denies palpitations, Reports dyspnea, Reports dyspnea on exertion and Denies orthopnea Respiratory Respiratory: Denies cough, Reports dyspnea, Reports dyspnea on exertion and Denies wheezing Gastrointestinal Gastrointestinal: Denies abdominal pain, Denies change in bowel habits, Denies diarrhea, Denies nausea and Denies vomiting Musculoskeletal Musculoskeletal: Denies neck pain and Denies numbness Integumentary/Breasts Skin/Breast: Denies pruritus, Denies erythema, Denies rash and Denies wounds Neurologic Neurologic: Denies behavioral changes, Denies confusion, Denies dizziness, Denies frequent falls, Denies loss of vision, Denies numbness and Denies weakness Psychiatric Psychiatric: Denies anxiety, Denies behavioral changes, Denies confusion, Denies depression, Denies homicidal ideation and Denies suicidal ideation Endocrine Endocrine: Denies fatigue, Denies flushing and Denies palpitations Hematologic/Lymphatic Hematologic/Lymphatic: Denies easy bruising Allergic/Immunologic Allergic/Immunologic: Denies urticaria, Denies throat swelling and Denies wheezing Patient History Medical History Actinic keratosis Anxiety (2000) Arthritis BCC (basal cell carcinoma of skin) Chickenpox (Unknown) Depression Eczema (2012) Excessive daytime sleepiness Fatigue Fibroids Fibromyalgia (2002) Foot pain Gastroenteritis Generalized headaches GERD (gastroesophageal reflux disease) Hayfever HSV (herpes simplex virus) anogenital infection Hyperlipidemia Hypertension Hypothyroidism Knee pain, right Mediastinal mass Memory change Migraines Obesity (BMI 35.0-39.9 without comorbidity) Pelvic pain Postmenopausal Prediabetes Recurrent UTI Rheumatoid arthritis Rosacea Shoulder pain (2014) Skin cancer Snoring Urinary incontinence (2004) Surgical History Anesthesia History of cholecystectomy History of colonoscopy (2005) History of colonoscopy with polypectomy (06/04/17) History of esophagogastroduodenoscopy (EGD) (06/04/17) History of esophagogastroduodenoscopy (EGD) (09/30/17) History of partial hysterectomy History of removal of laparoscopic gastric banding device (01/08/18) History of right knee surgery (03/12/18) History of total right knee replacement (TKR) (01/30/18) Hx of laparoscopic gastric banding S/P total knee arthroplasty Status post delivery (1988) Status post knee surgery (2002) Family History Father Age: 87 Essential hypertension Hyperlipidemia Sister Age: 61 Essential hypertension Grandfather Breast cancer Mother No problems noted. Social History marital status: household members: spouse occupational status: employed Smoking Status: Former smoker alcohol intake: current substance use type: does not use Smoking Status: Former smoker alcohol intake frequency: holidays/special occasions only Substance Use Type: does not use and other Exam Narrative Exam Narrative: GENERAL: 59 [] year old patient appears stated age. Well-nourished, well-developed patient, in mild distress. HEAD: Atraumatic. Normocephalic. EYES: Pupils equal round and reactive. Extraocular motions intact. No scleral icterus. No injection or drainage. ENT: Nose without bleeding, purulent drainage. Throat without erythema, tonsillar hypertrophy or exudate. Airway patent. NECK: Trachea midline. Non tender CARDIOVASCULAR: Regular rate and rhythm without murmurs, gallops, or rubs. Pain not reproducible with palpation RESPIRATORY: Clear to auscultation. Breath sounds equal bilaterally. No wheezes, rales, or rhonchi. GASTROINTESTINAL: Abdomen soft, non-tender, nondistended. EXTREMITIES: No edema or joint tenderness. BACK: Nontender without deformity or crepitance. No flank tenderness. NEURO: AOx3. SKIN: No rash or erythema of visible areas Initial Vital Signs Initial Vital Signs: Vital Signs Pulse Rate 87 07/17/20 19:28 Respiratory Rate 19 07/17/20 19:28 Pulse Oximetry 95 07/17/20 19:28 Scores HEART Score Heart Score history: Moderately Suspicious Heart Score EKG: Normal Heart Score Age: 45-64 years old Heart Score risk factors: 1-2 risk factors Heart Score troponin: < or = to normal limit Heart Score Total: 3 Course Orders Ordered: ED Orders 07/17/20 19:35 Complete Blood Count AUTO DIFF Stat Comprehensive Metabolic Panel Stat D Dimer Stat Lipase Stat Partial Thromboplastin Time Stat Prothrombin Time INR Stat Troponin & CK Cardiac Panel Stat 07/17/20 19:39 XR chest 1V Stat 07/17/20 20:08 EKG-12 Lead Stat 07/17/20 21:21 COVID19 - ADMIT (DIRECTOR OF QUALITY IMPROVEMENT swab/PCR) Stat Acetaminophen (Acetaminophen 325 Mg Tablet) 650 mg PO Q4HR PRN PRN Reason: Fever/Mild Pain (1-3) Al Hydrox/Mg Hydrox/Simethicone (Mag Hydrox/Alum/Simeth 30 Ml Udc) 30 ml PO Q6HR PRN PRN Reason: Dyspepsia Aspirin (Aspirin Ec 81 Mg Tablet) 81 mg PO DAILY [facility] Atorvastatin Calcium (Atorvastatin 20 Mg Tablet) 10 mg PO BEDTIME [facility] Last Admin: 07/17/20 23:17 Dose: 10 mg Documented by: LORRIE Bisacodyl (Bisacodyl 10 Mg Supp) 10 mg TN DAILY PRN PRN Reason: Constipation Calcium Carbonate (Calcium Carbonate 500 Mg Tab) 1,000 mg PO Q4HR PRN PRN Reason: Dyspepsia Docusate Sodium (Docusate 100 Mg Capsule) 100 mg PO BID PRN PRN Reason: Constipation Duloxetine HCl (Duloxetine 30 Mg Capsule) 50 mg PO DAILY [facility] Enoxaparin Sodium (Enoxaparin 40 Mg/0.4 Ml Syringe) 40 mg SUBCUT DAILY [facility] Gabapentin (Gabapentin 600 Mg Tablet) 600 mg PO BEDTIME [facility] Last Admin: 07/18/20 00:15 Dose: 600 mg Documented by: GABBY Hydrochlorothiazide (Hydrochlorothiazide 25 Mg Tablet) 12.5 mg PO DAILY [facility] Lisinopril (Lisinopril 20 Mg Tablet) 20 mg PO DAILY [facility] Morphine Sulfate (Morphine 2 Mg/Ml Inj) 2 mg IV Q5MIN PRN PRN Reason: Chest Pain Naloxone HCl (Naloxone 0.4 Mg/Ml Vial) 0.2 mg IV Q2MIN PRN PRN Reason: Opiate Reversal Nitroglycerin (Nitroglycerin 0.4 Mg Sl Tab) 0.4 mg SL [id number] PRN PRN Reason: Chest Pain Nitroglycerin (Nitroglycerin Oint 1 Inch/Gm Oint...G.) 1 inch TOP 0900,1500 [facility] Ondansetron HCl (Ondansetron 4 Mg/2 Ml Inj) 4 mg IV Q8HR PRN PRN Reason: Nausea And Vomiting Last Admin: 07/18/20 00:59 Dose: 4 mg Documented by: GABBY Pantoprazole Sodium (Pantoprazole 40 Mg Vial) 40 mg IV BID [facility] Last Admin: 07/17/20 23:18 Dose: 40 mg Documented by: LORRIE Pantoprazole Sodium (Pantoprazole 40 Mg Tablet) 40 mg PO BID [facility] Sodium Chloride (Sodium Chloride 0.9% Flush) 10 ml IV BID [facility] Sodium Chloride (Sodium Chloride 0.9% Flush) 10 ml IV PRN PRN PRN Reason: Flush Last Admin: 07/18/20 00:17 Dose: 10 ml Documented by: GABBY Tramadol HCl (Tramadol 50 Mg Tablet) 50 mg PO TID PRN PRN Reason: Pain, Moderate (4-6) Last Admin: 07/18/20 01:08 Dose: 50 mg Documented by: GABBY Discontinued Medications Acetaminophen (Acetaminophen 325 Mg Tablet) 650 mg PO NOW ONE Stop: 07/17/20 21:23 Last Admin: 07/17/20 21:37 Dose: 650 mg Documented by: MAGDALENA Aspirin (Aspirin 81 Mg Chew Tab) 324 mg PO NOW ONE Stop: 07/17/20 19:42 Last Admin: 07/17/20 19:54 Dose: 324 mg Documented by: FIDENCIO Gabapentin (Gabapentin 600 Mg Tablet) 1,200 mg PO BEDTIME MIREYA Gabapentin (Gabapentin 600 Mg Tablet) 1,200 mg PO BEDTIME [facility] Last Admin: 07/17/20 23:26 Dose: Not Given Documented by: LORRIE Gabapentin (Gabapentin 600 Mg Tablet) 1,200 mg PO BEDTIME MIREYA Last Admin: 07/18/20 00:31 Dose: Not Given Documented by: GABBY Ketorolac Tromethamine (Ketorolac 30 Mg/Ml Vial) 15 mg IV NOW ONE Stop: 07/17/20 22:45 Last Admin: 07/17/20 23:25 Dose: Not Given Documented by: LORRIE Ketorolac Tromethamine (Ketorolac 30 Mg/Ml Vial) 15 mg IV NOW ONE Stop: 07/17/20 23:25 Last Admin: 07/17/20 23:50 Dose: 15 mg Documented by: GABBY Metoprolol Tartrate (Metoprolol Ir 25 Mg Tablet) 50 mg PO NOW ONE Stop: 07/17/20 20:09 Last Admin: 07/17/20 20:13 Dose: 50 mg Documented by: FIDENCIO Nitroglycerin (Nitroglycerin 0.4 Mg Sl Tab) 0.4 mg SL [id number] PRN PRN Reason: Chest Pain Last Admin: 07/17/20 20:29 Dose: 0.4 mg Documented by: Admin: 07/17/20 20:10 Dose: 0.4 mg Documented by: Admin: 07/17/20 19:54 Dose: 0.4 mg Documented by: FIDENCIO Nitroglycerin (Nitroglycerin Oint 1 Inch/Gm Oint...G.) 1 inch TOP NOW ONE Stop: 07/17/20 21:23 Last Admin: 07/17/20 21:37 Dose: 1 inch Documented by: MAGDALENA Sodium Chloride (Sodium Chloride 0.9% Flush) 10 ml IV PRN PRN PRN Reason: Flush Last Admin: 07/18/20 00:59 Dose: 10 ml Documented by: GABBY Sodium Chloride (Sodium Chloride 0.9% Flush) 10 ml IV BID [facility] Reevaluation(s) Reevaluation #1: Pain from 6/10 to 3/10 after first nitro Pain down to 1/10 after 2nd nitro Reevaluation #2: Mild increase in pressure, repeat EKG ordered Nitro paste placed Consultations Consultation #1: discussed with Dr. Shannon. Normal troponin and non-occlusive EKG is reassuring, however worsening exercise intolerance and improvement with NG along with her risk factors warrant hospitalization for trending of troponin, echocardiogram and likely stress test Consultation #2: hospitalist happy to accept Vital Signs Vital signs: Vital Signs - 8 hr 07/17/20 19:28 07/17/20 19:30 07/17/20 19:38 Temperature 98.8 F Pulse Rate 87 87 86 Respiratory Rate 19 17 22 Blood Pressure 160/82 H Pulse Oximetry 95 95 98 07/17/20 20:00 07/17/20 20:16 07/17/20 20:30 Temperature Pulse Rate 90 89 76 Respiratory Rate 30 H 17 22 Blood Pressure 134/70 106/60 Pulse Oximetry 94 95 97 07/17/20 21:00 Temperature Pulse Rate 74 Respiratory Rate 22 Blood Pressure 115/66 Pulse Oximetry 98 MDM - Chest Pain Lab Data Result diagrams: 07/17/20 19:35 07/17/20 19:35 Labs: Lab Results 07/17/20 07/17/20 07/17/20 Range/Units 19:35 19:35 19:35 WBC 9.7 (4.5-11.0) X10^3/uL RBC 4.73 (4.0-5.2) X10^6/uL Hgb 14.1 (12.0-16.0) g/dL Hct 41.7 (36-46) % MCV 88.3 (80-100) fL MCH 29.9 (26-34) PG MCHC 33.9 (30-36) % RDW 14.3 (11.6-14.8) % Plt Count 274 (150-400) X10^3/uL Neut % (Auto) 68.2 (50-75) % Lymph % (Auto) 23.2 L (25-40) % Dane % (Auto) 6.8 (3-14) % Eos % (Auto) 0.8 L (2-4) % Baso % (Auto) 1.0 (0-2) % Neut # (Auto) 6600 (2415-7658) /uL Lymph # (Auto) 2300 (5304-1229) /uL Dane # (Auto) 700 (0-900) /uL Eos # (Auto) 100 (0-450) /uL Baso # (Auto) 100 (0-100) /uL PT 13.4 H (10.1-12.7) SECONDS INR 1.2 (0.9-1.3) APTT 33 (26.4-36.2) SECONDS D-Dimer (<230) ng/mL Sodium 137 (137-145) mmol/L Potassium 3.6 (3.4-5.1) mmol/L Chloride 100 (98-107) mmol/L Carbon Dioxide 28 (22-32) mmol/L BUN 14 (7-17) mg/dL Creatinine 0.68 (0.52-1.04) mg/dL Estimated GFR > 60.0 (>60) mL/min BUN/Creatinine Ratio 20.6 (6-22) Glucose 103 H (70-100) mg/dL Calcium 9.7 (8.4-10.2) mg/dL Total Bilirubin 0.3 (0.2-1.3) mg/dL AST 33 (14-36) IU/L ALT 45 H (<35) IU/L Alkaline Phosphatase 73 (38-126) U/L Total Creatine Kinase 64 (30-135) U/L CK-MB (CK-2) TNP CK-MB (CK-2) Rel Index TNP Troponin I < 0.012 (0.01-0.034) ng/mL Total Protein 7.6 (6.3-8.2) g/dL Albumin 4.4 (3.5-5.0) g/dL Globulin 3.2 (1.7-4.1) g/dL Albumin/Globulin Ratio 1.4 (1.0-2.8) Lipase 108 (23-300) U/L 07/17/20 Range/Units 19:35 WBC (4.5-11.0) X10^3/uL RBC (4.0-5.2) X10^6/uL Hgb (12.0-16.0) g/dL Hct (36-46) % MCV (80-100) fL MCH (26-34) PG MCHC (30-36) % RDW (11.6-14.8) % Plt Count (150-400) X10^3/uL Neut % (Auto) (50-75) % Lymph % (Auto) (25-40) % Dane % (Auto) (3-14) % Eos % (Auto) (2-4) % Baso % (Auto) (0-2) % Neut # (Auto) (5734-2318) /uL Lymph # (Auto) (2775-4291) /uL Dane # (Auto) (0-900) /uL Eos # (Auto) (0-450) /uL Baso # (Auto) (0-100) /uL PT (10.1-12.7) SECONDS INR (0.9-1.3) APTT (26.4-36.2) SECONDS D-Dimer 257 H (<230) ng/mL Sodium (137-145) mmol/L Potassium (3.4-5.1) mmol/L Chloride (98-107) mmol/L Carbon Dioxide (22-32) mmol/L BUN (7-17) mg/dL Creatinine (0.52-1.04) mg/dL Estimated GFR (>60) mL/min BUN/Creatinine Ratio (6-22) Glucose (70-100) mg/dL Calcium (8.4-10.2) mg/dL Total Bilirubin (0.2-1.3) mg/dL AST (14-36) IU/L ALT (<35) IU/L Alkaline Phosphatase (38-126) U/L Total Creatine Kinase (30-135) U/L CK-MB (CK-2) CK-MB (CK-2) Rel Index Troponin I (0.01-0.034) ng/mL Total Protein (6.3-8.2) g/dL Albumin (3.5-5.0) g/dL Globulin (1.7-4.1) g/dL Albumin/Globulin Ratio (1.0-2.8) Lipase (23-300) U/L MDM Narrative Medical decision making narrative: Former smoker with hypertension hyperlipidemia and the presence of left-sided chest pressure with radiation and improvement with nitroglycerin. EKGs are reassuring as is the negative troponin, however exercise intolerance and worsening fatigue with minimal exertion raises the suspicion and has a possible cardiac equivalent. Other diagnoses such as pulmonary embolism considered but thought less likely given D-dimer which is negative when corrected for age. Patient requires hospitalization for further characterization of her symptoms and further testing. Patient understands and is in agreement with the plan Discharge Plan Departure Patient Disposition: Admitted as Observation Clinical Impression: Chest pain Qualifiers: Chest pain type: unspecified Qualified Code(s): R07.9 - Chest pain, unspecified Admit Date/Time: 07/17/20 21:15 Admit Provider: Kyle Navas
[2020-07-17] MEDS: ACETAMINOPHEN 325 MG TABLET 650 MG PO (21:37)
[2020-07-17] MEDS: NITROGLYCERIN OINT 1 INCH/GM OINT...G. TOP (21:37)
[2020-07-17 22:47] LABS: COVID19 - ADMIT (NP swab/PCR) Negative (Negative)
--- NOTE | 2020-07-17 22:54 | DI.ECHO.S_ITS ---
[place] +---------+ [facility] +---------+ : : [address] : [place] : : : : [address] : : : : Phone: [phone]+ Echocardiogram Report + + :Name: NEREYDA HAMILTON Study Date: 07/18/2020 Height: 63 in : :[facility] ReadingLocation: Weight: 190 lb : : Gender: Female BSA: 1.9 m2 : :: 1960 Age: 59 yrs BP: 114/55 mmHg: :Reason For Study: CHEST PAIN : :Ordering Physician: BELIA, : :BROOKE Performed By: Briana Jiang : :Referring: BROOKE CELAYA : + + Interpretation Summary The left ventricle is normal in size. Left ventricular systolic function is normal. The ejection fraction is estimated to be 50-55%. LVEF has not significantly changed since prior study. Cannot completely exclude mild hypokinesis along the mid/distal anterior and anterolateral segments. Possible hypokinesis is best seen in apical views with Definity contrast; however, WMAs are not noted with parasternal short axis. Diastolic parameters suggest probable normal left ventricular diastolic function and normal filling pressures. The right ventricle is normal in size and function. The right ventricular systolic pressure is estimated to be at least 16 mmHg based on an estimated right atrial pressure of 3 mm Hg. The left atrium is mildly dilated. Right atrial size is normal. There is no significant valvular heart disease. The aortic root is normal size. Procedure: A two-dimensional transthoracic echocardiogram with color flow and Doppler was performed. The study quality was technically adequate. Comparison is made with the echocardiogram of 12/05/2016. A contrast injection of Definity was performed to improve assessment of LV function. The patient was in sinus bradycardia with heart rates between 51-64 bpm during the exam. Left Ventricle: The left ventricle is normal in size. Left ventricular wall thickness is mildly increased. Left ventricular systolic function is normal. The ejection fraction is estimated to be 50-55%. Cannot completely exclude mild hypokineis along the mid/distal anterior and anterolateral segments. Possible hypokinesis is best seen in apical views with Definity contrast; however, WMAs are not noted with parasternal short axis. Diastolic parameters suggest probable normal left ventricular diastolic function and normal filling pressures. Right Ventricle: The right ventricle is normal in size and function. Atria: The left atrium is mildly dilated. Right atrial size is normal. There is no Doppler evidence for an interatrial shunt. Mitral Valve: The mitral valve is normal in structure and function. There is trace mitral regurgitation. Aortic Valve: The aortic valve is trileaflet. The aortic valve opens well. There is no aortic valve stenosis. There is trace aortic regurgitation. Tricuspid Valve: The tricuspid valve is normal in structure and function. There is mild tricuspid regurgitation. The right ventricular systolic pressure is estimated to be at least 16 mmHg based on an estimated right atrial pressure of 3 mm Hg. Pulmonic Valve: The pulmonic valve leaflets are thin and pliable; valve motion is normal. There is trace pulmonic regurgitation. There is no significant valvular heart disease. Great Vessels: The aortic root is normal size. The dimensions of the ascending aorta are normal. The IVC is of normal diameter and collapses greater than 50% with a sniff. This suggests a low right atrial pressure of 3 mm Hg. Pericardium/ Pleura There is no pericardial effusion. There is no pleural effusion. MMode/2D Measurements & Calculations LVIDd: 4.7 cm LVOT diam: 2.1 cm LVIDs: 3.1 cm Ao root diam: 3.7 cm FS: 34.0 % asc Aorta Diam: 3.2 cm EPSS: 1.3 cm Ao Arch Diam (Prox Trans): 2.5 cm IVSd: 1.2 cm LVPWd: 1.0 cm LV roberts. diameter/BSA (cm/m^2): 2.5 LV sys. diameter/BSA (cm/m^2): 1.7 LA A2 area: 22.3 cm2 RA long axis: 5.3 cm LA A4 area: 19.0 cm2 RA area: 18.2 cm2 LA length (vol): 5.4 cm RA vol: 53.6 ml LA vol: 66.3 ml RA : 28.3 ml/m2 LA vol index: 35.0 ml/m2 IVC diam: 1.7 cm RVD1 (basal): 3.9 cm TAPSE: 1.7 cm Doppler Measurements & Calculations Ao V2 max: 129.9 cm/sec LVOT Max Geraldo: 64.9 cm/sec Ao V2 mean: 92.1 cm/sec LV V1 max P.7 mmHg Ao max P.8 mmHg LV V1 VTI: 15.7 cm Ao mean P.7 mmHg ALPESH(I,D): 1.6 cm2 Ao V2 VTI: 31.9 cm ALPESH(V,D): 1.7 cm2 sev ratio: 0.49 ALPESH indexed to BSA (cm^2/m^2): 0.86 MV E max geraldo: 74.1 cm/sec TR max geraldo: 177.6 cm/sec MV A max geraldo: 48.7 cm/sec TR max P.6 mmHg MV E/A: 1.5 PA V2 max: 49.1 cm/sec Med Peak E' Geraldo: 8.2 cm/sec PA V2 mean: 33.2 cm/sec E/E' med: 9.0 PA mean P.50 mmHg Lat Peak E' Geraldo: 8.9 cm/sec PA pr(Accel): 29.3 mmHg E/E' lat: 8.4 E/e' average: 8.7 MV dec time: 0.23 sec SV(LVOT): 52.0 ml Reading Physician:09:45 AM
--- NOTE | 2020-07-17 22:59 | P.HP_ITS ---
History of Present Illness History of Present Illness Date Patient Seen: 07/17/20 Time Patient Seen: 22:45 Chief complaint: states might have blockage in heart Narrative: Ms. Amy Thurston is a 59 year old female was a former smoker with a past medical history of GERD with esophagitis, hypertension, hyperlipidemia, hypothyroidism, fibromyalgia, prediabetes and anxiety with depression who presents to the ER with chest pain. The patient reports having left parasternal chest pain that is constant and aching, nonpleuritic with radiation to the left scapula. The patient has a history of extensive reflux disease and esophagitis and states his pain is completely different. She further endorses she had a [employer] COVID-19 vaccine 2 weeks ago. The patient reports associated nausea and dyspnea which is exertional initially when walking up hill or climbing stairs but over the last couple of days becomes short of breath with walking on level surfaces. Her symptoms are exacerbated with activity and improved at rest. She states she has never had this kind of pain before and denies personal or family history of cardiac disease. Patient does have a history headaches and has not experienced anything out of character though does report headache now following treatment with nitroglycerin. She reports no fevers or chills, nasal congestion or sore throat. Chest chest pain as above but denies palpitations or racing heart beat. She has had no coughs or wheezing. She denies epigastric or abdominal pain, has had a versus nausea but has had no vomiting. She has had no diarrhea or constipation, hematochezia or melena. The patient is typically active and exercises regularly. Upon arrival to the ER the patient has temperature 98.8?, heart rate of 86, blood pressure 160/82, respirations 22 saturating 98% on room air. Initial EKG shows sinus rhythm rate of seventy-five without ectopy or block, inverted T- waves are noted in V2 which is changed from a prior tracing on 08/11/2018. Chest x-ray reveals right basilar atelectasis without infiltrations or pulmonary effusions. Mediastinum and heart size are normal. On laboratory analysis her CBC is unremarkable, she has a PT of 13.4 and INR 1.2 and a PTT of 33. D-dimer is 257 and within normal range for age adjustment. Chemistries are all within normal limits with a BUN of 14 and creatinine 0.68 a nonfasting glucose 103. She has a total bilirubin of 0.3, his T of 33?, ALT of 45 and alkaline phosphatase of 73. Her lipase is 1 weight. Her total CK is 64 and her troponin is less than 0.012. COVID screening is negative. In the ER the patient received aspirin 324 mg, nitroglycerin sublingual x3 with topical base, metoprolol 50 mg p.o.. Chest pain all but resolved nitro from an 8/10 to residual dull aching sensation. The patient is admitted to the hospitalist service for chest pain rule out ACS. Patient History Medical History Actinic keratosis Anxiety (2000) Arthritis BCC (basal cell carcinoma of skin) Chickenpox (Unknown) Depression Eczema (2012) Excessive daytime sleepiness Fatigue Fibroids Fibromyalgia (2002) Foot pain Gastroenteritis Generalized headaches GERD (gastroesophageal reflux disease) Hayfever HSV (herpes simplex virus) anogenital infection Hyperlipidemia Hypertension Hypothyroidism Knee pain, right Mediastinal mass Memory change Migraines Obesity (BMI 35.0-39.9 without comorbidity) Pelvic pain Postmenopausal Prediabetes Recurrent UTI Rheumatoid arthritis Rosacea Shoulder pain (2014) Skin cancer Snoring Urinary incontinence (2004) Surgical History Anesthesia History of cholecystectomy History of colonoscopy (2005) History of colonoscopy with polypectomy (06/04/17) History of esophagogastroduodenoscopy (EGD) (06/04/17) History of esophagogastroduodenoscopy (EGD) (09/30/17) History of partial hysterectomy History of removal of laparoscopic gastric banding device (01/08/18) History of right knee surgery (03/12/18) History of total right knee replacement (TKR) (01/30/18) Hx of laparoscopic gastric banding S/P total knee arthroplasty Status post delivery (1988) Status post knee surgery (2002) Family & Social History Family History Father Age: 87 Essential hypertension Hyperlipidemia Sister Age: 61 Essential hypertension Grandfather Breast cancer Mother No problems noted. Social History: household members spouse Tobacco & Substance use: Smoking Status Former smoker alcohol intake current alcohol intake frequency holiday/special occasion Substance Use Type other,does not use Meds Home Medications and Allergies Home Medications Medication Instructions Recorded Confirmed Type Respironics Dreamstation CPAP #1 ea 11/18/18 05/04/20 History acyclovir 400 mg tablet 400 mg PO TID PRN #20 tab 04/19/20 07/17/20 Rx atorvastatin 10 mg tablet 10 mg PO BEDTIME #90 tab 04/19/20 07/17/20 Rx cyclobenzaprine 10 mg tablet 10 mg PO TID PRN #15 tab 04/19/20 07/17/20 Rx diclofenac sodium 1 % topical gel 2 g TOP QID PRN #100 gram 04/19/20 07/17/20 Rx duloxetine 20 mg capsule,delayed 20 mg PO DAILY #90 cap 04/19/20 07/17/20 Rx release duloxetine 30 mg capsule,delayed 30 mg PO DAILY #90 cap 04/19/20 07/17/20 Rx release estradiol 1 g VAG DAILY #42.5 gram 04/19/20 07/17/20 Rx lisinopril 20 1 tab PO DAILY #90 tab 04/19/20 07/17/20 Rx mg-hydrochlorothiazide 12.5 mg tablet ondansetron HCl 4 mg tablet 4 mg PO Q6H PRN #12 tab 04/19/20 07/17/20 Rx eletriptan [Relpax] 40 mg PO .COMPLEX PRN 05/12/20 07/17/20 History gabapentin [Neurontin] 600 mg PO BEDTIME 05/12/20 07/17/20 History valacyclovir 500 mg PO DAILY 05/12/20 07/17/20 History pantoprazole 40 mg tablet,delayed 40 mg PO BID #180 tab 07/13/20 07/17/20 Rx release hydroxyzine pamoate 25 mg PO PRN PRN 07/17/20 07/17/20 History lidocaine 5 patch TRANSDERMAL Q24W 07/17/20 07/17/20 History Allergies Allergy/AdvReac Type Severity Reaction Status Date / Time oxycodone [From Percocet] Allergy ITCHING Verified 05/12/20 13:42 NSAIDS (Non-Steroidal AdvReac Intermediate GI feels Verified 05/12/20 13:42 Anti-Inflamma like I've been punched in the stomach Review of Systems Review of Systems ROS: Yes All systems reviewed with the patient and are negative except as otherwise documented Exam Vital Signs (past 8 hours): - 07/17/20 19:28 07/17/20 19:30 07/17/20 19:38 Temperature 98.8 F Pulse Rate 87 87 86 Respiratory Rate 19 17 22 Blood Pressure 160/82 H Pulse Oximetry 95 95 98 07/17/20 20:00 07/17/20 20:16 07/17/20 20:30 Temperature Pulse Rate 90 89 76 Respiratory Rate 30 H 17 22 Blood Pressure 134/70 106/60 Pulse Oximetry 94 95 97 07/17/20 21:00 07/17/20 21:30 07/17/20 21:35 Temperature Pulse Rate 74 68 71 Respiratory Rate 22 12 12 Blood Pressure 115/66 99/60 105/65 Pulse Oximetry 98 99 98 07/17/20 21:37 07/17/20 21:40 07/17/20 21:50 Temperature Pulse Rate 67 82 66 Respiratory Rate 16 14 Blood Pressure 105/65 142/70 H 111/58 L Pulse Oximetry 98 99 Oxygen Delivery Method Room Air Narrative Exam Narrative: GENERAL APPEARANCE: well developed, obese female with a BMI of 33.7 sitting up in bed briskly responsive in no acute distress. HEENT: Normocephalic, PERRLA, conjunctiva clear, EOMs intact without nystagmus, mucous membranes are moist and pink. NECK/THYROID: Well-healed surgical scar anterior neck, neck supple, no JVD, no carotid bruit, no thyromegaly, trachea midline. LYMPH NODES: no cervical or supraclavicular lymphadenopathy. SKIN: [place], warm and dry, no visible rashes or lesions. HEART: regular rate and rhythm, S1-S2, no murmur, no rubs or gallops, brisk capillary refill, no peripheral edema. LUNGS: clear to auscultation bilaterally, no coarseness crackles or wheezing, no cough present, no conversational dyspnea. CHEST: Symmetrical movement, no accessory muscle use, good tidal volume, no pain on AP or lateral compression. ABDOMEN: Soft, no distention, no abdominal tenderness, no guarding or peritoneal signs, no organomegaly, no flank or suprapubic tenderness, active bowel tones. BACK: Normal curvature, nontender to palpation, no CVA tenderness on percussion EXTREMITIES: moves all extremities, strength is 5/5 and symmetrical, no deformities or joint effusions, no clubbing or cyanosis. NEUROLOGIC: AAO x4, no focal neurologic deficits, cranial nerves II-XII grossly intact, sensation intact to light touch, hearing grossly normal to speech. PSYCH: Patient is briskly interactive, cooperative with stable behavior, denies anxiety or depression symptoms, no thoughts of self-harm Objective Labs Result Diagrams: 07/17/20 19:35 07/17/20 19:35 Labs: Laboratory Results - last 24 hr 07/17/20 07/17/20 07/17/20 19:35 19:35 19:35 WBC 9.7 RBC 4.73 Hgb 14.1 Hct 41.7 MCV 88.3 MCH 29.9 MCHC 33.9 RDW 14.3 Plt Count 274 Neut % (Auto) 68.2 Lymph % (Auto) 23.2 L [place] % (Auto) 6.8 Eos % (Auto) 0.8 L Baso % (Auto) 1.0 Neut # (Auto) 6600 Lymph # (Auto) 2300 [place] # (Auto) 700 Eos # (Auto) 100 Baso # (Auto) 100 PT 13.4 H INR 1.2 APTT 33 D-Dimer Sodium 137 Potassium 3.6 Chloride 100 Carbon Dioxide 28 BUN 14 Creatinine 0.68 Estimated GFR > 60.0 BUN/Creatinine Ratio 20.6 Glucose 103 H Calcium 9.7 Total Bilirubin 0.3 AST 33 ALT 45 H Alkaline Phosphatase 73 Total Creatine Kinase 64 CK-MB (CK-2) TNP CK-MB (CK-2) Rel Index TNP Troponin I < 0.012 Total Protein 7.6 Albumin 4.4 Globulin 3.2 Albumin/Globulin Ratio 1.4 Lipase 108 07/17/20 19:35 WBC RBC Hgb Hct MCV MCH MCHC RDW Plt Count Neut % (Auto) Lymph % (Auto) [place] % (Auto) Eos % (Auto) Baso % (Auto) Neut # (Auto) Lymph # (Auto) [place] # (Auto) Eos # (Auto) Baso # (Auto) PT INR APTT D-Dimer 257 H Sodium Potassium Chloride Carbon Dioxide BUN Creatinine Estimated GFR BUN/Creatinine Ratio Glucose Calcium Total Bilirubin AST ALT Alkaline Phosphatase Total Creatine Kinase CK-MB (CK-2) CK-MB (CK-2) Rel Index Troponin I Total Protein Albumin Globulin Albumin/Globulin Ratio Lipase Assessment & Plan Assessment & Plan narrative: This is a 59-year-old female patient with no prior personal or FH only history of cardiac disease who presents to the ER with left chest pain radiating the left scapula with associated nausea and dyspnea onset 11-14 days ago. She states the pain is very different from her previous gastric and reflux pain. The patient received [employer] COVID-19 vaccine 2 weeks ago. 1. Chest pain, left chest with radiation to back, present on admission, active. -heart score is 5. -chest pain is essentially resolved with 3 sublingual nitro and 1 in nitroglycerin topical paste. Patient with nitro headache treated with Tylenol and Toradol 15 mg x 1. -12 lead EKG shows a sinus rhythm at 75 with no ectopy or block, T-wave inversion in V2 noted in comparison with previous EKG of 08/11/2018. -laboratory analysis reveals a CK of 64, troponin is negative at less than 0.012. Will obtain serial troponins again at midnight and then 5:00 a.m.. -will additionally obtain TSH, hemoglobin a 1 C and lipid panels for risk stratification. -or nitro paste 1 in topical, nitroglycerin 0.4 mg sublingual Q 5 minutes x3 as needed for pain and morphine sulfate 2 mg IV for chest pain on resolved with nitro. -ordered echocardiogram. -ordered nuclear med stress test. 2. Exertional dyspnea, present on admission, active. -patient with progressive exertional dyspnea initially occurring only when walking uphill, over the last few days becomes dyspneic walking on the flat. -patient denies fevers or chills cough or wheezing or other pulmonary symptoms. Chest x-ray reveals right basilar atelectasis not appreciated on auscultation, no evidence of dyspnea or increased work of breathing, upon admission to the floor respiratory rate of 16 saturating 98% on room air. -Will evaluate for cardiac complement and/or pulmonary hypertension. 3. Gastroesophageal reflux disorder, chronic, stable. -patient denies current exacerbation of symptoms. Underwent recent EGD with Dr. Cho 05/12/2020 described postop noted as normal findings. -will continue prophylaxis with pantoprazole 40 mg twice daily. 4. Essential hypertension, chronic, stable. -blood pressure elevated upon presentation to the ER and 160/82, after treatment and symptom improvement nitroglycerin blood pressure is 114/55. -will continue current home regimen of lisinopril 20 mg hydrochlorothiazide 12.5 mg daily. 5. Hyperlipidemia, chronic, stable. -Continue home regimen of atorvastatin 10 mg daily. -will obtain lipid panel. 6. Acquired hypothyroidism, chronic, stable. -will continue levothyroxine 75 mcg daily at bedtime. -ordered TSH with reflex to T4. 7. Chronic pain, fibromyalgia, chronic, stable. -will continue home regimen of gabapentin 600 mg daily at bedtime. 8. Anxiety and depression, chronic, stable -patient denies anxiety or increased stress commands or with onset of chest pain. Patient states she is ?in a good place?. -will continue duloxetine 50 mg daily. VTE prophylaxis: Enoxaparin IV fluid: Saline lock Diet: Heart healthy Code status: Full code, the patient's Slava is a surrogate decision maker and holds DPOA. The patient is admitted to the hospital due to the severity of her symptoms and the need for further monitoring and evaluation to rule out cardiac etiology of chest pain and prevent complications or adverse events. The patient is admitted to the hospital as observation status with expected length of stay to be less than 2 midnights. Scores GCS [place] coma scale eye opening: Spontaneous [place] coma scale verbal response: Orientated [place] coma scale motor response: Obey commands [place] coma scale total score: 15 Quality MIPS - Admit Advanced Care Plan / Current Medications Measures: #47 ? Advanced Care Plan Clinician documentation instruction: document at admission. xI confirmed that the patient's Advance Care Plan is present, code status is documented, or surrogate decision maker is listed in the patient?s medical record. [SATISFIES MIPS PERFORMANCE] If Yes, Stop Here [] The patient?s Advance Care plan is not present because: (select) [MIPS PERFORMANCE EXCEPTION/EXCLUSION] [] I confirmed today that the patient does not wish or was not able to name a surrogate decision maker or provide an Advance Care Plan. [] Hospice care is currently being provided or has been provided this calendar year [] I did NOT confirm today the presence of an Advance Care Plan or surrogate decision maker documented within the patient's medical record. [DOES NOT SATISFY MIPS PERFORMANCE] #130 - Documentation of Current Medications in the Medical Record Clinician documentation instruction: use macro the first time you see a patient. xI have utilized all available immediate resources to obtain, update, or review the patient?s current medications. [SATISFIES MIPS PERFORMANCE] If Yes, Stop Here [] The patient is not eligible for medication reconciliation; the patient is in an emergent medical situation where delaying treatment would jeopardize the patient?s health. [MIPS PERFORMANCE EXCEPTION/EXCLUSION] [] I did NOT confirm, update or review the patient's current list of medications today. [DOES NOT SATISFY MIPS PERFORMANCE] MIPS - CL Central Venous Catheter Placement Measure: #76 ? Prevention of Central Venous Catheter (CVC) ? Related Bloodstream Infection Clinician documentation instruction: use macro every time you place a central line. [] All elements of Maximal Sterile Barrier Technique, including hand hygiene, skin prep, and sterile ultrasound technique (if used) were followed. [SATISFIES MIPS PERFORMANCE] If Yes, Stop Here [] If ?No?, the medical reason all elements were NOT used for medical reason [] (ex. emergent condition). [] Maximal Sterile Barrier Technique was not followed, no reason provided [DOES NOT SATISFY MIPS PERFORMANCE] MIPS - DC Heart Failure Measures: #5 - Heart Failure (HF): Angiotensin-Converting Enzyme (GAMAL) Inhibitor or Angiotensin Receptor Jessenia (ARB) Therapy for Left Ventricular Systolic Dysfunction (LVSD) and #8 - Heart Failure (HF): Beta-Jessenia Therapy for Left Ventricular Systolic Dysfunction (LVSD) Clinician documentation instruction: use macro at every CHF discharge. [] The patient has current or prior documentation of left ventricular ejection fraction (LVEF) less than 40%, or moderate or severely depressed left ventr icular systolic function. Answer both: [SATISFIES MIPS PERFORMANCE] [] The patient was prescribed or already taking an Angiotensin-Converting Enzyme (GAMAL) Inhibitor, or Angiotensin Receptor Jessenia (ARB). [] The patient was prescribed or already taking a beta-jessenia. If Yes to Both, Stop Here [] Patient not prescribed/taking: [MIPS PERFORMANCE EXCEPTION/EXCLUSION] [] GAMAL or ARB for medical/patient/system reason(s) including [] (ex. allergy, intolerance, contraindication) [] Beta-jessenia for medical/patient/system reason(s) including [] (ex. allergy, intolerance, contraindication) [] Patient not prescribed/taking: [DOES NOT SATISFY MIPS PERFORMANCE] [] GAMAL or ARB, no reason given [] Beta-jessenia, no reason given
[2020-07-17] MEDS: ATORVASTATIN 20 MG TABLET 10 MG PO (23:17)
[2020-07-17] MEDS: PANTOPRAZOLE 40 MG VIAL IV (23:18)
--- NOTE | 2020-07-17 23:29 | PC.NURSE ---
Patient admitted from ED on obs for exertion chest pain over the past 11 days. Patient reports 1/10 pain at admission. Patient is ambulatory, A/Ox4, vitals WNL. 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 Admission was done by MILO Ravi.
[2020-07-17] MEDS: KETOROLAC 30 MG/ML VIAL 15 MG IV (23:50)
[2020-07-18] VITALS (8 sets, daily range): BP systolic 102–114; BP diastolic 61–72; PULSE 53–71; RESP 16–18; TEMP 36.2–36.6; O2SAT 93–99
[2020-07-18] MEDS: GABAPENTIN 600 MG TABLET PO (00:15)
[2020-07-18] MEDS: SODIUM CHLORIDE 0.9% FLUSH 10 ML IV ×3 (00:17→09:04)
[2020-07-18 00:29] LABS: Troponin I < 0.012 ng/mL (0.01-0.034)
[2020-07-18] MEDS: ONDANSETRON 4 MG/2 ML INJ IV ×2 (00:59→09:05)
[2020-07-18] MEDS: TRAMADOL 50 MG TABLET PO ×2 (01:08→13:47)
--- NOTE | 2020-07-18 01:20 | PC.NURSE ---
Continues to C/O LOYA. Requested to discontinue the NTG. paste, WATER QUALITY TESTERLesly Navas notified ordered to take off the Nitro paste done. medicated with Zofran prior to admin. Tramadol. Pt. reports at home before I take Tramadol, I normally takes Ondansetron first. My stomach is very sensitive to medications. Zofran admin. & 50 mg. of Tramadol admin. took pill with saltine crackers. Will cont. POc & monitor.
[2020-07-18 05:38] LABS: BUN Creatinine Ratio 23.5 (6-22); Blood Urea Nitrogen 16 mg/dL (7-17); Calcium 8.9 mg/dL (8.4-10.2); Carbon Dioxide 27 mmol/L (22-32); Chloride 97 mmol/L (98-107); Cholesterol 143 mg/dL (140-199); Estimated Glomerular Filt Rate > 60.0 mL/min (>60); Glucose 89 mg/dL (70-100); HDL Cholesterol 47 mg/dL (40-60); HEMOLYSIS < 15 (0-50); LDL Cholesterol Calculated 74 mg/dL (<100); Potassium 4.2 mmol/L (3.4-5.1); Sodium 131 mmol/L (137-145); Triglycerides 109 mg/dL (35-150)
[2020-07-18 05:47] LABS: Hemoglobin A1C% w Est Avg Glu 5.3 % (4.0-6.0)
[2020-07-18 05:49] LABS: Troponin I < 0.012 ng/mL (0.01-0.034)
[2020-07-18 06:15] LABS: TSH w/ Reflex to FT4 2.18 uIU/mL (0.47-4.68)
[2020-07-18] MEDS: SODIUM CHLORIDE 0.9% 1,000 ML 100 ML IV (06:28)
--- NOTE | 2020-07-18 07:06 | CM.MNRNOTE ---
0628 Denies sharp CP now, states just ache, sharp pain is gone. Rated CP at 2 now. Will monitor.
[2020-07-18] MEDS: ENOXAPARIN 40 MG/0.4 ML SYRINGE SUBCUT (08:58)
[2020-07-18] MEDS: hydroCHLOROthiazide 25 MG TABLET 12.5 MG PO (09:00)
[2020-07-18] MEDS: PANTOPRAZOLE 40 MG TABLET PO (09:03)
[2020-07-18] MEDS: lisinopriL 20 MG TABLET PO (09:03)
[2020-07-18] MEDS: ASPIRIN EC 81 MG TABLET PO (09:03)
[2020-07-18] MEDS: DULOXETINE 30 MG CAPSULE 50 MG PO (09:12)
[2020-07-18] MEDS: DULOXETINE 20 MG CAPSULE PO (10:00)
--- NOTE | 2020-07-18 10:21 | PC.NURSE ---
Addendum entered by Delmy Potts R.N. 07/18/20 12:17: At 1115 Patient saline locked and off tele for stress test. Patient denied pain. Transported via wheelchair. Original Note: Patient A/O x 4. Ambulating IND in the room. Denies chest pain with exertion or at rest. Tele on, SB/BBB, patient denies dizziness, lightheadedness, numbness or tingling in the arms. Lungs CTA, R side diminished. Patient up to restroom, voiding. Remains to NPO for stress test. C/O nausea with medications on empty stomach, Zofran PRN administered. IV patent, NS @100cc/hr. Patient is refusing SCD's. Call light in reach.
--- NOTE | 2020-07-18 14:00 | CM.DANOTE ---
DCP: Case received, EMR reviewed and met with patient. Introduced self and role. Was able to obtain information from patient regarding her baseline activity status prior to hospitalization, as well as her current living situation. Patient s a 59 year old female who admitted yesterday evening to the care of the hospitalist team. PCP: MILE Lindo. Payer: confirmed: Neil NAVARRO. Patient came to the hospital via private vehicle secondary to having left sided chest pressure. She was also having dyspnea upon exertion. Patient is here for a cardiac work up. Just completed stress test. She has history of anxiety, as well as depression. Patient was also a former smoker. Met with patient in her room. She came up from stress test recently, and was laying in bed. Conversation was short, for patient was complaining of headache. Nurse had given her some medication for this. Confirmed with patient that she is independent at her baseline. She resides here in [place] with her spouse, Slava. 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 P: Patient has discharge orders for home, but will depend upon stress test results. Collette Hancock RN/Cdl Team Truck Driver
--- NOTE | 2020-07-18 17:49 | DI.NM.S_ITS ---
DATE OF SERVICE: 07/18/2020 PROCEDURE: Pharmacological perfusion study. INDICATION: Chest pain with underlying hypertension, hyperlipidemia, history of tobacco abuse. RADIOPHARMACEUTICAL: 27.3 millicurie of technetium-99m Myoview IV was injected at stress. Please note, this is an exercise stress test/pharmacological stress study only. CARDIAC STRESS: The patient initially attempted exercise stress test. She walked on Christopher protocol for 4 minutes. However, there was a blunted heart rate response. She achieved 70 percent of target heart rate. She received a beta eunice prior. She achieved 7 METs of workload and functional aerobic impairment. Positive 42 percent. Hence, it was decided to convert exercise stress test to pharmacological perfusion study. She received IV Lexiscan as per protocol. She remained hemodynamically stable. She had mild aching during Lexiscan infusion in her chest. Baseline EKG revealed sinus rhythm. During stress, no convincing ischemic changes. No significant arrhythmias seen. RAW DATA: There is significant breast shadow seen. GATED STUDY: Stress LV ejection fraction 65 percent without any obvious wall motion abnormalities. Resting end-diastolic volume 96 mL. Lung/heart ratio 0.30, which is within normal limits. MYOCARDIAL PERFUSION: Stress supine images revealed a small to moderate size, mildly decreased perfusion of distal anterior wall extending into the distal lateral wall, which got significantly improved during prone images suggestive of breast tissue attenuation artifact. During prone images, there was minimal distal lateral perfusion defect. CONCLUSION: I will call this study likely a normal myocardial perfusion study with evidence of breast tissue attenuation artifact, which got significantly improved during prone images, as stated above. During raw images, significant breast shadow was seen. No ischemic EKG changes. Overall left ventricular function is preserved. Overall this is a low-risk myocardial perfusion study. Amy Thurston - [place]/serina/deanna doc#: [id number]/job#: [id number] dd: 07/18/2020 16:37:00 dt: 07/18/2020 17:34:00 DICTATING MD/COPIES TO: Rick Santana MD COPIES MNE: JESSE;
--- NOTE | 2020-07-18 17:54 | PM.DS.1 ---
History of Present Illness History of Present Illness Chief complaint: states might have blockage in heart Narrative: Per H and P of Kyle Navas 07/17/20: Ms. Amy Thurston is a 59 year old female was a former smoker with a past medical history of GERD with esophagitis, hypertension, hyperlipidemia, hypothyroidism, fibromyalgia, prediabetes and anxiety with depression who presents to the ER with chest pain. The patient reports having left parasternal chest pain that is constant and aching, nonpleuritic with radiation to the left scapula. The patient has a history of extensive reflux disease and esophagitis and states his pain is completely different. She further endorses she had a Shola and Shola COVID-19 vaccine 2 weeks ago. The patient reports associated nausea and dyspnea which is exertional initially when walking up hill or climbing stairs but over the last couple of days becomes short of breath with walking on level surfaces. Her symptoms are exacerbated with activity and improved at rest. She states she has never had this kind of pain before and denies personal or family history of cardiac disease. Patient does have a history headaches and has not experienced anything out of character though does report headache now following treatment with nitroglycerin. She reports no fevers or chills, nasal congestion or sore throat. Chest chest pain as above but denies palpitations or racing heart beat. She has had no coughs or wheezing. She denies epigastric or abdominal pain, has had a versus nausea but has had no vomiting. She has had no diarrhea or constipation, hematochezia or melena. The patient is typically active and exercises regularly. Upon arrival to the ER the patient has temperature 98.8?, heart rate of 86, blood pressure 160/82, respirations 22 saturating 98% on room air. Initial EKG shows sinus rhythm rate of seventy-five without ectopy or block, inverted T-waves are noted in V2 which is changed from a prior tracing on 08/11/2018. Chest x-ray reveals right basilar atelectasis without infiltrations or pulmonary effusions. Mediastinum and heart size are normal. On laboratory analysis her CBC is unremarkable, she has a PT of 13.4 and INR 1.2 and a PTT of 33. D-dimer is 257 and within normal range for age adjustment. Chemistries are all within normal limits with a BUN of 14 and creatinine 0.68 a nonfasting glucose 103. She has a total bilirubin of 0.3, his T of 33?, ALT of 45 and alkaline phosphatase of 73. Her lipase is 1 weight. Her total CK is 64 and her troponin is less than 0.012. COVID screening is negative. In the ER the patient received aspirin 324 mg, nitroglycerin sublingual x3 with topical base, metoprolol 50 mg p.o.. Chest pain all but resolved nitro from an 8/10 to residual dull aching sensation. The patient is admitted to the hospitalist service for chest pain rule out ACS. Discharge Providers Provider Date of admission: 07/17/20 21:15 Discharge Date: 07/18/20 Primary care physician: MILE Lindo Consults: 07/17/20 22:54 Consult to Dietitian, Adult Routine Comment: Reason For Exam: Chest pain, hx GERD w/esophagitis Consult to Discharge Planning Routine Comment: Discharge provider: Amanuel Zamora MD Summary Hospital Course Discharge Diagnosis: 1. Chest pain, with negative stress test, resolved at discharge 2. GERD 3. Hypertension, essential 4. Hyperlipidemia 5. Hypothyroidism 6. Fibromyalgia 7. Anxiety and depression Hospital Course: Ms. Thurston initially presented with pain and shortness of breath. She was admitted to rule out cardiac cause. Her EKG showed sinus bradycardia, and nonspecific twave abnormalities. She had serial troponins that were negative. She had stress test completed that was low risk. She had an ECHO done that was unremarkable except for a questionable mild hypokinesis along the distal anterior segment. She should follow up with her PCP within 2 weeks. Status at Discharge Cognitive/behavioral status at discharge: oriented Functional status at discharge: independent ambulation Overall status at discharge: patient is back to baseline Time Spent with Patient Time spent: Greater than 30 minutes Exam Vital Signs (past 8 hours): - 07/18/20 13:08 07/18/20 16:12 Temperature 97.5 F L 97.2 F L Pulse Rate 58 L 63 Respiratory Rate 16 17 Blood Pressure 110/67 102/67 Pulse Oximetry 96 95 Oxygen Delivery Method Room Air Oxygen Flow Rate 0 Narrative Exam Narrative: GENERAL APPEARANCE: well developed, obese female with a BMI of 33.7 sitting up in bed briskly responsive in no acute distress. HEENT: Normocephalic, PERRLA, conjunctiva clear, EOMs intact without nystagmus, mucous membranes are moist and pink. NECK/THYROID: Well-healed surgical scar anterior neck, neck supple, no JVD, no carotid bruit, no thyromegaly, trachea midline. LYMPH NODES: no cervical or supraclavicular lymphadenopathy. SKIN: [place], warm and dry, no visible rashes or lesions. HEART: regular rate and rhythm, S1-S2, no murmur, no rubs or gallops, brisk capillary refill, no peripheral edema. LUNGS: clear to auscultation bilaterally, no coarseness crackles or wheezing, no cough present, no conversational dyspnea. CHEST: Symmetrical movement, no accessory muscle use, good tidal volume, no pain on AP or lateral compression. ABDOMEN: Soft, no distention, no abdominal tenderness, no guarding or peritoneal signs, no organomegaly, no flank or suprapubic tenderness, active bowel tones. BACK: Normal curvature, nontender to palpation, no CVA tenderness on percussion EXTREMITIES: moves all extremities, strength is 5/5 and symmetrical, no deformities or joint effusions, no clubbing or cyanosis. NEUROLOGIC: AAO x4, no focal neurologic deficits, cranial nerves II-XII grossly intact, sensation intact to light touch, hearing grossly normal to speech. PSYCH: Patient is briskly interactive, cooperative with stable behavior, denies anxiety or depression symptoms, no thoughts of self-harm Objective Labs Result Diagrams: 07/17/20 19:35 07/18/20 04:56 Labs: Laboratory Results - last 24 hr 07/17/20 07/17/20 07/17/20 19:35 19:35 19:35 WBC 9.7 RBC 4.73 Hgb 14.1 Hct 41.7 MCV 88.3 MCH 29.9 MCHC 33.9 RDW 14.3 Plt Count 274 Neut % (Auto) 68.2 Lymph % (Auto) 23.2 L [place] % (Auto) 6.8 Eos % (Auto) 0.8 L Baso % (Auto) 1.0 Neut # (Auto) 6600 Lymph # (Auto) 2300 [place] # (Auto) 700 Eos # (Auto) 100 Baso # (Auto) 100 PT 13.4 H INR 1.2 APTT 33 D-Dimer Sodium 137 Potassium 3.6 Chloride 100 Carbon Dioxide 28 BUN 14 Creatinine 0.68 Estimated GFR > 60.0 BUN/Creatinine Ratio 20.6 Glucose 103 H Hemoglobin A1c Calcium 9.7 Total Bilirubin 0.3 AST 33 ALT 45 H Alkaline Phosphatase 73 Total Creatine Kinase 64 CK-MB (CK-2) TNP CK-MB (CK-2) Rel Index TNP Troponin I < 0.012 Total Protein 7.6 Albumin 4.4 Globulin 3.2 Albumin/Globulin Ratio 1.4 Triglycerides Cholesterol LDL Cholesterol, Calc HDL Cholesterol Lipase 108 TSH SARS-CoV-2 (PCR) 07/17/20 07/17/20 07/17/20 19:35 21:21 23:51 WBC RBC Hgb Hct MCV MCH MCHC RDW Plt Count Neut % (Auto) Lymph % (Auto) [place] % (Auto) Eos % (Auto) Baso % (Auto) Neut # (Auto) Lymph # (Auto) [place] # (Auto) Eos # (Auto) Baso # (Auto) PT INR APTT D-Dimer 257 H Sodium Potassium Chloride Carbon Dioxide BUN Creatinine Estimated GFR BUN/Creatinine Ratio Glucose Hemoglobin A1c Calcium Total Bilirubin AST ALT Alkaline Phosphatase Total Creatine Kinase CK-MB (CK-2) CK-MB (CK-2) Rel Index Troponin I < 0.012 Total Protein Albumin Globulin Albumin/Globulin Ratio Triglycerides Cholesterol LDL Cholesterol, Calc HDL Cholesterol Lipase TSH SARS-CoV-2 (PCR) Negative 07/18/20 07/18/20 07/18/20 04:56 04:56 04:56 WBC RBC Hgb Hct MCV MCH MCHC RDW Plt Count Neut % (Auto) Lymph % (Auto) [place] % (Auto) Eos % (Auto) Baso % (Auto) Neut # (Auto) Lymph # (Auto) [place] # (Auto) Eos # (Auto) Baso # (Auto) PT INR APTT D-Dimer Sodium 131 L Potassium 4.2 Chloride 97 L Carbon Dioxide 27 BUN 16 Creatinine 0.68 Estimated GFR > 60.0 BUN/Creatinine Ratio 23.5 H Glucose 89 Hemoglobin A1c 5.3 Calcium 8.9 Total Bilirubin AST ALT Alkaline Phosphatase Total Creatine Kinase CK-MB (CK-2) CK-MB (CK-2) Rel Index Troponin I < 0.012 Total Protein Albumin Globulin Albumin/Globulin Ratio Triglycerides 109 Cholesterol 143 LDL Cholesterol, Calc 74 HDL Cholesterol 47 Lipase TSH 2.18 SARS-CoV-2 (PCR) [facility] Medical History Actinic keratosis Anxiety (2000) Arthritis BCC (basal cell carcinoma of skin) Chickenpox (Unknown) Depression Eczema (2012) Excessive daytime sleepiness Fatigue Fibroids Fibromyalgia (2002) Foot pain Gastroenteritis Generalized headaches GERD (gastroesophageal reflux disease) Hayfever HSV (herpes simplex virus) anogenital infection Hyperlipidemia Hypertension Hypothyroidism Knee pain, right Mediastinal mass Memory change Migraines Obesity (BMI 35.0-39.9 without comorbidity) Pelvic pain Postmenopausal Prediabetes Recurrent UTI Rheumatoid arthritis Rosacea Shoulder pain (2014) Skin cancer Snoring Urinary incontinence (2004) Surgical History Anesthesia History of cholecystectomy History of colonoscopy (2005) History of colonoscopy with polypectomy (06/04/17) History of esophagogastroduodenoscopy (EGD) (06/04/17) History of esophagogastroduodenoscopy (EGD) (09/30/17) History of partial hysterectomy History of removal of laparoscopic gastric banding device (01/08/18) History of right knee surgery (03/12/18) History of total right knee replacement (TKR) (01/30/18) Hx of laparoscopic gastric banding S/P total knee arthroplasty Status post delivery (1988) Status post knee surgery (2002) Family History Father Age: 87 Essential hypertension Hyperlipidemia Sister Age: 61 Essential hypertension Grandfather Breast cancer Mother No problems noted. Social History marital status: household members: spouse occupational status: employed Smoking Status: Former smoker alcohol intake: current substance use type: does not use Discharge Plan Discharge Plan Patient Disposition: Home Provider Discharge Comment: Ms. Thurston was admitted with shortness of breath and chest pain. She was evaluated for a possible heart attack and this was negative. She did a stress test which showed low risk. She had an ECHO that only showed questionable slight wall motion abnormality. This should just be noted for future monitoring as needed. She was feeling improved and was stable to go home. Discharge orders & Medications Prescriptions: Continued (DME) Respironics Dreamstation CPAP Qty: 1 RF: 0 pantoprazole 40 mg tablet,delayed release (DR/EC) 40 mg PO BID Qty: 180 RF: 1 acyclovir 400 mg tablet 400 mg PO TID PRN (Reason: HSV outbreak) Qty: 20 RF: 3 atorvastatin 10 mg tablet 10 mg PO BEDTIME Qty: 90 RF: 3 cyclobenzaprine 10 mg tablet 10 mg PO TID PRN (Reason: muscle spasm) Qty: 15 RF: 1 diclofenac sodium [Voltaren] 1 % gel 2 g TOP QID PRN (Reason: pain, mild) Qty: 100 RF: 2 duloxetine 20 mg capsule,delayed release(DR/EC) 20 mg PO DAILY Qty: 90 RF: 3 estradiol 0.01 % (0.1 mg/gram) cream 1 g VAG DAILY Qty: 42.5 RF: 11 lisinopril-hydrochlorothiazide 20-12.5 mg tablet 1 tab PO DAILY Qty: 90 RF: 3 ondansetron HCl [Zofran] 4 mg tablet 4 mg PO Q6H PRN (Reason: nausea and vomiting) Qty: 12 RF: 0 valacyclovir 1 gram tablet 500 mg PO DAILY RF: 0 gabapentin [Neurontin] 300 mg capsule 600 mg PO BEDTIME RF: 0 eletriptan [Relpax] 40 mg tablet 40 mg PO .COMPLEX PRN (Reason: Headache) RF: 0 hydroxyzine pamoate 25 mg capsule 25 mg PO PRN PRN (Reason: Itching) RF: 0 lidocaine 5 % adhesive patch,medicated 5 patch transdermal Q24W RF: 0 Discontinued duloxetine 30 mg capsule,delayed release(DR/EC) 30 mg PO DAILY Qty: 90 RF: 3 Follow up/Referrals: Eva Tadeo ARNP [Primary Care Provider] - Discharge Health Status Multidrug resistant organism: No MDRO Diet/Activity/Treatments Diet: Diet as Tolerated Discharge Data Primary Care Provider: Eva Tadeo Attending Provider: Kyle Navas [facility] - Admit Advanced Care Plan / Current Medications Measures: #47 ? Advanced Care Plan Clinician documentation instruction: document at admission. [] I confirmed that the patient's Advance Care Plan is present, code status is documented, or surrogate decision maker is listed in the patient?s medical record. [SATISFIES [facility] PERFORMANCE] If Yes, Stop Here [] The patient?s Advance Care plan is not present because: (select) [[facility] PERFORMANCE EXCEPTION/EXCLUSION] [] I confirmed today that the patient does not wish or was not able to name a surrogate decision maker or provide an Advance Care Plan. [] Hospice care is currently being provided or has been provided this calendar year [] I did NOT confirm today the presence of an Advance Care Plan or surrogate decision maker documented within the patient's medical record. [DOES NOT SATISFY [facility] PER[employer]] #130 - Documentation of Current Medications in the Medical Record Clinician documentation instruction: use macro the first time you see a patient. [] I have utilized all available immediate resources to obtain, update, or review the patient?s current medications. [SATISFIES [facility]] If Yes, Stop Here [] The patient is not eligible for medication reconciliation; the patient is in an emergent medical situation where delaying treatment would jeopardize the patient?s health. [[facility] PERFORMANCE EXCEPTION/EXCLUSION] [] I did NOT confirm, update or review the patient's current list of medications today. [DOES NOT SATISFY [facility] PERFORMANCE] MIPS - CL Central Venous Catheter Placement Measure: #76 ? Prevention of Central Venous Catheter (CVC) ? Related Bloodstream Infection Clinician documentation instruction: use macro every time you place a central line. [] All elements of Maximal Sterile Barrier Technique, including hand hygiene, skin prep, and sterile ultrasound technique (if used) were followed. [SATISFIES [employer] PER[employer]CE] If Yes, Stop Here [] If ?No?, the medical reason all elements were NOT used for medical reason [] (ex. emergent condition). [] Maximal Sterile Barrier Technique was not followed, no reason provided [DOES NOT SATISFY [facility] PERFORMANCE] MIPS - DC Heart Failure Measures: #5 - Heart Failure (HF): Angiotensin-Converting Enzyme (GAMAL) Inhibitor or Angiotensin Receptor Jessenia (ARB) Therapy for Left Ventricular Systolic Dysfunction (LVSD) and #8 - Heart Failure (HF): Beta-Jessenia Therapy for Left Ventricular Systolic Dysfunction (LVSD) Clinician documentation instruction: use macro at every CHF discharge. [] The patient has current or prior documentation of left ventricular ejection fraction (LVEF) less than 40%, or moderate or severely depressed left ventricular systolic function. Answer both: [SATISFIES [employer] PERFORMANCE] [] The patient was prescribed or already taking an Angiotensin-Converting Enzyme (GAMAL) Inhibitor, or Angiotensin Receptor Jessenia (ARB). [] The patient was prescribed or already taking a beta-jessenia. If Yes to Both, Stop Here [] Patient not prescribed/taking: [MIPS PERFORMANCE EXCEPTION/EXCLUSION] [] GAMAL or ARB for medical/patient/system reason(s) including [] (ex. allergy, intolerance, contraindication) [] Beta-jessenia for medical/patient/system reason(s) including [] (ex. allergy, intolerance, contraindication) [] Patient not prescribed/taking: [DOES NOT SATISFY [employer]IPS PERFORMANCE] [] GAMAL or ARB, no reason given [] Beta-jessenia, no reason given
--- NOTE | 2020-07-18 18:14 | PC.NURSE ---
Discharge note: Patient left via wheel chair accompanied by AUTOMATIC VULCANIZING LEAD OPERATOR to private vehicle with all her belongings. IV and tele removed, checked room for remaining belongings. Patient education and discharge packet given, signed by patient and this RN.
--- NOTE | 2020-07-25 14:47 | PC.NURSE ---
Late Entry; NS infusion initiated 07/18 at 06:28, stopped by MD discharge order at 17:50.
== END 2020-07-18 18:11 | disposition home or self-care (01) ==
LOC: ED 19:33 → AC 21:16
PROVIDERS: Admitting Provider Nurse Practitioner Adult Health; Emergency Provider Emergency Medicine; PCP Nurse Practitioner; Referring Provider Emergency Medicine; Visit Provider Nurse Practitioner Adult Health
DX: R07.9 Chest pain, unspecified (principal); I10 Essential (primary) hypertension; E78.5 Hyperlipidemia, unspecified; K21.9 Gastro-esophageal reflux disease without esophagitis; R06.09 Other forms of dyspnea; E03.9 Hypothyroidism, unspecified; M79.7 Fibromyalgia; G89.29 Other chronic pain; F41.9 Anxiety disorder, unspecified; F32.9 Major depressive disorder, single episode, unspecified; Z20.822 Contact with and (suspected) exposure to COVID-19
CPT/HCPCS: 36415; 71045; 78451; 80048; 80053; 80061; 82550; 83036; 83690; 84443; 84484; 85025; 85379; 85610; 85730; 87635; 93005; 93010; 93017; 93306; 94762; 96361; 96372; 96374; 96375; 96376; 99284; G0378; A9502; C9113; J1650; J1885; J2405; J2785

== ENCOUNTER → 2020-08-04 12:15 | Outpatient (CLI) | payer OTHER, SELFPAY ==
[2020-07-17 22:08] VITALS: BMI 33.6
--- NOTE | 2020-08-04 | DI.MRI.S_ITS ---
PROCEDURE: MR ELBOW RT WO CON INDICATIONS: Lateral epicondylitis, right elbow TECHNIQUE: Noncontrast coronal proton density fast spin echo and T2 fast spin echo with fat saturation, axial and sagittal T1 spin echo and T2 fast spin echo with fat saturation through the elbow. COMPARISON: None. FINDINGS: Image quality: Excellent. Lateral structures: The lateral ulnar collateral ligament and radial collateral ligament both appear thickened near their humeral insertion. The overlying common extensor tendon also appears thickened with heterogeneous T2 hyperintense signal and adjacent soft tissue edema. Medial structures: The ulnar collateral ligament appears intact. The overlying common flexor tendon appears normal. The ulnar nerve appears normal in size and signal within the cubital tunnel. Anterior structures: The biceps and brachialis tendons both appear intact as they insert onto the proximal radius and ulna, respectively. No bicipitoradial bursal fluid. The median and radial neurovascular bundles appear normal; no focal muscle atrophy to suggest nerve impingement. Posterior structures: The conjoint triceps tendon from the long and lateral heads appears intact. The medial head of the triceps tendon also appears normal, with direct muscle insertion onto the olecranon. No olecranon bursal fluid. Bone and cartilage: No bone marrow contusions or fractures. No osteochondral injuries. IMPRESSION: 1. Finding is consistent with lateral epicondylitis with sprain/low-grade partial-thickness tear involving proximal lateral collateral ligaments and tendinosis and low to moderate grade partial-thickness tear involving common extensor tendon origin. 2. No marrow edema. No fracture or dislocation. No significant joint effusion. 3. Other tendons and ligaments of elbow joint are intact. Dictated by: Johann Flores M.D. on 08/04/2020 at 14:37 Approved by: Johann Flores M.D. on 08/04/2020 at 14:47
== END ==
PROVIDERS: PCP Nurse Practitioner; Referring Provider Nurse Practitioner; Visit Provider Orthopaedic Surgery
DX: M77.11 Lateral epicondylitis, right elbow (principal); S53.491A Other sprain of right elbow, initial encounter
CPT/HCPCS: 73221

== ENCOUNTER → 2020-09-14 07:35 | Outpatient (CLI) | payer OTHER, SELFPAY ==
[2020-07-17 22:08] VITALS: BMI 33.6
--- NOTE | 2020-09-14 | DI.MRI.S_ITS ---
PROCEDURE: MR FOOT RT WO CON INDICATIONS: Unspecified sprain of right foot, initial encounter TECHNIQUE: Noncontrast sagittal T1 spin echo and T2 fast spin echo with fat saturation, long-axis T1 spin echo and T2 fast spin echo with fat saturation, short-axis T1 spin echo and T2 fast spin echo with fat saturation through the forefoot. COMPARISON: None. FINDINGS: No evidence of acute marrow contusion or discrete fracture line seen. There is 3rd toe flexor tenosynovitis. Otherwise the flexor and extensor tendons appear grossly intact. 1st MTP joint effusion is present. Hallux sesamoids within normal limits. There is chronic atrophy of the interosseous muscles between the 3rd and 4th and 4th and 5th toes. 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 Diffuse subcutaneous edema throughout the forefoot, nonspecific. No specific evidence of plantar plate injury. The Lisfranc ligament appears grossly intact. IMPRESSION: Diffuse forefoot subcutaneous edema. 3rd toe flexor tenosynovitis. This raises the possibility of acute strain although recommend correlation to clinical exam findings. Additional chronic and incidental findings as above. Dictated by: Jeffery Weinberg M.D. on 09/14/2020 at 10:34 Approved by: Jeffery Weinberg M.D. on 09/14/2020 at 10:53
== END ==
PROVIDERS: PCP Nurse Practitioner; Referring Provider Orthopaedic Surgery; Visit Provider Orthopaedic Surgery
DX: S93.601A Unspecified sprain of right foot, initial encounter (principal); M65.871 Other synovitis and tenosynovitis, right ankle and foot; X58.XXXA Exposure to other specified factors, initial encounter
CPT/HCPCS: 73718

== ENCOUNTER 2020-11-11 13:50 | Emergency (ER) | payer OTHER, SELFPAY ==
[2020-07-17 22:08] VITALS: BMI 33.6
[2020-11-11 14:07] VITALS: BP 135/78; PULSE 102; RESP 24; TEMP 36.6; O2SAT 99
--- NOTE | 2020-11-11 14:45 | PC.NURSE ---
Pt has a rash to bilat feet, legs, hands and arms. Red and raised. Pt is constantly itching
--- NOTE | 2020-11-11 15:25 | ED_ITS ---
HPI - Skin/Abscess/Foreign Bdy General Chief complaint: Skin/Abscess/Foreign Body Stated complaint: rash all over, itching, started 2.5wks ago Time Seen by Provider: 11/11/20 15:06 Source: patient Mode of arrival: Family Vehicle Limitations: no limitations History of Present Illness HPI narrative: Patient is a 60-year-old female here for evaluation of which she states is a rash that started on her right leg it is now spread throughout her body appeared has been going on for the past 2 and half weeks. She has been seen in the past for this and was given oral steroids but she has not taken these. She has been using topical steroids. Also has been taking Benadryl and other antihistamines to try to help the itching. No fevers. No known new exposures. She also states she has been attempting to get in to see Dermatology but is been unable to. Related Data Home Medications Medication Instructions Recorded Confirmed Respironics Dreamstation CPAP #1 ea 11/18/18 11/05/20 eletriptan 40 mg tablet (Relpax) 40 mg PO .COMPLEX PRN 05/12/20 11/05/20 valacyclovir 1 gram tablet 500 mg PO DAILY 05/12/20 11/05/20 hydroxyzine pamoate 25 mg capsule 25 mg PO PRN PRN 07/17/20 11/05/20 Previous Rx's Medication Instructions Recorded atorvastatin 10 mg tablet 10 mg PO BEDTIME #90 tab 04/19/20 cyclobenzaprine 10 mg tablet 10 mg PO TID PRN #15 tab 04/19/20 diclofenac sodium 1 % topical gel 2 g TOP QID PRN #100 gram 04/19/20 (Voltaren) duloxetine 20 mg capsule,delayed 20 mg PO DAILY #90 cap 04/19/20 release lisinopril 20 1 tab PO DAILY #90 tab 04/19/20 mg-hydrochlorothiazide 12.5 mg tablet ondansetron HCl 4 mg tablet 4 mg PO Q6H PRN #12 tab 04/19/20 (Zofran) pantoprazole 40 mg tablet,delayed 40 mg PO BID #180 tab 07/13/20 release nitroglycerin 0.4 mg sublingual 0.4 mg SUBLINGUAL Q5M PRN #25 tab 07/19/20 tablet acyclovir 400 mg tablet 400 mg PO TID PRN #20 tab 08/30/20 gabapentin 300 mg capsule 600 mg PO BID #120 cap 08/30/20 (Neurontin) lidocaine 5 % topical patch 5 patch TRANSDERMAL Q24W #30 ea 09/29/20 estradiol 1 g VAG DAILY #42.5 gram 11/02/20 triamcinolone acetonide 0.1 % 1 applic TOPICAL BID 14 Days #30 g 11/05/20 topical cream Allergies Allergy/AdvReac Type Severity Reaction Status Date / Time oxycodone [From Percocet] Allergy ITCHING Verified 11/11/20 14:07 NSAIDS (Non-Steroidal AdvReac Intermediate GI feels Verified 11/11/20 14:07 Anti-Inflamma like I've been punched in the stomach Review of Systems Constitutional Constitutional: Denies fever(s) Respiratory Respiratory: Reports system reviewed and no additional complaints, except as documented Musculoskeletal Comments: No joint pain Integumentary/Breasts Skin/Breast: Reports as per HPI Neurologic Neurologic: Reports system reviewed and no additional complaints, except as documented Hematologic/Lymphatic On Anticoagulants: No Patient History Medical History Actinic keratosis Anxiety (2000) Arthritis BCC (basal cell carcinoma of skin) Chickenpox (Unknown) Depression Eczema (2012) Epigastric pain Excessive daytime sleepiness Fatigue Fibroids Fibromyalgia (2002) Foot pain Gastric reflux Gastroenteritis Generalized headaches GERD (gastroesophageal reflux disease) Hayfever HSV (herpes simplex virus) anogenital infection Hyperlipidemia Hypertension Hypothyroidism Knee pain, right Mediastinal mass Memory change Migraines Obesity (BMI 35.0-39.9 without comorbidity) Pelvic pain Postmenopausal Prediabetes Recurrent UTI Rheumatoid arthritis Rosacea Shoulder pain (2014) Skin cancer Snoring Urinary incontinence (2004) Surgical History Anesthesia History of cholecystectomy History of colonoscopy (2005) History of colonoscopy with polypectomy (06/04/17) History of esophagogastroduodenoscopy (EGD) (06/04/17) History of esophagogastroduodenoscopy (EGD) (09/30/17) History of partial hysterectomy History of removal of laparoscopic gastric banding device (01/08/18) History of right knee surgery (03/12/18) History of total right knee replacement (TKR) (01/30/18) Hx of laparoscopic gastric banding S/P total knee arthroplasty Status post delivery (1988) Status post knee surgery (2002) Family History Father Age: 87 Essential hypertension Hyperlipidemia Sister Age: 61 Essential hypertension Grandfather Breast cancer Mother No problems noted. Social History marital status: household members: spouse occupational status: employed Smoking Status: Former smoker alcohol intake: current substance use type: does not use Smoking Status: Former smoker tobacco type: cigarettes alcohol intake frequency: holidays/special occasions only Substance Use Type: does not use and other Exam Initial Vital Signs Initial Vital Signs: Vital Signs Temperature 97.8 F 11/11/20 14:07 Pulse Rate 102 H 11/11/20 14:07 Respiratory Rate 24 11/11/20 14:07 Blood Pressure 135/78 11/11/20 14:07 Pulse Oximetry 99 11/11/20 14:07 Const General: cooperative and comfortable HENMT Head: normal to inspection and normocephalic Resp Effort & Inspection: normal respiratory effort Cardio Rate: regular rate Skin Other: Patient has multiple areas of what appeared to be pumps/vesicles located on her lower extremities and upper extremities. Minimal surrounding erythema. No pustules. No ulcerations. Neuro General: patient alert, patient awake and patient oriented x3 Extrem General: normal to inspection and capillary refill normal Psych Appearance: grossly normal and well kempt Course Orders Ordered: ED Orders 11/11/20 15:32 Wound Culture and Gram Stain Stat Vital Signs Vital signs: Vital Signs - 8 hr 11/11/20 14:07 Temperature 97.8 F Pulse Rate 102 H Respiratory Rate 24 Blood Pressure 135/78 Pulse Oximetry 99 MDM - Skin/Abscess/Foreign Bdy MDM Narrative Medical decision making narrative: Unsure the exact etiology of the patient's symptoms however does not appear to be an infectious etiology. Has been going on for the past 2 and half weeks. No signs of anaphylaxis. Informed her that the next step in her treatment would be starting her on oral steroids. She already has a prescription for this and I informed her that she needed to start taking it as directed. Also informed her that if the oral steroids and not working that she needs to follow-up with dermatology for further evaluation and treatment. Patient expressed understanding and agreement with this. She did the prior to obtaining her written discharge instructions. Discharge Plan Departure Patient Disposition: Home Clinical Impression: Rash Instructions: DI for Rash Activity Restrictions/Additional Instructions: Recommend that you take the steroids as directed by your primary provider. You can continue the other anti-itch medications. I do recommend that you continue to try to make contact with a learning operations specialist. Return to the emergency department for any new symptoms. Prescriptions: No Action triamcinolone acetonide 0.1 % cream 1 applic topical BID 14 Days Qty: 30 RF: 1 (DME) Respironics Dreamstation CPAP Qty: 1 RF: 0 pantoprazole 40 mg tablet,delayed release (DR/EC) 40 mg PO BID Qty: 180 RF: 1 nitroglycerin 0.4 mg tablet, sublingual 0.4 mg sublingual Q5M PRN (Reason: chest pain) Qty: 25 RF: 0 acyclovir 400 mg tablet 400 mg PO TID PRN (Reason: HSV outbreak) Qty: 20 RF: 3 gabapentin [Neurontin] 300 mg capsule 600 mg PO BID Qty: 120 RF: 2 lidocaine 5 % adhesive patch,medicated 5 patch transdermal Q24W Qty: 30 RF: 1 estradiol 0.01 % (0.1 mg/gram) cream 1 g VAG DAILY Qty: 42.5 RF: 1 atorvastatin 10 mg tablet 10 mg PO BEDTIME Qty: 90 RF: 3 cyclobenzaprine 10 mg tablet 10 mg PO TID PRN (Reason: muscle spasm) Qty: 15 RF: 1 diclofenac sodium [Voltaren] 1 % gel 2 g TOP QID PRN (Reason: pain, mild) Qty: 100 RF: 2 duloxetine 20 mg capsule,delayed release(DR/EC) 20 mg PO DAILY Qty: 90 RF: 3 lisinopril-hydrochlorothiazide 20-12.5 mg tablet 1 tab PO DAILY Qty: 90 RF: 3 ondansetron HCl [Zofran] 4 mg tablet 4 mg PO Q6H PRN (Reason: nausea and vomiting) Qty: 12 RF: 0 valacyclovir 1 gram tablet 500 mg PO DAILY RF: 0 eletriptan [Relpax] 40 mg tablet 40 mg PO .COMPLEX PRN (Reason: Headache) RF: 0 hydroxyzine pamoate 25 mg capsule 25 mg PO PRN PRN (Reason: Itching) RF: 0 Referrals: Eva Tadeo ARNP [Primary Care Provider] -
== END 2020-11-11 15:25 | disposition home or self-care (01) ==
PROVIDERS: Emergency Provider Emergency Medicine; PCP Nurse Practitioner
DX: R21 Rash and other nonspecific skin eruption (principal)
CPT/HCPCS: 87070; 87075; 87077; 87147; 87205; 99281; 99282

== ENCOUNTER → 2021-01-05 08:02 | Outpatient (CLI) | payer OTHER, SELFPAY ==
[2020-12-13 13:17] VITALS: BMI 33.6
[2021-01-05 10:27] LABS: COVID19 -Nasal RAPID Negative (Negative)
== END ==
PROVIDERS: PCP Nurse Practitioner; Visit Provider Nurse Practitioner
DX: R21 Rash and other nonspecific skin eruption (principal); R53.83 Other fatigue; T50.B95A Adverse effect of other viral vaccines, initial encounter; R52 Pain, unspecified
CPT/HCPCS: 87070; 87075; 87205; 87252; 87635

== ENCOUNTER → 2021-01-30 11:13 | Outpatient (CLI) | payer OTHER, SELFPAY ==
[2020-12-13 13:17] VITALS: BMI 33.6
[2021-01-30 17:20] LABS: COVID19 -Nasal RAPID Negative (Negative)
== END ==
PROVIDERS: PCP Nurse Practitioner; Visit Provider Nurse Practitioner Family
DX: Z20.822 Contact with and (suspected) exposure to COVID-19 (principal); Z01.812 Encounter for preprocedural laboratory examination
CPT/HCPCS: 87635

== ENCOUNTER 2021-01-31 09:00 | Day surgery (SDC) | payer OTHER, SELFPAY ==
[2020-12-13 13:17] VITALS: BMI 33.6
[2021-01-31] MEDS: PROPARACAINE 0.5% OPHTH SOL 2 DROPS EYE-OP (09:44)
[2021-01-31] MEDS: CATARACT EYE COMPOUND (10 DROPS/SYRINGE) 3 DROPS EYE-OP (09:45)
[2021-01-31 09:49] VITALS: BP 118/81; PULSE 88; RESP 16; TEMP 36.4; O2SAT 97; BMI 38.9
--- NOTE | 2021-01-31 10:27 | PM.PREOP ---
Pre-operative Note Interval Note History & Physical reviewed/Exam performed by Physician: Yes Changes to H&P: No
--- NOTE | 2021-01-31 10:27 | PM.OP.1 ---
Operative Date/Time/Diagnoses Pre-op diagnosis: Nuclear Cataract Left eye Post-op diagnosis: same Procedure & Clinicians Same procedure as scheduled: Yes Surgeon: Faustino Mclaughlin Anesthesia Type: MAC +/- and Sedation Operative Notes Procedure in detail: Patient brought to the operating suite. Tetracaine drops placed in the left eye. Patient was prepped and draped in sterile manner. Wire lid speculum was placed in the eye. Betadine drops were placed on the eye. This was irrigated. Lidocaine jelly was placed on the eye. A paracentesis port was created with a side-port blade. 0.1 mL 1% preservative free lidocaine was injected into the anterior chamber. The anterior chamber was deepened with viscoelastic. 2.6 mm keratome was used to create a temporal clear corneal incision. Cystotome and Utrata forceps were used to create continuous tear capsulorrhexis. Balanced salt solution was used to hydro dissect the nucleus. The phacoemulsification handpiece was inserted and the nucleus was removed using the stop and chop technique. The irrigation aspiration handpiece was inserted and the remaining cortex was removed. Anterior chamber was deepened with viscoelastic. An Campbell DIB00 intraocular lens with a power of 23.0 was injected into the capsular bag. Irrigation aspiration handpiece was inserted and the remaining viscoelastic was removed. Incision was hydrated with balanced salt solution and found to be leak free with pressure with Weck-Jacqueline sponges. 0.1 mL Vigamox injected anterior chamber. 0.3 mL Kenalog 10 mg was injected subconjunctivally. Lid speculum was removed. The patient left the operating room in excellent condition. Complications: none Post-operative Condition: stable Disposition: same day surgery
[2021-01-31] MEDS: LIDOCAINE 2% (GLYDO) 6 ML GEL TOP (10:45)
[2021-01-31] MEDS: PHENYLEPHRINE/LIDOCAINE VIAL (OR) 0.2 ML EYE-OP (10:45)
[2021-01-31] MEDS: MOXIFLOXACIN INJ 4 MG/0.8 ML VIAL 0.5 MG EYE-OP (10:45)
[2021-01-31] MEDS: HYALURONATE SODIUM 30 MG-10 MG/ML SYRINGES 1 BOX INTRAOCULA (10:45)
[2021-01-31] MEDS: TETRACAINE 0.5% OPHTH DROPS 4 ML 2 DROPS EYE-OP (10:46)
[2021-01-31] MEDS: BALANCED SALT IRRIG SOLN NO.2 500 ML, EPINEPHrine 1 MG IRR (10:47)
[2021-01-31 11:02] VITALS: BP 119/82; PULSE 77; RESP 16; TEMP 36.7; O2SAT 95
--- NOTE | 2021-01-31 11:10 | SUR.PHASEII ---
Pt sleeping off and on fairly drowsy. resting comfortably, denies pain or nausea.
[2021-01-31] MEDS: TRIAMCINOLONE 50 MG/5 ML VIAL INJ (11:35)
[2021-01-31 11:45] VITALS: BP 113/72; PULSE 75; RESP 16; TEMP 36.4; O2SAT 95
== END 2021-01-31 11:44 | disposition home or self-care (01) ==
PROVIDERS: PCP Nurse Practitioner; Referring Provider Ophthalmology; Visit Provider Ophthalmology
PROC: (CPT 66984; principal; 2021-01-31 10:45)
DX: H25.12 Age-related nuclear cataract, left eye (principal); E78.5 Hyperlipidemia, unspecified; F32.9 Major depressive disorder, single episode, unspecified; I10 Essential (primary) hypertension; M79.7 Fibromyalgia; G43.909 Migraine, unspecified, not intractable, without status migrainosus; M06.9 Rheumatoid arthritis, unspecified
CPT/HCPCS: 66984; J0171; J2250; J3010; J3301

== ENCOUNTER → 2021-02-06 15:07 | Outpatient (CLI) | payer OTHER, SELFPAY ==
[2020-07-17 22:08] VITALS: BMI 33.6
[2020-12-13 13:17] VITALS: BMI 33.6
--- NOTE | 2021-02-06 | DI.MG.S_ITS ---
BILATERAL DIGITAL SCREENING MAMMOGRAM 3D/2D WITH CAD: 02/06/2021 CLINICAL: Routine screening. Family history of breast cancer. Comparison is made to exams dated: 11/20/2019 mammogram - [facility], 07/29/2017 mammogram, and 05/21/2007 mammogram - [facility]. The tissue of both breasts is predominantly fatty. Current study was also evaluated with a Computer Aided Detection (CAD) system. No significant masses, calcifications, or other findings are seen in either breast. There has been no significant interval change. IMPRESSION: NEGATIVE There is no mammographic evidence of malignancy. A 1 year screening mammogram is recommended. This exam was interpreted at Station ID: [id number]. NOTE: For mammograms, a report in lay terms will be sent to the patient. Approximately 15% of breast malignancies will not be visualized mammographically. In the management of a palpable breast mass, a negative mammogram must not discourage biopsy of a clinically suspicious lesion. Electronically Signed By: David Dickson acr/sancho:02/06/2021 15:46:23 letter sent: Normal Exam ACR BI-RADS Category 1: Negative [id number]
== END ==
PROVIDERS: PCP Nurse Practitioner; Referring Provider Nurse Practitioner; Visit Provider Nurse Practitioner
DX: Z12.31 Encounter for screening mammogram for malignant neoplasm of breast (principal); Z80.3 Family history of malignant neoplasm of breast
CPT/HCPCS: 77063; 77067

== ENCOUNTER → 2021-02-08 09:59 | Outpatient (CLI) | payer OTHER, SELFPAY ==
[2020-12-13 13:17] VITALS: BMI 33.6
[2021-02-08 10:54] LABS: Add Manual Diff / Slide Review NO; Basophils Absolute Auto 0 /uL (0-100); Basophils Percent Auto 0.5 % (0-2); Eosinophils Absolute Auto 100 /uL (0-450); Eosinophils Percent Auto 1.4 % (2-4); Hematocrit 41.8 % (36-46); Hemoglobin 13.6 g/dL (12.0-16.0); Lymphocytes Absolute Auto 1600 /uL (1100-4500); Lymphocytes Percent Auto 25.5 % (25-40); Mean Corpuscular HGB Conc 32.5 % (30-36); Mean Corpuscular Hemoglobin 29.2 PG (26-34); Mean Corpuscular Volume 89.6 fL (80-100); Monocytes Absolute Auto 400 /uL (0-900); Monocytes Percent Auto 6.6 % (3-14); Neutrophils Absolute Auto 4200 /uL (1500-7000); Platelet Count 307 X10^3/uL (150-400); Red Blood Cell Count 4.66 X10^6/uL (4.0-5.2); Red Cell Distribution Width 13.6 % (11.6-14.8); White Blood Cell Count 6.3 X10^3/uL (4.5-11.0)
[2021-02-08 11:08] LABS: Alanine Aminotransferase 43 IU/L (<35); Albumin 4.2 g/dL (3.5-5.0); Albumin Globulin Ratio 1.4 (1.0-2.8); Alkaline Phosphatase 76 U/L (38-126); Aspartate Aminotransferase 30 IU/L (14-36); BUN Creatinine Ratio 20.2 (6-22); Bilirubin Total 0.3 mg/dL (0.2-1.3); Blood Urea Nitrogen 17 mg/dL (7-17); Calcium 9.6 mg/dL (8.4-10.2); Carbon Dioxide 30 mmol/L (22-32); Chloride 102 mmol/L (98-107); Cholesterol 214 mg/dL (140-199); Estimated Glomerular Filt Rate > 60.0 mL/min (>60); Globulin 3.1 g/dL (1.7-4.1); Glucose 84 mg/dL (70-100); HDL Cholesterol 53 mg/dL (40-60); HEMOLYSIS < 15 (0-50); LDL Cholesterol Calculated 127 mg/dL (<100); Potassium 4.6 mmol/L (3.4-5.1); Sodium 139 mmol/L (137-145); Total Protein 7.3 g/dL (6.3-8.2); Triglycerides 171 mg/dL (35-150)
[2021-02-08 14:08] LABS: Free T3, Triiodothyronine Free 3.98 pg/mL (2.77-5.27); Free T4, Direct Thyroxine 1.12 ng/dL (0.78-2.19)
[2021-02-08 14:22] LABS: Thyroid Stimulating Hormone 1.44 uIU/mL (0.47-4.68)
== END ==
PROVIDERS: PCP Nurse Practitioner; Referring Provider Nurse Practitioner; Visit Provider Nurse Practitioner
DX: R00.2 Palpitations (principal); E78.2 Mixed hyperlipidemia
CPT/HCPCS: 36415; 80053; 80061; 83735; 84439; 84443; 84481; 85025

== ENCOUNTER → 2021-02-13 09:22 | Outpatient (CLI) | payer OTHER, SELFPAY ==
[2020-12-13 13:17] VITALS: BMI 33.6
[2021-02-13 11:12] LABS: COVID19 -Nasal RAPID Negative (Negative)
== END ==
PROVIDERS: PCP Nurse Practitioner; Visit Provider Physician Assistant
DX: Z01.812 Encounter for preprocedural laboratory examination (principal); Z20.822 Contact with and (suspected) exposure to COVID-19
CPT/HCPCS: 87635

== ENCOUNTER 2021-02-14 07:23 | Day surgery (SDC) | payer OTHER, SELFPAY ==
[2020-12-13 13:17] VITALS: BMI 33.6
[2021-02-14 08:09] VITALS: BMI 38.9
[2021-02-14 08:16] VITALS: BP 115/73; PULSE 78; RESP 16; TEMP 36.8; O2SAT 95
[2021-02-14 08:18] LABS: COVID19 -Nasal RAPID Negative (Negative)
[2021-02-14] MEDS: PROPARACAINE 0.5% OPHTH SOL 2 DROPS EYE-OP (08:20)
[2021-02-14] MEDS: CATARACT EYE COMPOUND (10 DROPS/SYRINGE) 3 DROPS EYE-OP ×3 (08:22→08:32)
--- NOTE | 2021-02-14 09:02 | P.OP_ITS ---
Operative Date/Time/Diagnoses Pre-op diagnosis: Nuclear cataract right eye Procedure & Clinicians Procedure: Cataract Surgery Same procedure as scheduled: Yes Surgeon: Faustino Mclaughlin Anesthesia Type: MAC +/- and Sedation Operative Notes Procedure in detail: Patient brought to the operating suite. Tetracaine drops placed in the right eye. Patient was prepped and draped in sterile manner. Wire lid speculum was placed in the eye. Betadine drops were placed on the eye. This was irrigated. Lidocaine jelly was placed on the eye. A paracentesis port was created with a side-port blade. 0.1 mL 1% preservative free lidocaine was injected into the anterior chamber. The anterior chamber was deepened with viscoelastic. 2.6 mm keratome was used to create a temporal clear corneal incision. Cystotome and Utrata forceps were used to create continuous tear capsulorrhexis. Balanced salt solution was used to hydro dissect the nucleus. The phacoemulsification handpiece was inserted and the nucleus was removed using the stop and chop technique. The irrigation aspiration handpiece was inserted and the remaining cortex was removed. Anterior chamber was deepened with viscoelastic. An Campbell DU150 lens was injected into the eye. It was noted to be the wrong IOL. Additional viscoelastic was used to deepen the chamber. The lens was cut with the lens generating machine tender and removed. An Campbell DIB00 intraocular lens with a power of 23.5 was injected into the capsular bag. Irrigation aspiration handpiece was inserted and the remaining viscoelastic was removed. Incision was hydrated with balanced salt solution and found to be leak free with pressure with Weck-Jacqueline sponges. 0.1 mL Vigamox injected anterior chamber. 0.3 mL Kenalog 10 mg was injected subconjunctivally. Lid speculum was removed. The patient left the operating room in excellent condition. Complications: none Post-operative Condition: stable Disposition: same day surgery
--- NOTE | 2021-02-14 09:02 | PM.PREOP ---
Pre-operative Note Interval Note History & Physical reviewed/Exam performed by Physician: Yes Changes to H&P: No
[2021-02-14] MEDS: LACTATED RINGERS 1,000 ML 42 ML IV (09:13)
[2021-02-14] MEDS: LIDOCAINE 2% (GLYDO) 6 ML GEL TOP (09:22)
[2021-02-14] MEDS: HYALURONATE SODIUM 30 MG-10 MG/ML SYRINGES 1 BOX INTRAOCULA ×2 (09:22→09:35)
[2021-02-14] MEDS: MOXIFLOXACIN INJ 4 MG/0.8 ML VIAL 0.5 MG EYE-OP (09:22)
[2021-02-14] MEDS: TRIAMCINOLONE 50 MG/5 ML VIAL INJ (09:23)
[2021-02-14] MEDS: PHENYLEPHRINE/LIDOCAINE VIAL (OR) 0.2 ML EYE-OP (09:23)
[2021-02-14] MEDS: TETRACAINE 0.5% OPHTH DROPS 4 ML 2 DROPS EYE-OP (09:23)
[2021-02-14] MEDS: BALANCED SALT IRRIG SOLN NO.2 500 ML, EPINEPHrine 1 MG IRR (09:23)
[2021-02-14 09:56] VITALS: BP 134/89; PULSE 72; RESP 14; TEMP 36.5; O2SAT 99
== END 2021-02-14 10:10 | disposition home or self-care (01) ==
PROVIDERS: Anesthesiology; PCP Nurse Practitioner; Referring Provider Ophthalmology; Visit Provider Ophthalmology
PROC: (CPT 66984; principal; 2021-02-14 09:15)
DX: H25.11 Age-related nuclear cataract, right eye (principal); Z20.822 Contact with and (suspected) exposure to COVID-19; I10 Essential (primary) hypertension; E78.5 Hyperlipidemia, unspecified; F32.9 Major depressive disorder, single episode, unspecified; G43.909 Migraine, unspecified, not intractable, without status migrainosus; M06.9 Rheumatoid arthritis, unspecified; M79.7 Fibromyalgia
CPT/HCPCS: 66984; 87635; J0171; J2250; J3010; J3301; V2787

== ENCOUNTER → 2021-03-27 09:25 | Outpatient (CLI) | payer OTHER, SELFPAY ==
[2020-12-13 13:17] VITALS: BMI 33.6
--- NOTE | 2021-04-20 15:04 | P.HOLT.S_ITS ---
Certified Coatings Inspector Report Referral & Results Date Patient Seen: 03/27/21 Requesting provider: Eva Tadeo Indication: Palpitations Duration of monitoring (days): 14 Diary information: There were 5 patient triggered events and 3 patient diary entries All 8 of these events were associated variably with (within 45 seconds) sinus rhythm and PVCs Data: Minimum heart rate was 63 beats per minute at 06:14 on 03/29/2021 Maximum sinus heart rate was 160 beats per minute at 15:08 on 03/31/2021 Maximum overall heart rate was 167 beats per minute at 23:41 on 04/02/2021 during a run of SVT Less than 1% of identified beats were ventricular or supraventricular ectopic in origin, which would classify them as rare. There were 2 runs of SVT the fastest being the 4 beat run noted above the longest was 6 beats in duration at a rate of 132 beats per minute which suggest more atrial tachycardia than true SVT Impression: Essentially normal 14 day cardiac technician identifying simple PVCs as a possible etiology for patient's reported symptom of palpitations Clinical correlation suggested
== END ==
PROVIDERS: PCP Nurse Practitioner; Referring Provider Nurse Practitioner; Visit Provider Nurse Practitioner
DX: R00.2 Palpitations (principal)
CPT/HCPCS: 93246; 93248

== ENCOUNTER → 2021-03-31 07:16 | Outpatient (CLI) | payer OTHER, SELFPAY ==
[2020-12-13 13:17] VITALS: BMI 33.6
--- NOTE | 2021-03-31 07:17 | DI.US.S_ITS ---
PROCEDURE: US ABDOMEN LIMITED INDICATIONS: LEFT SCAPULAR LUMP TECHNIQUE: Real-time focused scanning was performed of the abdomen, with image documentation. COMPARISON: None. FINDINGS: There is a 3.1 x 1.0 x 3.3 centimeter solid, isoechoic mass in the left upper back subcutaneous fat that corresponds to clinically palpable lesion. IMPRESSION: 3.1 x 1.0 x 3.3 centimeter solid isoechoic mass corresponds to clinically palpable lesion. Mass has nonspecific imaging characteristics may represent benign etiology including lipoma or malignancy. Decision to biopsy should be based on clinical assessment. Dictated by: Sybil Henry MD, PhD on 03/31/2021 at 14:21 Approved by: Sybil Henry MD, PhD on 03/31/2021 at 14:23
== END ==
PROVIDERS: PCP Nurse Practitioner; Referring Provider Nurse Practitioner; Visit Provider Nurse Practitioner
DX: M75.92 Shoulder lesion, unspecified, left shoulder (principal)
CPT/HCPCS: 76705

== ENCOUNTER → 2021-04-17 14:05 | Outpatient (CLI) | payer OTHER, SELFPAY ==
[2020-12-13 13:17] VITALS: BMI 33.6
[2021-04-17 15:59] LABS: COVID19 -Nasal RAPID Negative (Negative)
== END ==
PROVIDERS: PCP Nurse Practitioner; Visit Provider Surgery
DX: Z01.812 Encounter for preprocedural laboratory examination (principal); Z20.822 Contact with and (suspected) exposure to COVID-19
CPT/HCPCS: 87635; C9803

== ENCOUNTER 2021-04-18 07:36 | Day surgery (SDC) | payer OTHER, SELFPAY ==
[2020-12-13 13:17] VITALS: BMI 33.6
[2021-04-13 13:40] VITALS: BMI 38.6
[2021-04-18] VITALS (8 sets, daily range): BP systolic 121–145; BP diastolic 74–84; PULSE 78–84; RESP 11–20; TEMP 36.6–36.7; O2SAT 95–100; BMI 38.6
--- NOTE | 2021-04-18 | PATH_ITS ---
[facility] Accession Number: [id number] . 01 Material submitted: . back - BACK . 01 Clinical history: . MASS . 01 Diagnosis: Soft Tissue, Back, Excision: Lipoma. [facility] 05/01/2021 1717 Local . 01 Electronically signed: . Iva Campoverde MD, Pathologist NPI- [id number] . 01 Gross description: . Received one formalin-filled container labeled with the patient's name and labeled back mass. The specimen consists of a yellow-maharaj portion of soft tissue which measures 7.0 x 4.0 x 1.5 cm. The specimen is inked blue. Eight uniforms sales representative sections are submitted in four cassettes. ([id number]) /[facility] 04/27/2021 1639 Local . 01 Pathologist provided ICD-10: D17.9 . 01 CPT . 926383 Performed at: 01 [facility] [address] [place] [address] [id number] MD Hao Polo MD Phone: [phone]
[2021-04-18] MEDS: LACTATED RINGERS 1,000 ML 100 ML IV ×2 (08:22→10:00)
--- NOTE | 2021-04-18 09:20 | PM.PREOP ---
Pre-operative Note Interval Note History & Physical reviewed/Exam performed by Physician: Yes Changes to H&P: No
[2021-04-18] MEDS: CEFAZOLIN 2 GM/20 ML SYRINGE IV (09:50)
--- NOTE | 2021-04-18 10:03 | SUR.OPER ---
Addendum entered by Ritika Pina R.N. 04/18/21 10:11: Right Lateral position, warm blankets placed covering patients lower torso/left hip/legs. Original Note: Lateral on a tinajero bag, head on pillow, gel axillary roll in place, bottom leg bent with gel pad under knee to foot, upper leg straight and supported with pillows. Upper arm supported by pillows and secured over bottom arm to padded arm board. Safety belt at hip, tape over blanket lower legs.
[2021-04-18] MEDS: BUPIVACAINE 0.25% (PF) VIAL 30 ML INJ (10:08)
--- NOTE | 2021-04-18 10:41 | PM.OP.1 ---
Operative Date/Time/Diagnoses Date of procedure: 04/18/21 Time of procedure: 10:41 Pre-op diagnosis: soft tissue mass left upper back Post-op diagnosis: same Procedure & Clinicians Procedure: excision of soft tissue mass 4 cm Same procedure as scheduled: Yes Indications: symptomatic left upper back soft tissue mass Surgeon: Robson Cho Anesthesia Type: General Operative Notes Findings: 4 cm soft tissue mass of left upper back consistent with lipoma. Estimated Blood Loss (mL): 10 Procedure in detail: The patient was brought to the operating room and placed supine. After induction of anesthesia she was placed into the right lateral decupitus position with axillary roll and appropriately padded. She was prepped and draped in sterile fashion. A time-out was performed. 1% lidocaine was infiltrated into the skin over the area of concern the left upper back.. The soft tissue mass was readily palpable. Incision over the soft tissue mass was made with a knife and the subcutaneous tissues were divided. The mass was encountered it was grasped and then it was dissected out circumferentially. Mass was then removed in its entirety and passed off the field as specimen, its appearance was consistent with a lipoma of approximately 4 cm. Hemostasis was achieved. The subcutaneous tissue was closed with Vicryl suture and the skin closed with Monocryl followed by Dermabond. Complications: none Post-operative Condition: stable Disposition: same day surgery
[2021-04-18] MEDS: ONDANSETRON 4 MG/2 ML INJ IV ×2 (10:42→11:53)
[2021-04-18] MEDS: OXYCODONE/ACETAMINOPHEN 5/325 TABLET 1 TAB PO ×2 (10:42→11:22)
[2021-04-18] MEDS: HYDROMORPHONE 2 MG INJ IV ×2 (10:43→10:57)
[2021-04-18] MEDS: LORazepam 2 MG/ML INJ 0.5 MG IV (11:06)
== END 2021-04-18 12:05 | disposition home or self-care (01) ==
PROVIDERS: PCP Nurse Practitioner; Referring Provider Surgery; Visit Provider Surgery
PROC: (CPT 21931; principal; 2021-04-18 09:15)
DX: D17.1 Benign lipomatous neoplasm of skin and subcutaneous tissue of trunk (principal); F41.9 Anxiety disorder, unspecified; E66.9 Obesity, unspecified; K21.9 Gastro-esophageal reflux disease without esophagitis; I10 Essential (primary) hypertension; E78.5 Hyperlipidemia, unspecified; M79.7 Fibromyalgia; Z68.38 Body mass index [BMI] 38.0-38.9, adult
CPT/HCPCS: 21931; J0690; J1100; J1170; J2060; J2250; J2405; J2704; J3010

== ENCOUNTER → 2021-04-19 11:06 | Outpatient (CLI) | payer OTHER, SELFPAY ==
[2020-12-13 13:17] VITALS: BMI 33.6
--- NOTE | 2021-04-19 11:07 | DI.MRI.S_ITS ---
PROCEDURE: MR HEAD/BRAIN WO/W CON INDICATIONS: vertigo TECHNIQUE: Noncontrast axial T1 spin echo, axial T2 fast spin echo, sagittal and axial FLAIR, coronal T2 fast spin echo, axial gradient echo, axial diffusion and ADC through the brain. After the administration of contrast, axial and coronal 3D VIBE or T1 spin echo with fat saturation through the brain. COMPARISON: None. FINDINGS: Image quality: Excellent. CSF Spaces: Basal cisterns are patent. No extra-axial fluid collections. Ventricles are normal in size and shape. Brain: No midline shift. No intracranial bleeds or masses. There is mild, diffuse cerebral volume loss. There are mild periventricular and subcortical white matter chronic microvascular ischemic changes. No abnormal intracranial enhancement. The brainstem appears normal. Diffusion-weighted images demonstrate no acute ischemic insults. No chronic ischemic insults. Normal intravascular flow voids are present. Dural sinuses demonstrate normal postcontrast enhancement. Skull and face: Calvarial marrow is normal in signal. Orbits appear normal. Sinuses: Sinuses and mastoids appear clear. IMPRESSION: 1. No acute intracranial disease process. 2. No areas of acute or chronic infarction. 3. No abnormal intracranial mass or suspicious postcontrast enhancement. 4. Mild, diffuse cerebral volume loss. 5. Mild periventricular and subcortical white matter chronic microvascular ischemic change. Dictated by: Sybil Henry MD, PhD on 04/19/2021 at 14:29 Approved by: Sybil Henry MD, PhD on 04/19/2021 at 14:32
== END ==
PROVIDERS: PCP Nurse Practitioner; Referring Provider Nurse Practitioner; Visit Provider Nurse Practitioner
DX: R42 Dizziness and giddiness (principal)
CPT/HCPCS: 70553; A9579

== ENCOUNTER 2021-04-27 07:30 | Outpatient (RCR) | payer OTHER, SELFPAY ==
[2020-12-13 13:17] VITALS: BMI 33.6
--- NOTE | 2021-03-22 15:57 | PT.OIE ---
Current Diagnoses Cervicalgia (03/22/21) Dizziness and giddiness (03/22/21) Past Medical History (Last Updated 02/22/21 @ 16:01 by MILE Lindo) Actinic keratosis Anxiety (2000) Arthritis BCC (basal cell carcinoma of skin) Chickenpox (Unknown) Depression Depression with anxiety Eczema (2012) Epigastric pain Excessive daytime sleepiness Fatigue Fibroids Fibromyalgia (2002) Foot pain Gastric reflux Gastroenteritis Generalized headaches GERD (gastroesophageal reflux disease) Hayfever History of cholecystectomy History of colonoscopy (2005) History of colonoscopy with polypectomy (06/04/17) History of esophagogastroduodenoscopy (EGD) (06/04/17) History of esophagogastroduodenoscopy (EGD) (09/30/17) History of partial hysterectomy History of removal of laparoscopic gastric banding device (01/08/18) History of right knee surgery (03/12/18) History of total right knee replacement (TKR) (01/30/18) HSV (herpes simplex virus) anogenital infection Hx of laparoscopic gastric banding Hyperlipidemia Hypertension Hypothyroidism Knee pain, right Lower back pain Mediastinal mass Memory change Migraines Obesity (BMI 35.0-39.9 without comorbidity) Pelvic pain Postmenopausal Prediabetes Recurrent UTI Rheumatoid arthritis Rosacea S/P total knee arthroplasty Shoulder pain (2014) Skin cancer Snoring Urinary incontinence (2004) Past Surgical History (Last Reviewed 02/10/21 @ 15:05 by MILE Lindo) Anesthesia History of cholecystectomy History of colonoscopy (2005) History of colonoscopy with polypectomy (06/04/17) History of esophagogastroduodenoscopy (EGD) (06/04/17) History of esophagogastroduodenoscopy (EGD) (09/30/17) History of partial hysterectomy History of removal of laparoscopic gastric banding device (01/08/18) History of right knee surgery (03/12/18) History of total right knee replacement (TKR) (01/30/18) Hx of laparoscopic gastric banding S/P total knee arthroplasty Status post delivery (1988) Status post knee surgery (2002) Visit Care Team Role Provider Type MILE Lindo Attending Provider Advanced Biotechnician Primary Care Provider Referring Provider Specialty: [facility] Practice Address: [address] [place] [address], [id number] Email: [email or web address] Physical Therapy Initial Evaluation PT-OP-A Visit Information Start: 03/22/21 10:43 Freq: Status: Active Protocol: Document 03/22/21 14:30 MB (Rec: 03/22/21 14:56 MB [id number]) Out-Patient Physical Therapy Visit Information Visit Information Visit Type Initial Evaluation Visit Note [employer] PPO Visit Start Time 14:30 Visit Stop Time 15:15 Total Visit Minutes 45 Visit Number 1 Evaluation Information Evaluation Date 03/22/21 PT-OP-B Current Condition Start: 03/22/21 10:43 Freq: Status: Active Protocol: Document 03/22/21 14:30 MB (Rec: 03/22/21 14:56 MB [id number]) Current Condition History of Current Condition Onset Date 02/14/21 Current Complaints Dizziness, tight and painful neck History of Current Condition Pt gets at least two hours of massage for her neck a week. Her massage therapist has not been able to get her neck to release since her cataract surgery and sleeping up on two pillows. She gets dizziness getting off the toilet too fast, looking up from phone too fast, standing up from bending over, and brushing her teeth. PMH includes natural cervical fusion from at least youth. It has caused migraines since age 13 or 14. She has had many surgeries including both cataract surgeries. 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 Pt has history of fibromyaglia and she responds well to massage. Massage gets stuff loosened up and then she tightens up again. Pt had a headache almost hospital grade yesterday. The headache came on fast and she slept. She took medication for it. Pt has not had any falls. 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 She works from home and has a 60 screen and good ergnomic set- up. Pt reports that her distance vision is worse since cataract surgery. She has halos and floaters that she has not have before. Pt states that she feels that she has more pressure in her eyes but the doctor's machine did not show increased pressure. Pt has been seeing chiropractor for her whole spine about 5 months. She had high velocity manipulation of cervical spine once. Pt has right TMJ pain and popping with depression. Pt reports numbness and tinging in both arms and hands in thumb, index and second fingers for a bout a month. In August, pt had a right ankle sprain and she was put in a boot. The boot threw her back out and she started seeing the chiropractor for her back. Her back is better. Pt reports her B ears are uncomfortable when she lies on her side. Pt reports history of two concussions when younger. She was in the hospital twice. She has a history of lumbar compression fracture. Pt reports weakness in right hand especially and she had a cross-fit injury in 2019. Both hands have been getting weaker for a couple of years. She has a history of sinus and allergy changes. Pt denies: ear pressure, performance of sit-ups, anemia , B12 deficiency, hearing change, trouble swallowing, recent overhead lifting, tinnitus. Treatment Goals Patient/Caregiver Goals To decrease dizziness and loosen neck PT-OP-C Subjective Start: 03/22/21 10:43 Freq: Status: Active Protocol: Document 03/22/21 14:30 MB (Rec: 03/22/21 14:56 MB [id number]) OP-PT Subjective Patient Comments Patient Comments See history of current condition PT-OP-J Posture/Palpation/Skin Start: 03/22/21 10:43 Freq: Status: Active Protocol: Document 03/22/21 14:30 MB (Rec: 03/22/21 15:56 MB [id number]) Posture Evaluation Comments Posture Comments Forward head, rounded shoulders, increased soft tissue, Dowager's hump PT-OP-K Range of Motion Start: 03/22/21 10:43 Freq: Status: Active Protocol: Document 03/22/21 14:30 MB (Rec: 03/22/21 15:56 MB [id number]) Cervical Spine Range of Motion Cervical Spine Active Testing Position Standing Flexion 40 Extension 35 Rotation Left 45 Rotation Right 50 Comments Pt reports discomfort with flexion from extended position . She has no dizziness with movement from extension to neutral x3 or extension to full flexion x3 TMJ Range of Motion Comments Comments Pt with loud popping right TMJ with depression and she reports pain on that side Shoulder Goniometric Range of Motion Shoulder Bilateral Shoulder ROM WFL Yes Testing Position Sitting Comments B flexion normal PT-OP-M Strength Start: 03/22/21 10:43 Freq: Status: Active Protocol: Document 03/22/21 14:30 MB (Rec: 03/22/21 15:56 MB [id number]) Shoulder Strength Shoulder Manual Muscle Testing Bilateral Flexion 5 Normal Abduction (C5) 5 Normal External Rotation 5 Normal Elbow/Forearm Strength Elbow and Forearm Manual Muscle Testing Bilateral Flexion (C6) 5 Normal Supination 4 Good Comments Pt reports wrist discomfort B and tennis elbow on the right from old crossfit injury PT-OP-Q Treatments Start: 03/22/21 10:43 Freq: Status: Active Protocol: Document 03/22/21 14:30 MB (Rec: 03/22/21 15:36 MB [id number]) Self-Care/Home Management Treatment Education Patient Education Body Mechanics,Joint Protection,Pain Management, Posture Other Education Ed pt on log roll technique and not to lift head to get up , ed on use of towel roll for cervical support, ed pt briefly on PT's feeling that her dizziness is cervicogenic and not BPPV or orthostatic hypotension and will con't assessment in future treatments PT-OP-T Assessment and Plan Start: 03/22/21 10:43 Freq: Status: Active Protocol: Document 03/22/21 14:30 MB (Rec: 03/22/21 15:56 MB [id number]) Physical Therapy Assessment Rehab Potential Rehabilitation Potential Fair Evaluation Complexity Number of Personal Factors/Comorbidities 1-2 Number of Body Systems Impaired 3 Clinical Presentation at Evaluation Evolving Impairments Impairments Activity Tolerance,Balance, Functional Activities, Functional Mobility,Pain, Posture,Sensation,Soft Tissue Mobility,Strength,Vestibular Other Impairments Personal factors include work stress and history of gettin 2 hours of massage a week and still getting increased tension within 5 days. Body systems affected include neuromuscular, musculoskeletal and vestibular. Her clinical presentation is evolving. Goals 3 It Network Architect Goal (LTG) Pt will perform progressive HEP with I including VOR, postural, breathing, self- massage, strengthening and balance exercises to improve symptoms and quality of life by 05/22/21. LTG Duration 8 weeks 2 It Network Architect Goal (LTG) Pt will perform WNLs on a standardized balance test to decrease fall risk by 05/22/21. LTG Duration 8 weeks 1 It Network Architect Goal (LTG) Pt will report a 75% improvement in dizziness with changing positions to improve quality of life by 05/22/21. LTG Duration 8 weeks Assessment Summary Assessment Pt is a 60 y/o female presenting with multiple medical co-morbidities and complaints of pain and tightness all over from fibromyalgia. She reports getting up to 2 hours of massage a week and that tension comes back. She has TMJ changes, history of many basal cell carcinomas, reports of natural cervical fusion, increased job stress, elevated BP controlled by medication, history of migraines, recent cataract surgeries, paresthesias in both forearms and fingers and inconsistent dizziness with changing positions. She reports that she slept on two pillows after cataract surgery and that her dizziness, increased neck pain and paresthesias started then. She is now back to one pillow. Orthostatic testing is negative but does reveal volatile BP and mild dizziness with BP and HR in LUE: supine 131/87, 71; standing 130/81, 79; standing 1' 123/86, 84; standing 2' 139/86, 82. VOR head thrust reveals corrective saccade more notable with left thrust. Eye ROM and saccadic eye movements, finger to nose all normal. B pupils are large and do not constrict readily to pen light in the dark. BPPV testing deferred today because pt does not report dizziness with lying down or rolling over and does not have symptoms when doing so with PT today. Pt will benefit from PT for further balance and vestibular testing , postural and relaxation education and manual work. Her lifestyle of high stress and work may be barriers to improvement. Will provide education about better lifestyle choices as appropriate. Physical Therapy Plan Frequency and Duration Frequency of Treatment 2x/Week Duration of Treatment 8 weeks Plan of Care Start Date 03/22/21 Plan of Care End Date 05/22/21 Therapeutic Interventions Therapeutic Interventions Balance Training,Canalithic Repositioning,Gait Training, Home Exercise Program,Manual Therapy,Neuromuscular Re- education,Patient/Caregiver Education,Self-Care/Home Management,Soft Tissue Mobilization,Taping, Therapeutic Activities, Therapeutic Exercises, Vestibular Rehabilitation Modalities Cold Pack/Ice Massage,Hot Packs Next Visit Focus/Plan Next Note Type Treatment Note Next Visit Plan Wagner breathing FGA and DVA testing in future treatments Self-massage with racquet ball
--- NOTE | 2021-03-30 15:21 | PT.OTN ---
Current Diagnoses Cervicalgia (03/30/21) Dizziness and giddiness (03/30/21) Physical Therapy Treatment Note PT-OP-A Visit Information Start: 03/22/21 10:43 Freq: Status: Active Protocol: Document 03/30/21 14:34 MB (Rec: 03/30/21 15:20 MB [id number]) Out-Patient Physical Therapy Visit Information Visit Information Visit Type Treatment Note Visit Note Neil PPO Visit Start Time 14:34 Visit Stop Time 15:15 Total Visit Minutes 41 Visit Number 2 Evaluation Information Evaluation Date 03/22/21 PT-OP-B Current Condition Start: 03/22/21 10:43 Freq: Status: Active Protocol: Document 03/22/21 14:30 MB (Rec: 03/22/21 14:56 MB [id number]) Current Condition History of Current Condition Onset Date 02/14/21 Current Complaints Dizziness, tight and painful neck History of Current Condition Pt gets at least two hours of massage for her neck a week. Her massage therapist has not been able to get her neck to release since her cataract surgery and sleeping up on two pillows. She gets dizziness getting off the toilet too fast, looking up from phone too fast, standing up from bending over, and brushing her teeth. PMH includes natural cervical fusion from at least youth. It has caused migraines since age 13 or 14. She has had many surgeries including both cataract surgeries. 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 Pt has history of fibromyaglia and she responds well to massage. Massage gets stuff loosened up and then she tightens up again. Pt had a headache almost hospital grade yesterday. The headache came on fast and she slept. She took medication for it. Pt has not had any falls. 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 She works from home and has a 60 screen and good ergnomic set- up. Pt reports that her distance vision is worse since cataract surgery. She has halos and floaters that she has not have before. Pt states that she feels that she has more pressure in her eyes but the doctor's machine did not show increased pressure. Pt has been seeing chiropractor for her whole spine about 5 months. She had high velocity manipulation of cervical spine once. Pt has right TMJ pain and popping with depression. Pt reports numbness and tinging in both arms and hands in thumb, index and second fingers for a bout a month. In August, pt had a right ankle sprain and she was put in a boot. The boot threw her back out and she started seeing the chiropractor for her back. Her back is better. Pt reports her B ears are uncomfortable when she lies on her side. Pt reports history of two concussions when younger. She was in the hospital twice. She has a history of lumbar compression fracture. Pt reports weakness in right hand especially and she had a cross-fit injury in 2019. Both hands have been getting weaker for a couple of years. She has a history of sinus and allergy changes. Pt denies: ear pressure, performance of sit-ups, anemia , B12 deficiency, hearing change, trouble swallowing, recent overhead lifting, tinnitus. Treatment Goals Patient/Caregiver Goals To decrease dizziness and loosen neck PT-OP-C Subjective Start: 03/22/21 10:43 Freq: Status: Active Protocol: Document 03/30/21 14:34 MB (Rec: 03/30/21 15:20 MB [id number]) OP-PT Subjective Patient Comments Patient Comments Pt states that the dizziness is getting better. She does feel like it's from her neck. She is sleeping better. She was supposed to get her back and arm worked on and asks about doing this at the same time. Pt got a four hand massage on Saturday night and felt like gimby afterwards. She is getting a neck through torso US tomorrow and will have a cyst removed from left scapular area the end of March. Pt has a monitor over left chest d/t hearing swishing of blood at night. She denies chest pain. PT-OP-J Posture/Palpation/Skin Start: 03/22/21 10:43 Freq: Status: Active Protocol: Document 03/22/21 14:30 MB (Rec: 03/22/21 15:56 MB [id number]) Posture Evaluation Comments Posture Comments Forward head, rounded shoulders, increased soft tissue, Dowager's hump PT-OP-K Range of Motion Start: 03/22/21 10:43 Freq: Status: Active Protocol: Document 03/22/21 14:30 MB (Rec: 03/22/21 15:56 MB [id number]) Cervical Spine Range of Motion Cervical Spine Active Testing Position Standing Flexion 40 Extension 35 Rotation Left 45 Rotation Right 50 Comments Pt reports discomfort with flexion from extended position . She has no dizziness with movement from extension to neutral x3 or extension to full flexion x3 TMJ Range of Motion Comments Comments Pt with loud popping right TMJ with depression and she reports pain on that side Shoulder Goniometric Range of Motion Shoulder Bilateral Shoulder ROM WFL Yes Testing Position Sitting Comments B flexion normal PT-OP-M Strength Start: 03/22/21 10:43 Freq: Status: Active Protocol: Document 03/22/21 14:30 MB (Rec: 03/22/21 15:56 MB [id number]) Shoulder Strength Shoulder Manual Muscle Testing Bilateral Flexion 5 Normal Abduction (C5) 5 Normal External Rotation 5 Normal Elbow/Forearm Strength Elbow and Forearm Manual Muscle Testing Bilateral Flexion (C6) 5 Normal Supination 4 Good Comments Pt reports wrist discomfort B and tennis elbow on the right from old crossfit injury PT-OP-Q Treatments Start: 03/22/21 10:43 Freq: Status: Active Protocol: Document 03/30/21 14:34 MB (Rec: 03/30/21 15:20 MB [id number]) Therapeutic Exercises Standing Exercises Back clinical project leader/theracane Side bilateral Comments TrP pressure levator and upper traps and cervical rotation and SB away Kids ball massage Comments Pt does not like as much Racquet ball massage Standing Exercise Name Leaning over for upper traps for MWM makes her dizzy, so stopped Side bilateral Comments Intrascapular massage, infraspinatus MWM PT-OP-T Assessment and Plan Start: 03/22/21 10:43 Freq: Status: Active Protocol: Document 03/30/21 14:34 MB (Rec: 03/30/21 15:20 MB [id number]) Physical Therapy Assessment Rehab Potential Rehabilitation Potential Fair Evaluation Complexity Number of Personal Factors/Comorbidities 1-2 Number of Body Systems Impaired 3 Clinical Presentation at Evaluation Evolving Impairments Impairments Activity Tolerance,Balance, Functional Activities, Functional Mobility,Pain, Posture,Sensation,Soft Tissue Mobility,Strength,Vestibular Other Impairments Personal factors include work stress and history of gettin 2 hours of massage a week and still getting increased tension within 5 days. Body systems affected include neuromuscular, musculoskeletal and vestibular. Her clinical presentation is evolving. Goals 3 Shelter Goal (LTG) Pt will perform progressive HEP with I including VOR, postural, breathing, self- massage, strengthening and balance exercises to improve symptoms and quality of life by 05/22/21. LTG Duration 8 weeks 2 Shelter Goal (LTG) Pt will perform WNLs on a standardized balance test to decrease fall risk by 05/22/21. LTG Duration 8 weeks 1 Chipper Machine Operator Goal (LTG) Pt will report a 75% improvement in dizziness with changing positions to improve quality of life by 05/22/21. LTG Duration 8 weeks Assessment Summary Assessment Ed pt in benefits of white noise to help with the anxiety she feels at night d/t swishing sound. Treatment today consisted of self- massage and given so many different areas and devices tried, took the appointment time and both PT and pt feel it was a good use of time. The biggest takeaway is that MWM is beneficial because the muscles help with the TrP release. Con't per plan below. Pt is going to con't with PT for dizziness and neck and will not add back to this course given limited visits. Postural exercises may help back pain. Physical Therapy Plan Frequency and Duration Frequency of Treatment 2x/Week Duration of Treatment 8 weeks Plan of Care Start Date 03/22/21 Plan of Care End Date 05/22/21 Therapeutic Interventions Therapeutic Interventions Balance Training,Canalithic Repositioning,Gait Training, Home Exercise Program,Manual Therapy,Neuromuscular Re- education,Patient/Caregiver Education,Self-Care/Home Management,Soft Tissue Mobilization,Taping, Therapeutic Activities, Therapeutic Exercises, Vestibular Rehabilitation Modalities Cold Pack/Ice Massage,Hot Packs Next Visit Focus/Plan Next Note Type Treatment Note Next Visit Plan Wagner breathing, pelvic realignment exercises FGA and DVA testing in future treatments
--- NOTE | 2021-04-05 12:58 | PT.OTN ---
Current Diagnoses Cervicalgia (04/05/21) Dizziness and giddiness (04/05/21) Physical Therapy Treatment Note PT-OP-A Visit Information Start: 03/22/21 10:43 Freq: Status: Active Protocol: Document 04/05/21 12:16 MB (Rec: 04/05/21 12:58 MB [id number]) Out-Patient Physical Therapy Visit Information Visit Information Visit Type Treatment Note Visit Note Neil NAVARRO Ongoing dizziness assessment Visit Start Time 12:16 Visit Stop Time 12:56 Total Visit Minutes 40 Visit Number 3 Evaluation Information Evaluation Date 03/22/21 PT-OP-B Current Condition Start: 03/22/21 10:43 Freq: Status: Active Protocol: Document 03/22/21 14:30 MB (Rec: 03/22/21 14:56 MB [id number]) Current Condition History of Current Condition Onset Date 02/14/21 Current Complaints Dizziness, tight and painful neck History of Current Condition Pt gets at least two hours of massage for her neck a week. Her massage therapist has not been able to get her neck to release since her cataract surgery and sleeping up on two pillows. She gets dizziness getting off the toilet too fast, looking up from phone too fast, standing up from bending over, and brushing her teeth. PMH includes natural cervical fusion from at least youth. It has caused migraines since age 13 or 14. She has had many surgeries including both cataract surgeries. 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 Pt has history of fibromyaglia and she responds well to massage. Massage gets stuff loosened up and then she tightens up again. Pt had a headache almost hospital grade yesterday. The headache came on fast and she slept. She took medication for it. Pt has not had any falls. 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 She works from home and has a 60 screen and good ergnomic set- up. Pt reports that her distance vision is worse since cataract surgery. She has halos and floaters that she has not have before. Pt states that she feels that she has more pressure in her eyes but the doctor's machine did not show increased pressure. Pt has been seeing chiropractor for her whole spine about 5 months. She had high velocity manipulation of cervical spine once. Pt has right TMJ pain and popping with depression. Pt reports numbness and tinging in both arms and hands in thumb, index and second fingers for a bout a month. In August, pt had a right ankle sprain and she was put in a boot. The boot threw her back out and she started seeing the chiropractor for her back. Her back is better. Pt reports her B ears are uncomfortable when she lies on her side. Pt reports history of two concussions when younger. She was in the hospital twice. She has a history of lumbar compression fracture. Pt reports weakness in right hand especially and she had a cross-fit injury in 2019. Both hands have been getting weaker for a couple of years. She has a history of sinus and allergy changes. Pt denies: ear pressure, performance of sit-ups, anemia , B12 deficiency, hearing change, trouble swallowing, recent overhead lifting, tinnitus. Treatment Goals Patient/Caregiver Goals To decrease dizziness and loosen neck PT-OP-C Subjective Start: 03/22/21 10:43 Freq: Status: Active Protocol: Document 04/05/21 12:16 MB (Rec: 04/05/21 12:58 MB [id number]) OP-PT Subjective Patient Comments Patient Comments Pt states that the dizziness came back on Saturday. She was dizzy picking something up and bending over to play with dogs. She was decorating the tree as well. She describes light-headedness and wooziness . She is using monitor on her heart for when she sleeps at night and can hear her heart swooshy. She saw the chiropractor on Saturday who worked on her neck and she felt a little better afterwards. PT-OP-J Posture/Palpation/Skin Start: 03/22/21 10:43 Freq: Status: Active Protocol: Document 03/22/21 14:30 MB (Rec: 03/22/21 15:56 MB [id number]) Posture Evaluation Comments Posture Comments Forward head, rounded shoulders, increased soft tissue, Dowager's hump PT-OP-K Range of Motion Start: 03/22/21 10:43 Freq: Status: Active Protocol: Document 03/22/21 14:30 MB (Rec: 03/22/21 15:56 MB [id number]) Cervical Spine Range of Motion Cervical Spine Active Testing Position Standing Flexion 40 Extension 35 Rotation Left 45 Rotation Right 50 Comments Pt reports discomfort with flexion from extended position . She has no dizziness with movement from extension to neutral x3 or extension to full flexion x3 TMJ Range of Motion Comments Comments Pt with loud popping right TMJ with depression and she reports pain on that side Shoulder Goniometric Range of Motion Shoulder Bilateral Shoulder ROM WFL Yes Testing Position Sitting Comments B flexion normal PT-OP-M Strength Start: 03/22/21 10:43 Freq: Status: Active Protocol: Document 03/22/21 14:30 MB (Rec: 03/22/21 15:56 MB [id number]) Shoulder Strength Shoulder Manual Muscle Testing Bilateral Flexion 5 Normal Abduction (C5) 5 Normal External Rotation 5 Normal Elbow/Forearm Strength Elbow and Forearm Manual Muscle Testing Bilateral Flexion (C6) 5 Normal Supination 4 Good Comments Pt reports wrist discomfort B and tennis elbow on the right from old crossfit injury PT-OP-Q Treatments Start: 03/22/21 10:43 Freq: Status: Active Protocol: Document 04/05/21 12:16 MB (Rec: 04/05/21 12:58 MB [id number]) Therapeutic Exercises Supine Exercises Buteyko breathing Supine Exercise Name Ed in theory and performance, start exercise 1 and diaphragm breathing Comments See assessment PT-OP-T Assessment and Plan Start: 03/22/21 10:43 Freq: Status: Active Protocol: Document 04/05/21 12:16 MB (Rec: 04/05/21 12:58 MB [id number]) Physical Therapy Assessment Rehab Potential Rehabilitation Potential Fair Evaluation Complexity Number of Personal Factors/Comorbidities 1-2 Number of Body Systems Impaired 3 Clinical Presentation at Evaluation Evolving Impairments Impairments Activity Tolerance,Balance, Functional Activities, Functional Mobility,Pain, Posture,Sensation,Soft Tissue Mobility,Strength,Vestibular Other Impairments Personal factors include work stress and history of gettin 2 hours of massage a week and still getting increased tension within 5 days. Body systems affected include neuromuscular, musculoskeletal and vestibular. Her clinical presentation is evolving. Goals 3 Maxillofacial Prosthetics Dentist Goal (LTG) Pt will perform progressive HEP with I including VOR, postural, breathing, self- massage, strengthening and balance exercises to improve symptoms and quality of life by 05/22/21. LTG Duration 8 weeks 2 Maxillofacial Prosthetics Dentist Goal (LTG) Pt will perform WNLs on a standardized balance test to decrease fall risk by 05/22/21. LTG Duration 8 weeks 1 Detention Goal (LTG) Pt will report a 75% improvement in dizziness with changing positions to improve quality of life by 05/22/21. LTG Duration 8 weeks Assessment Summary Assessment Initiated Buteyko breathing today with pt in hook lying with head and neck supported and legs up on plinth. Pt does not wish for mouth to be taped. HR and O2 sats in L index finger before breathin BPM and 95%. 1st rep: 13 sec and O2 sats 91% (of note, pt with increased soft tissue abdomen and this may affect O2 sats in supine). Sats improve to 99% and HR 76 BPM after first exercise. Pt is moving diaphragm. 2nd rep: 17 sec, sats 98% and HR 76 BPM; 3rd rep: 15 sec. PT [address] book on abdomen to help decrease sound of exhale to improve passive exhale. 4th rep: 24 sec and HR 72 BPM and O2 sats 98%--better relaxed exhalation with cues and book on stomach . 5th rep: 19 sec and HR 71% and sats 96% and breath is more quiet and slow. Last rep: 21 sec and O2 sats do not improve and HR 71 BPM. Pt has not been using a CPAP she was supposed to use to help limb oxygenation. PT ed pt on benefits of CPAP if needed to help not wake up at night and to assist with restorative sleep for fibromyalgia. Pt works up to 12 hours, 6x/wk and her work stress is a barrier to PT. Physical Therapy Plan Frequency and Duration Frequency of Treatment 2x/Week Duration of Treatment 8 weeks Plan of Care Start Date 03/22/21 Plan of Care End Date 05/22/21 Therapeutic Interventions Therapeutic Interventions Balance Training,Canalithic Repositioning,Gait Training, Home Exercise Program,Manual Therapy,Neuromuscular Re- education,Patient/Caregiver Education,Self-Care/Home Management,Soft Tissue Mobilization,Taping, Therapeutic Activities, Therapeutic Exercises, Vestibular Rehabilitation Modalities Cold Pack/Ice Massage,Hot Packs Next Visit Focus/Plan Next Note Type Treatment Note Next Visit Plan Motion Sensitivity Quotient and then VOMS, check orthostatics again Buteyko sera breathing Pelvic realignment exercises FGA and DVA testing in future treatments
--- NOTE | 2021-04-14 07:28 | PT-OP ANOTE ---
Pt cancelled 0730 appointment same day. There is no reason able to be seen by PT. PT read Eva Tadeo's note from pt's visit with her this week. Will send Eva Tadeo this note for patient care coordination. Noted that brain MRI and possible MRA will be ordered, consider second opinion about eye surgery being cause of vertigo, consider Meniere's, consider neurology and that PT can stop PT if it is not helpful for her symptoms. This PT's clinical opinion is cervicogenic dizziness related to poor neck positioning with sleeping upright after last eye surgery and that her symptoms are compounded by her high stress and long work hours. Pt gets hours of massage a week and this has not really helped her and PT feels that her work lifestyle, posture, and body habitus are contributing factors. Pt has not reported any hearing changes and so Meniere's and acoustic neuroma are less likely. Eye surgery is also unlikely except for the factor of her poor sleeping position provoking her neck. Her dizziness is with bending over and standing up. PT will try a VOMS, HIT, DVA and Motion Sensitivity Quotient if pt comes to future PT treatments. Pt denied dizziness rolling over and so BPPV testing was not in the overall thought of dizziness. Motion Sensitivity Quotient will include Mayda-Hallpike positioning. PT triaged breathing exercises to help with sympathetic overload, tension, posture and self-care. Unsure if pt is doing exercises. Will check in with her when she next comes to PT. If she has a no show or another same day cancellation, may consider d/cing PT.
--- NOTE | 2021-04-14 07:51 | PT-OP ANOTE ---
For further clarification, pt's dizziness is with bending over and standing up and orthostatic testing recorded on evaluation was negative.
--- NOTE | 2021-04-20 16:51 | PT-OP ANOTE ---
PT canceled d/t pt sick.
--- NOTE | 2021-04-27 10:10 | PT.OTN ---
Addendum entered and electronically signed by Nuvia Palacios PT 04/27/21 10:11: Send to Eva Tadeo Original Note: Current Diagnoses Cervicalgia (04/27/21) Dizziness and giddiness (04/27/21) Physical Therapy Treatment Note PT-OP-A Visit Information Start: 03/22/21 10:43 Freq: Status: Active Protocol: Document 04/27/21 07:30 MB (Rec: 04/27/21 08:15 MB [id number]) Out-Patient Physical Therapy Visit Information Visit Information Visit Type Treatment Note Visit Note Neil PPO Visit Start Time 07:30 Visit Stop Time 08:15 Total Visit Minutes 45 Visit Number 4 Evaluation Information Evaluation Date 03/22/21 PT-OP-B Current Condition Start: 03/22/21 10:43 Freq: Status: Active Protocol: Document 03/22/21 14:30 MB (Rec: 03/22/21 14:56 MB [id number]) Current Condition History of Current Condition Onset Date 02/14/21 Current Complaints Dizziness, tight and painful neck History of Current Condition Pt gets at least two hours of massage for her neck a week. Her massage therapist has not been able to get her neck to release since her cataract surgery and sleeping up on two pillows. She gets dizziness getting off the toilet too fast, looking up from phone too fast, standing up from bending over, and brushing her teeth. PMH includes natural cervical fusion from at least youth. It has caused migraines since age 13 or 14. She has had many surgeries including both cataract surgeries. 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 Pt has history of fibromyaglia and she responds well to massage. Massage gets stuff loosened up and then she tightens up again. Pt had a headache almost hospital grade yesterday. The headache came on fast and she slept. She took medication for it. Pt has not had any falls. 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 She works from home and has a 60 screen and good ergnomic set- up. Pt reports that her distance vision is worse since cataract surgery. She has halos and floaters that she has not have before. Pt states that she feels that she has more pressure in her eyes but the doctor's machine did not show increased pressure. Pt has been seeing chiropractor for her whole spine about 5 months. She had high velocity manipulation of cervical spine once. Pt has right TMJ pain and popping with depression. Pt reports numbness and tinging in both arms and hands in thumb, index and second fingers for a bout a month. In August, pt had a right ankle sprain and she was put in a boot. The boot threw her back out and she started seeing the chiropractor for her back. Her back is better. Pt reports her B ears are uncomfortable when she lies on her side. Pt reports history of two concussions when younger. She was in the hospital twice. She has a history of lumbar compression fracture. Pt reports weakness in right hand especially and she had a cross-fit injury in 2019. Both hands have been getting weaker for a couple of years. She has a history of sinus and allergy changes. Pt denies: ear pressure, performance of sit-ups, anemia , B12 deficiency, hearing change, trouble swallowing, recent overhead lifting, tinnitus. Treatment Goals Patient/Caregiver Goals To decrease dizziness and loosen neck PT-OP-C Subjective Start: 03/22/21 10:43 Freq: Status: Active Protocol: Document 04/27/21 07:30 MB (Rec: 04/27/21 08:15 MB [id number]) OP-PT Subjective Patient Comments Patient Comments Pt states that she is very concerned about MRI brain results. She was told that she was very young to have the cerebral loss. Pt had left thoracic lipoma or cyst taken out last week. Pt has had concerns about memory issues for a year. She is going to retire soon to help manage stress. She and her will retire to [employer]. She has been under a lot of stress with work. PT-OP-J Posture/Palpation/Skin Start: 03/22/21 10:43 Freq: Status: Active Protocol: Document 03/22/21 14:30 MB (Rec: 03/22/21 15:56 MB [id number]) Posture Evaluation Comments Posture Comments Forward head, rounded shoulders, increased soft tissue, Dowager's hump PT-OP-K Range of Motion Start: 03/22/21 10:43 Freq: Status: Active Protocol: Document 03/22/21 14:30 MB (Rec: 03/22/21 15:56 MB [id number]) Cervical Spine Range of Motion Cervical Spine Active Testing Position Standing Flexion 40 Extension 35 Rotation Left 45 Rotation Right 50 Comments Pt reports discomfort with flexion from extended position . She has no dizziness with movement from extension to neutral x3 or extension to full flexion x3 TMJ Range of Motion Comments Comments Pt with loud popping right TMJ with depression and she reports pain on that side Shoulder Goniometric Range of Motion Shoulder Bilateral Shoulder ROM WFL Yes Testing Position Sitting Comments B flexion normal PT-OP-M Strength Start: 03/22/21 10:43 Freq: Status: Active Protocol: Document 03/22/21 14:30 MB (Rec: 03/22/21 15:56 MB [id number]) Shoulder Strength Shoulder Manual Muscle Testing Bilateral Flexion 5 Normal Abduction (C5) 5 Normal External Rotation 5 Normal Elbow/Forearm Strength Elbow and Forearm Manual Muscle Testing Bilateral Flexion (C6) 5 Normal Supination 4 Good Comments Pt reports wrist discomfort B and tennis elbow on the right from old crossfit injury PT-OP-Q Treatments Start: 03/22/21 10:43 Freq: Status: Active Protocol: Document 04/27/21 07:30 MB (Rec: 04/27/21 10:10 MB [id number]) Neuro Re-Education Treatment Other Activities VOMS and HIT Comments Performed VOMS today and pt denies head, dizziness, fogginess and nausea at rest and then with the sequence of smooth pursuits, horizontal saccades, vertical saccades, horizontal VOR, vertical VOR, visual sensitivity and convergence testing. HIT also negative for dizziness and corrective saccade Self-Care/Home Management Treatment Activities Self-Care/Home Management Activities Ed pt to try to back off reading more on the internet about cerebral loss, ed pt in techniques for self-care including walking, breathing, considering lifestyle as far as following up with provider about Mediterranean diet, omega 3, magnesium, that PT can con't to assist with checking response to yoga activities, con't massages and consider going for walks for relaxation. Pt is making a lot of lifestyle changes in the future. PT re-ed pt on cervicogenic, cardiac, vestibular and neurological dizziness symptoms PT-OP-T Assessment and Plan Start: 03/22/21 10:43 Freq: Status: Active Protocol: Document 04/27/21 07:30 MB (Rec: 04/27/21 08:15 MB [id number]) Physical Therapy Assessment Rehab Potential Rehabilitation Potential Fair Evaluation Complexity Number of Personal Factors/Comorbidities 1-2 Number of Body Systems Impaired 3 Clinical Presentation at Evaluation Evolving Impairments Impairments Activity Tolerance,Balance, Functional Activities, Functional Mobility,Pain, Posture,Sensation,Soft Tissue Mobility,Strength,Vestibular Other Impairments Personal factors include work stress and history of gettin 2 hours of massage a week and still getting increased tension within 5 days. Body systems affected include neuromuscular, musculoskeletal and vestibular. Her clinical presentation is evolving. Goals 3 Transcribing Operator Head Goal (LTG) Pt will perform progressive HEP with I including VOR, postural, breathing, self- massage, strengthening and balance exercises to improve symptoms and quality of life by 05/22/21. LTG Duration 8 weeks 2 Longterm Goal (LTG) Pt will perform WNLs on a standardized balance test to decrease fall risk by 05/22/21. LTG Duration 8 weeks 1 Transcribing Operator Head Goal (LTG) Pt will report a 75% improvement in dizziness with changing positions to improve quality of life by 05/22/21. LTG Duration 8 weeks Assessment Summary Assessment PT reviewed brain MRI and phototypesetting equipment monitor strip results before treatment. Noted cerebral volume loss changes on report and pt is very concerned about this and is following up with provider and neurologist about it. She is also going to make large lifestyle changes including [facility] and moving [facility] in the future. She is receptive and knowledgable about other lifestyle changes regarding diet, stress and exercise. athletic monitor did show some tachy episodes when pt was symptomatic. Overall, PT does feel that activities that help regulate HRV including walking, breathing and yoga can help this symptom . Overall, VOMS testing is negative today for vestibular component to symptoms. HIT is also negative. PT defers DVA test since HIT is negative. Once again, she denies dizziness with rolling over and so BPPV testing also deferred. PT can perform Motion Sensitivity Quotient in future treatments. Overall, the bending over and standing up dizziness can be related to head and neck position, tension, changes and torque. A postural orthostatic tachycardia presentation is not totally ruled out except that orthostatic testing was negative previously. PT can check BP with Motion Sensitivity Testing, though BP will likely increase with repetitive testing. Con't PT for further testing and to see if pt can tolerate progression to her yoga activities. Pt would really like to rule everything out and asked about diagnostics looking at her neck/brain and cervical blood flow (she stated MRA). Physical Therapy Plan Frequency and Duration Frequency of Treatment 2x/Week Duration of Treatment 8 weeks Plan of Care Start Date 03/22/21 Plan of Care End Date 05/22/21 Therapeutic Interventions Therapeutic Interventions Balance Training,Canalithic Repositioning,Gait Training, Home Exercise Program,Manual Therapy,Neuromuscular Re- education,Patient/Caregiver Education,Self-Care/Home Management,Soft Tissue Mobilization,Taping, Therapeutic Activities, Therapeutic Exercises, Vestibular Rehabilitation Modalities Cold Pack/Ice Massage,Hot Packs Next Visit Focus/Plan Next Note Type Treatment Note Next Visit Plan Motion Sensitivity Quotient, check orthostatics again Buteyko sera breathing Pelvic realignment exercises Yoga exercises
--- NOTE | 2021-05-11 15:34 | PT.OPDS ---
Current Diagnoses Cervicalgia (04/27/21) Dizziness and giddiness (04/27/21) Visit Care Team Role Provider Type MILE Lindo Attending Provider Advanced Mud Jack Operator Primary Care Provider Referring Provider Specialty: Family Practice Address: [address] [place] [address], [facility] Email: [email or web address] Visit Number Visit Number 4 Discharge Summary PT-OP-B Current Condition Start: 03/22/21 10:43 Freq: Status: Active Protocol: Document 03/22/21 14:30 MB (Rec: 03/22/21 14:56 MB [id number]) Current Condition History of Current Condition Onset Date 02/14/21 Current Complaints Dizziness, tight and painful neck History of Current Condition Pt gets at least two hours of massage for her neck a week. Her massage therapist has not been able to get her neck to release since her cataract surgery and sleeping up on two pillows. She gets dizziness getting off the toilet too fast, looking up from phone too fast, standing up from bending over, and brushing her teeth. PMH includes natural cervical fusion from at least youth. It has caused migraines since age 13 or 14. She has had many surgeries including both cataract surgeries. 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 Pt has history of fibromyaglia and she responds well to massage. Massage gets stuff loosened up and then she tightens up again. Pt had a headache almost hospital grade yesterday. The headache came on fast and she slept. She took medication for it. Pt has not had any falls. 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 She works from home and has a 60 screen and good ergnomic set- up. Pt reports that her distance vision is worse since cataract surgery. She has halos and floaters that she has not have before. Pt states that she feels that she has more pressure in her eyes but the doctor's machine did not show increased pressure. Pt has been seeing chiropractor for her whole spine about 5 months. She had high velocity manipulation of cervical spine once. Pt has right TMJ pain and popping with depression. Pt reports numbness and tinging in both arms and hands in thumb, index and second fingers for a bout a month. In August, pt had a right ankle sprain and she was put in a boot. The boot threw her back out and she started seeing the chiropractor for her back. Her back is better. Pt reports her B ears are uncomfortable when she lies on her side. Pt reports history of two concussions when younger. She was in the hospital twice. She has a history of lumbar compression fracture. Pt reports weakness in right hand especially and she had a cross-fit injury in 2019. Both hands have been getting weaker for a couple of years. She has a history of sinus and allergy changes. Pt denies: ear pressure, performance of sit-ups, anemia , B12 deficiency, hearing change, trouble swallowing, recent overhead lifting, tinnitus. Treatment Goals Patient/Caregiver Goals To decrease dizziness and loosen neck PT-OP-C Subjective Start: 03/22/21 10:43 Freq: Status: Active Protocol: Document 04/27/21 07:30 MB (Rec: 04/27/21 08:15 MB [id number]) OP-PT Subjective Patient Comments Patient Comments Pt states that she is very concerned about MRI brain results. She was told that she was very young to have the cerebral loss. Pt had left thoracic lipoma or cyst taken out last week. Pt has had concerns about memory issues for a year. She is going to retire soon to help manage stress. She and her will retire to [employer]. She has been under a lot of stress with work. PT-OP-J Posture/Palpation/Skin Start: 03/22/21 10:43 Freq: Status: Active Protocol: Document 03/22/21 14:30 MB (Rec: 03/22/21 15:56 MB [id number]) Posture Evaluation Comments Posture Comments Forward head, rounded shoulders, increased soft tissue, Dowager's hump PT-OP-K Range of Motion Start: 03/22/21 10:43 Freq: Status: Active Protocol: Document 03/22/21 14:30 MB (Rec: 03/22/21 15:56 MB [id number]) Cervical Spine Range of Motion Cervical Spine Active Testing Position Standing Flexion 40 Extension 35 Rotation Left 45 Rotation Right 50 Comments Pt reports discomfort with flexion from extended position . She has no dizziness with movement from extension to neutral x3 or extension to full flexion x3 TMJ Range of Motion Comments Comments Pt with loud popping right TMJ with depression and she reports pain on that side Shoulder Goniometric Range of Motion Shoulder Bilateral Shoulder ROM WFL Yes Testing Position Sitting Comments B flexion normal PT-OP-M Strength Start: 03/22/21 10:43 Freq: Status: Active Protocol: Document 03/22/21 14:30 MB (Rec: 03/22/21 15:56 MB [id number]) Shoulder Strength Shoulder Manual Muscle Testing Bilateral Flexion 5 Normal Abduction (C5) 5 Normal External Rotation 5 Normal Elbow/Forearm Strength Elbow and Forearm Manual Muscle Testing Bilateral Flexion (C6) 5 Normal Supination 4 Good Comments Pt reports wrist discomfort B and tennis elbow on the right from old crossfit injury PT-OP-T Assessment and Plan Start: 03/22/21 10:43 Freq: Status: Active Protocol: Document 05/11/21 15:34 MB (Rec: 05/11/21 15:34 MB [id number]) Physical Therapy Plan Discharge Physical Therapy Discharge Reasons No Longer Attending PT Discharge Comments Pt did not schedule more appointments at last PT session despite PT encouraging her to do so and has not been seen in two weeks. Will d/c PT.
== END 2021-05-30 08:29 ==
LOC: PHYS 07:30
PROVIDERS: PCP Nurse Practitioner; Referring Provider Nurse Practitioner; Visit Provider Nurse Practitioner
DX: R42 Dizziness and giddiness (principal); M54.2 Cervicalgia
CPT/HCPCS: 97110; 97112; 97163; 97535

== ENCOUNTER → 2021-07-05 09:53 | Outpatient (CLI) | payer OTHER, SELFPAY ==
[2020-12-13 13:17] VITALS: BMI 33.6
== END ==
PROVIDERS: PCP Nurse Practitioner; Visit Provider Physician Assistant
DX: R35.0 Frequency of micturition (principal); N89.8 Other specified noninflammatory disorders of vagina
CPT/HCPCS: 87086; 87210